=== PATIENT | male | born 1970 | race Caucasian/White ===

== ENCOUNTER 2018-10-22 23:49 | Observation (INO) | payer SELFPAY ==
[2018-10-23 00:10] LABS: Arterial Blood Carboxyhemoglob 1.1 % (0-1.5); Blood Gas Oxyhemoglobin 95.7 % (94-97); Blood O2 Saturation 97.9 % (92-98.5)
[2018-10-23 00:20] LABS: Protime INR 1.05
[2018-10-23 00:22] LABS: Absolute Lymphocytes (CBC) 3.5 K/uL (0.7-4.9); Absolute Monocytes 0.7 K/uL (0.1-1.3); Absolute Neutrophil 12.6 K/uL (1.8-8.0); Basophils % 0.6 % (0-1.3); Eosinophils % 5.1 % (0-4.4); Hematocrit 45.6 % (39.6-49.0); Lymphocytes % 19.4 % (15.3-44.8); Monocytes % 4.2 % (3.3-12.3); RBC Red Blood Cell Count 4.91 M/uL (4.33-5.43)
[2018-10-23 00:37] LABS: ALT/SGPT 31 U/L (12-78); AST/SGOT 22 U/L (15-37); Albumin 4.5 g/dL (3.4-5.0); Alkaline Phosphatase 88 U/L (45-117); BUN Blood Urea Nitrogen 8 mg/dL (7-18); Bicarbonate 32 mmol/L (21-32); Bilirubin Direct 0.2 mg/dL (0-0.2); Bilirubin Total 0.9 mg/dL (0.2-1.0); Glucose Level 137 mg/dL (74-106); Magnesium 2.2 mg/dL (1.8-2.4); NT PRO-BNP 8 pg/mL (<125); Potassium 3.9 mmol/L (3.5-5.1); Protein, Total 8.2 g/dL (6.4-8.2); Sodium Level 141 mmol/L (136-145); Troponin (Emerg Dept Use Only) < 0.02 ng/mL (0.0-0.045)
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
[2018-10-23] MEDS ORDERED: OSELTAMIVIR 75 MG CAP ONE (01:06)
[2018-10-23] MEDS ORDERED: ONDANSETRON 4 MG/2 ML VIAL IV PRN (01:58)
[2018-10-23] MEDS ORDERED: MORPHINE 2 MG/ML SYR IV PRN (01:58)
[2018-10-23] MEDS ORDERED: GUAIFENESIN/CODEINE 5ML UCUP PO PRN (01:58)
[2018-10-23] MEDS ORDERED: ACETAMINOPHEN 500 MG TAB PO PRN (01:58)
[2018-10-23] MEDS ORDERED: ALBUTEROL 2.5 MG/3 ML NEB SOL ONE (03:01)
[2018-10-23] MEDS: NA CHLORIDE 0.9% 1,000 ML IV SCH ×2 (03:47→15:20)
[2018-10-23 04:25] VITALS: BMI 24.2
[2018-10-23 04:45] LABS: Urine Appearance CLEAR; Urine Bilirubin NEGATIVE (NEG); Urine Blood NEGATIVE (NEG); Urine Color YELLOW; Urine Glucose TRACE (NEG); Urine Protein NEGATIVE (NEG)
[2018-10-23 04:46] LABS: Urine Microscopic Reflex NO UMIC
[2018-10-23] MEDS ORDERED: METHYLPREDNISOLONE 125 MG INJ IV SCH (06:00)
--- NOTE | 2018-10-23 06:59 | EKG ---
Test Date: 2018-10-22 Test Time: 23:58:14 Die Fitter: NELY MEASUREMENT RESULTS: Intervals: Rate: 118 OH: 134 QRSD: 84 QT: 324 QTc: 454 Ollie: P: 70 OH: 134 QRS: 61 T: 46 INTERPRETIVE STATEMENTS: Sinus tachycardia Junctional ST depression, probably normal Borderline ECG No previous ECG available for comparison Electronically Signed On 10-23-18 06:50:52 FORENSIC ACCOUNTANT by Ben Medina
[2018-10-23] MEDS ORDERED: MORPHINE 4 MG/ML SYR IV PRN (07:11)
[2018-10-23] MEDS: IPRATROPIUM BROM 0.5MG/2.5ML NEB PRN ×2 (08:36→15:26)
[2018-10-23] MEDS: ALBUTEROL 2.5 MG/3 ML NEB SOL NEB PRN ×2 (08:36→15:26)
--- NOTE | 2018-10-23 08:44 | P.HP ---
Certification for Inpatient Patient admitted to: Observation With expected LOS: <2 Midnights Patient will require the following post-hospital care: None Practitioner: I am a practitioner with admitting privileges, knowledge of patient current condition, hospital course, and medical plan of care. Services: Services provided to patient in accordance with Admission requirements found in Title 42 Section 412.3 of the Code of Federal Regulations Patient History Date of Service: 10/23/18 Reason for admission: influenza pneumonia History of Present Illness: Patient is a 48-year-old gentleman who is been having difficulty breathing for the last week. Patient's symptoms continued to worsen. Patient's respiratory status continued to worsen. Patient came into the hospital for further evaluation. Patient stated he was having pain whenever he was breathing. He can't get a deep breath in because he has pain on inspiration. He will be admitted to the hospital for further workup. Allergies No Known Allergies Allergy (Unverified 10/23/18 01:58) Home Medications: NK [No Home Meds] 10/23/18 - Past Medical/Surgical History Has patient received pneumonia vaccine in the past: No Diabetic: No Past Medical History: Patient denies medical history -: right hip surg - Family History Sister Medical History: Lung disease Notes: Asthma - Social History Smoking Status: Never smoker Alcohol use: Yes CD- Drugs: No Caffeine use: Yes Place of Residence: Home Review of Systems 10-point ROS is otherwise unremarkable Physical Examination - Vital Signs Temperature: 97.9 F Blood Pressure: 140/95 Pulse: 115 Respirations: 16 Pulse Ox (%): 100 - Physical Exam General: Alert, In no apparent distress, Oriented x3 HEENT: Atraumatic, PERRLA, Mucous membr. moist/pink, EOMI, Sclerae nonicteric Neck: Supple, 2+ carotid pulse no bruit, No LAD, Without JVD or thyroid abnormality Respiratory: Diminished, Expiratory wheezes Cardiovascular: Regular rate/rhythm, Normal S1 S2, No murmurs Gastrointestinal: Normal bowel sounds, Soft and benign, Non-distended, No tenderness Musculoskeletal: No clubbing, No swelling, No tenderness Integumentary: No rashes Neurological: Normal gait, Normal speech, Normal strength at 5/5 x4 extr, Normal tone, Sensation intact, Cranial nerves 3-12 intact, Normal affect Lymphatics: No axilla or inguinal lymphadenopathy - Studies Laboratory Data (last 24 hrs) 10/23/18 00:00: PT 12.4, INR 1.05 10/23/18 00:00: WBC 17.8 H, Hgb 15.7, Hct 45.6, Plt Count 377 10/23/18 00:00: Sodium 141, Potassium 3.9, BUN 8, Creatinine 1.09, Glucose 137 H , Magnesium 2.2, Total Bilirubin 0.9, AST 22, ALT 31, Alkaline Phosphatase 88 Microbiology Data (last 24 hrs): 10/23/18 00:10 Nasopharnyx Influenza Type A Antigen Screen - Final 10/23/18 00:10 Nasopharnyx Influenza Type B Antigen Screen - Final Assessment & Plan - Problems (Diagnosis) (1) Influenza, pneumonia Current Visit: Yes Status: Acute (2) Reactive airway disease Current Visit: Yes Status: Acute - Plan -nebs, steroids, and antivirals -O2 per protocol. -peak flow measurements -repeat chest x-ray -pulmonary consultation if symptoms worsen Discharge Plan: Home Plan to discharge in: 48 Hours - Advance Directives Does patient have a Living Will: No Does patient have a Durable POA for Healthcare: No - Code Status/Comfort Care Code Status Assessed: Yes Code Status: Full Code Critical Care: No Time Spent Managing PTS Care (In Minutes): 45
[2018-10-23 08:47] LABS: Absolute Lymphocytes (CBC) 0.7 K/uL (0.7-4.9); Absolute Monocytes 0.1 K/uL (0.1-1.3); Absolute Neutrophil 11.7 K/uL (1.8-8.0); Basophils % 0.5 % (0-1.3); Eosinophils % 0.3 % (0-4.4); Hematocrit 44.7 % (39.6-49.0); Lymphocytes % 5.6 % (15.3-44.8); MPV 8.4 fL (7.6-11.3); Monocytes % 0.4 % (3.3-12.3)
--- NOTE | 2018-10-23 08:51 | RAD REPORT ---
EXAM DESCRIPTION: RAD - Chest Single View - 10/23/2018 12:17 am CLINICAL HISTORY: SOB Chest pain. COMPARISON: Thorax W/ Con dated 10/23/2018 FINDINGS: Portable technique limits examination quality. The lungs are grossly clear. The heart is normal in size. No displaced fractures. IMPRESSION: No acute intrathoracic process suspected.
--- NOTE | 2018-10-23 08:58 | RAD REPORT ---
EXAM DESCRIPTION: CT - Thorax W/ Con CLINICAL HISTORY: Chest pain pneumonia; rubs COMPARISON: No comparisons FINDINGS: The lungs are clear. No pleural thickening or pleural effusion. No pneumothorax. No axillary, mediastinal or hilar adenopathy. No concerning bony finding. No gross upper abdominal finding. All CT scans are performed using dose optimization technique as appropriate and may include automated exposure control or mA/KV adjustment according to patient size. IMPRESSION: Negative study.
[2018-10-23] MEDS ORDERED: OSELTAMIVIR 75 MG CAP PO SCH (09:00)
[2018-10-23] MEDS ORDERED: CEFTRIAXONE/SWI 1gm 1 GM/10 ML SYR IV SCH (09:00)
[2018-10-23] MEDS ORDERED: CEFTRIAXONE 1 GM/NS 50 ML 1 GM/50 ML BAG IV SCH (09:00)
[2018-10-23 09:02] LABS: Albumin 4.2 g/dL (3.4-5.0); Potassium 4.1 mmol/L (3.5-5.1); Protein, Total 7.9 g/dL (6.4-8.2)
[2018-10-23 09:19] LABS: Blood Morphology Comment NOT SEEN (NOT SEEN); Platelet Estimate ADEQ; Urine White Blood Cell Casts OK
[2018-10-23 09:26] VITALS: O2SAT 95
[2018-10-23 15:04] VITALS: BP 135/79; TEMP 98.6
== END 2018-10-23 17:30 | disposition home or self-care (01) ==
LOC: ER 23:49 → ERHOLD 10-23 01:59 → 2ND 10-23 02:44
PROVIDERS: ADMIT Hospitalist; ATTEND Hospitalist
DX: J11.00 Influenza due to unidentified influenza virus with unspecified type of pneumonia (principal); J45.909 Unspecified asthma, uncomplicated
CPT/HCPCS: 36415; 71045; 71260; 80048; 80053; 80076; 81003; 82805; 83735; 83880; 84484; 85025; 85610; 87040; 87804; 93005; 94660; 99285; G0378; J0696; J2930; J7030; Q9967

== ENCOUNTER 2018-11-18 19:37 | Emergency (ER) | payer SELFPAY ==
[2018-11-18] MEDS ORDERED: LEVALBUTEROL 1.25 MG/3 ML NEB ONE (20:22)
[2018-11-18] MEDS ORDERED: predniSONE 20 MG TAB ONE (20:22)
[2018-11-18] MEDS ORDERED: IPRATROPIUM BROM 0.5MG/2.5ML ONE (20:22)
--- NOTE | 2018-11-18 20:44 | RAD REPORT ---
EXAM DESCRIPTION: RAD - Chest Pa And Lat (2 Views) - 11/18/2018 8:24 pm CLINICAL HISTORY: Shortness of breath COMPARISON: September 2018 TECHNIQUE: PA and lateral views of the chest were obtained. FINDINGS: The lungs are clear of focal finding. Interstitial markings are prominent but not clearly different. Heart size is normal and central vasculature is within normal limits. No pleural effusi on or pneumothorax seen. No acute bony finding noted. No aortic abnormality. IMPRESSION: No acute cardiopulmonary process. No significant change from comparison.
[2018-11-18] MEDS ORDERED: DIAZEPAM 10 MG/2 ML INJ SYRINGE ONE (21:36)
[2018-11-18] MEDS ORDERED: EPINEPHRINE INH 0.5 ML VIAL IH ONE (21:36)
--- NOTE | 2018-11-18 22:47 | ER ---
Nurse's Notes [facility] Name: Oni Barroso Age: 48 yrs Sex: Male : 1970 Arrival Date: 11/18/2018 Time: 19:40 Bed 2 Private MD: Diagnosis: Asthma Presentation: 11/18 19:41 Presenting complaint: EMS states: Shortness of breath for about one day. Had these same ed1 symptoms about a month ago. Transition of care: patient was not received from another setting of care. Onset of symptoms was November 17, 2018. Risk Assessment: Do you want to hurt yourself or someone else? Patient reports no desire to harm self or others. Initial Sepsis Screen: Does the patient meet any 2 criteria? No. Patient's initial sepsis screen is negative. Does the patient have a suspected source of infection? No. Patient's initial sepsis screen is negative. Care prior to arrival: Medication(s) given: Atrovent Neb x 1, Soul-medrol 125mg IV IV initiated. 20 GA, in the left antecubital area, Med neb given. Oxygen administered. via nasal cannula. 19:41 Method Of Arrival: EMS: [facility] ed1 19:41 Acuity: LASHAUN 3 ed1 Triage Assessment: 19:45 General: Appears in no apparent distress. Behavior is calm, cooperative. Pain: Denies ed1 pain. EENT: No signs and/or symptoms were reported regarding the EENT system. Neuro: Level of Consciousness is awake, alert, obeys commands, Oriented to person, place, time, situation. Cardiovascular: Denies chest pain, Heart tones S1 S2 present Rhythm is sinus tachycardia. Respiratory: Reports shortness of breath at rest since yesterday Airway is patent Respiratory effort is even, unlabored, Respiratory pattern is regular, symmetrical, Breath sounds with wheezes bilaterally. Onset: The symptoms/episode began/occurred yesterday, the patient has moderate shortness of breath. GI: Abdomen is non-distended, Bowel sounds present X 4 quads. Patient currently denies diarrhea, nausea, vomiting. : No signs and/or symptoms were reported regarding the genitourinary system. Derm: Skin is intact, is healthy with good turgor, Skin is dry, Skin is normal, Skin temperature is warm. Musculoskeletal: Circulation, motion, and sensation intact. Range of motion: intact in all extremities. Historical: - Allergies: 19:45 No Known Allergies; ed1 - Home Meds: 19:45 Albuterol Inhl [Active]; ed1 - PMHx: 19:45 None; ed1 - PSHx: 19:45 right leg fracture repair; ed1 - Immunization history:: Adult Immunizations up to date, Flu vaccine is not up to date. - Social history:: Smoking status: Patient/guardian denies using tobacco, Patient/guardian denies using alcohol, street drugs, The patient lives with family. - Ebola Screening: : Patient negative for fever greater than or equal to 101.5 degrees Fahrenheit, and additional compatible Ebola Virus Disease symptoms Patient denies exposure to infectious person Patient denies travel to an Ebola-affected area in the 21 days before illness onset No symptoms or risks identified at this time. - Family history:: not pertinent. Screenin:49 Abuse screen: Denies threats or abuse. Denies injuries from another. Nutritional ed1 screening: No deficits noted. Tuberculosis screening: No symptoms or risk factors identified. Fall Risk No fall in past 12 months (0 pts). No secondary diagnosis (0 pts). IV access (20 points). Ambulatory Aid- None/Bed Rest/Nurse Assist (0 pts). Gait- Normal/Bed Rest/Wheelchair (0 pts) Mental Status- Oriented to own ability (0 pts). Total Brar Fall Scale indicates No Risk (0-24 pts). Assessment: 19:49 Reassessment: See triage assessment. Cardiovascular: Denies chest pain, Heart tones S1 ed1 S2 present Rhythm is sinus tachycardia. 21:04 Reassessment: Patient appears in no apparent distress at this time. Patient and/or ed1 family updated on plan of care and expected duration. Pain level reassessed. Patient is alert, oriented x 3, equal unlabored respirations, skin warm/dry/pink. Patient denies pain at this time. Respiratory: Airway is patent Respiratory effort is even, unlabored, Respiratory pattern is regular, symmetrical, Breath sounds with wheezes bilaterally. the patient has moderate shortness of breath. 22:33 Reassessment: Patient appears in no apparent distress at this time. Patient and/or ed1 family updated on plan of care and expected duration. Pain level reassessed. Patient is alert, oriented x 3, equal unlabored respirations, skin warm/dry/pink. Patient denies pain at this time. Patient states feeling better. Patient states symptoms have improved. 23:00 Reassessment: Patient appears in no apparent distress at this time. Patient and/or ed1 family updated on plan of care and expected duration. Pain level reassessed. Patient is alert, oriented x 3, equal unlabored respirations, skin warm/dry/pink. Patient denies pain at this time. Patient states feeling better. Patient states symptoms have improved. Vital Signs: 19:45 BP 173 / 106; Pulse 118; Resp 20; Temp 98.4; Pulse Ox 98% on R/A; Pain 0/10; ed1 19:55 BP 145 / 92; Pulse 122; Resp 12; Pulse Ox 98% on R/A; lp1 21:04 BP 128 / 93; Pulse 120; Resp 21; Pulse Ox 100% on R/A; Pain 0/10; ed1 22:33 BP 122 / 74; Pulse 126; Resp 22; Pulse Ox 93% on R/A; Pain 0/10; ed1 ED Course: 19:40 Patient arrived in ED. ed1 19:43 Triage completed. ed1 19:45 Jennifer Ramirez, RN is Primary Nurse. ed1 19:45 Arm band placed on. ed1 19:49 Awaiting ED provider evaluation. ed1 19:49 Patient has correct armband on for positive identification. Placed in gown. Bed in low ed1 position. Call light in reach. Side rails up X2. tractor operator helper on. Pulse ox on. NIBP on. 19:49 Maintain EMS IV. Dressing intact. Good blood return noted. Site clean \T\ dry. Gauge \T\ ed 1 site: 20g left a/c. 19:59 Livan Lund MD is Attending Physician. ma2 20:22 Chest Pa And Lat (2 Views) XRAY In Process Unspecified. EDMS 23:00 No provider procedures requiring assistance completed. IV discontinued, intact, ed1 bleeding controlled, No redness/swelling at site. Pressure dressing applied. Administered Medications: 20:15 CANCELLED (Other Intervention Used): Albuterol 2.5 mg Inhalation every 20 minutes x3 ed1 20:16 Drug: AtroVENT Aerosol 0.5 mg Route: Inhalation; ed1 20:16 Drug: predniSONE 60 mg Route: PO; ed1 21:05 Follow up: Response: No adverse reaction ed1 20:16 Drug: Xopenex (3) 1.25 mg Route: Inhalation; ed1 20:36 Drug: AtroVENT Aerosol 0.5 mg Route: Inhalation; ed1 20:56 Drug: AtroVENT Aerosol 0.5 mg Route: Inhalation; ed1 21:34 Drug: Racemic EPINPHrine 0.5 ml Route: Inhalation; ed1 21:35 Drug: Valium 5 mg Route: IVP; Site: left antecubital; ed1 22:34 Drug: Valium 5 mg Route: IVP; Site: left antecubital; ed1 22:59 Follow up: Response: No adverse reaction ed1 22:59 Drug: AZITHromycin 500 mg Route: PO; ed1 22:59 Follow up: Response: Medication administered at discharge. ed1 Outcome: 22:45 Discharge ordered by . [email or web address] 23:00 Discharged to home ambulatory, with friend. ed1 23:00 Condition: good 23:00 Discharge instructions given to patient, Instructed on discharge instructions, follow up and referral plans. medication usage, Demonstrated understanding of instructions, follow-up care, medications, Prescriptions given X 3. 23:01 Patient left the ED. ed1 Signatures: Dispatcher [employer] EDMS Jennifer Ramirez RN RN ed1 Shereen Reynoso RN RN lp1 Livan Lund MD MD ma2 Corrections: (The following items were deleted from the chart) 21:31 21:30 Valium 5 mg IVP in left antecubital ed1 ed1 22:10 21:35 Valium 5 mg IVP in left antecubital ed1 ed1
--- NOTE | 2018-11-18 22:47 | EDPHYS ---
Physician Documentation [facility] Name: Oni Barroso Age: 48 yrs Sex: Male : 1970 Arrival Date: 11/18/2018 Time: 19:40 Bed 2 Private MD: ED Physician Livan Lund HPI: 11/18 20:06 This 48 yrs old Male presents to ER via EMS with complaints of Shortness Of ma2 Breath. 20:06 The patient has shortness of breath at rest. Onset: The symptoms/episode began/occurred ma2 gradually, 1 week(s) ago. Duration: The symptoms are continuous. Associated signs and symptoms: Pertinent positives: non-productive cough, Pertinent negatives: chest pain, diaphoresis, fever, loss of consciousness, nausea. Severity of symptoms: At their worst the symptoms were mild in the emergency department the symptoms are unchanged. The patient has experienced similar episodes in the past. Historical: - Allergies: 19:45 No Known Allergies; ed1 - Home Meds: 19:45 Albuterol Inhl [Active]; ed1 - PMHx: 19:45 None; ed1 - PSHx: 19:45 right leg fracture repair; ed1 - Immunization history:: Adult Immunizations up to date, Flu vaccine is not up to date. - Social history:: Smoking status: Patient/guardian denies using tobacco, Patient/guardian denies using alcohol, street drugs, The patient lives with family. - Ebola Screening: : Patient negative for fever greater than or equal to 101.5 degrees Fahrenheit, and additional compatible Ebola Virus Disease symptoms Patient denies exposure to infectious person Patient denies travel to an Ebola-affected area in the 21 days before illness onset No symptoms or risks identified at this time. - Family history:: not pertinent. ROS: 20:06 Constitutional: Negative for fever, chills, and weight loss. ma2 20:06 Respiratory: Positive for shortness of breath, Negative for hemoptysis, pleurisy, sputum production, acute changes. 20:06 All other systems are negative. Exam: 20:06 Constitutional: This is a well developed, well nourished patient who is awake, alert, ma2 and in no acute distress. ENT: Nares patent. No nasal discharge, no septal abnormalities noted. Tympanic membranes are normal and external auditory canals are clear. Oropharynx with no redness, swelling, or masses, exudates, or evidence of obstruction, uvula midline. Mucous membranes moist. Chest/axilla: Normal chest wall appearance and motion. Nontender with no deformity. No lesions are appreciated. Cardiovascular: Regular rate and rhythm with a normal S1 and S2. No gallops, murmurs, or rubs. Normal PMI, no JVD. No pulse deficits. Abdomen/GI: Soft, non-tender, with normal bowel sounds. No distension or tympany. No guarding or rebound. No evidence of tenderness throughout. MS/ Extremity: Pulses equal, no cyanosis. Neurovascular intact. Full, normal range of motion. Neuro: Awake and alert, GCS 15, oriented to person, place, time, and situation. Cranial nerves II-XII grossly intact. Motor strength 5/5 in all extremities. Sensory grossly intact. Cerebellar exam normal. Normal gait. 20:06 Respiratory: moderate respiratory distress is noted, Respirations: no acute changes, asymmetrical chest movement, Breath sounds: wheezing: Respiratory rate: 20 Vital Signs: 19:45 BP 173 / 106; Pulse 118; Resp 20; Temp 98.4; Pulse Ox 98% on R/A; Pain 0/10; ed1 19:55 BP 145 / 92; Pulse 122; Resp 12; Pulse Ox 98% on R/A; lp1 21:04 BP 128 / 93; Pulse 120; Resp 21; Pulse Ox 100% on R/A; Pain 0/10; ed1 22:33 BP 122 / 74; Pulse 126; Resp 22; Pulse Ox 93% on R/A; Pain 0/10; ed1 MDM: 19:59 Patient medically screened. ma2 20:06 Differential diagnosis: Anxiety Reaction asthma, pneumonia, reactive airway disease. ma2 Antibiotic administration: Not indicated. Data reviewed: vital signs, nurses notes, lab test result(s), radiologic studies. Counseling: I had a detailed discussion with the patient and/or guardian regarding: the historical points, exam findings, and any diagnostic results supporting the discharge/admit diagnosis, the presence of at least one elevated blood pressure reading (>120/80) during this emergency department visit. 22:45 Response to treatment: the patient's symptoms have markedly improved after treatment. ny2 11/18 19:55 Order name: Chest Pa And Lat (2 Views) XRAY; Complete Time: 21:13 lp1 11/18 19:55 Order name: EKG; Complete Time: 19:55 lp1 11/18 19:55 Order name: EKG - Nurse/Tech; Complete Time: 19:55 lp1 Administered Medications: 20:15 CANCELLED (Other Intervention Used): Albuterol 2.5 mg Inhalation every 20 minutes x3 ed1 20:16 Drug: AtroVENT Aerosol 0.5 mg Route: Inhalation; ed1 20:16 Drug: predniSONE 60 mg Route: PO; ed1 21:05 Follow up: Response: No adverse reaction ed1 20:16 Drug: Xopenex (3) 1.25 mg Route: Inhalation; ed1 20:36 Drug: AtroVENT Aerosol 0.5 mg Route: Inhalation; ed1 20:56 Drug: AtroVENT Aerosol 0.5 mg Route: Inhalation; ed1 21:34 Drug: Racemic EPINPHrine 0.5 ml Route: Inhalation; ed1 21:35 Drug: Valium 5 mg Route: IVP; Site: left antecubital; ed1 22:34 Drug: Valium 5 mg Route: IVP; Site: left antecubital; ed1 22:59 Follow up: Response: No adverse reaction ed1 22:59 Drug: AZITHromycin 500 mg Route: PO; ed1 22:59 Follow up: Response: Medication administered at discharge. ed1 Disposition: 11/18/18 22:45 Discharged to Home. Impression: Asthma. - Condition is Stable. - Discharge Instructions: Asthma, Acute Bronchospasm. - Prescriptions for Medrol (Melvin) 4 mg Oral Tablets, Dose Pack - take 1 tablet by ORAL route as directed - follow package instructions; 1 packet. Flovent HFA 44 mcg/actuation Inhalation Aerosol - inhale 2 puff by INHALATION route every 12 hours; 1 Inhaler. Albuterol Sulfate 90 mcg/actuation - inhale 1-2 puff by INHALATION route every 4-6 hours; 1 Inhaler. - Medication Reconciliation Form, Thank You Letter, Antibiotic Education, Prescription Opioid Use form. - Follow up: Private Physician; When: Tomorrow; Reason: Continuance of care. Signatures: Dispatcher [employer] EDJennifer Dupree RN RN ed1 Shereen Reynoso RN RN lp1 Livan Lund MD MD ma2 Corrections: (The following items were deleted from the chart) 20:15 20:06 Albuterol 2.5 mg Inhalation every 20 minutes x3 ordered. ma2 ed1 23:01 22:45 11/18/2018 22:45 Discharged to Home. Impression: Asthma. Condition is Stable. ed1 Discharge Instructions: Asthma, Acute Bronchospasm. Prescriptions for Medrol (Melvin) 4 mg Oral Tablets, Dose Pack - take 1 tablet by ORAL route as directed - follow package instructions; 1 packet, Flovent HFA 44 mcg/actuation Inhalation Aerosol - inhale 2 puff by INHALATION route every 12 hours; 1 Inhaler, Albuterol Sulfate 90 mcg/actuation - inhale 1-2 puff by INHALATION route every 4-6 hours; 1 Inhaler. and Forms are Medication Reconciliation Form, Thank You Letter, Antibiotic Education, Prescription Opioid Use. Follow up: Private Physician; When: Tomorrow; Reason: Continuance of care. ma2
[2018-11-18] MEDS ORDERED: AZITHROMYCIN 250 MG TAB ONE (23:02)
[2018-11-18 23:09] VITALS: TEMP 98.4
[2018-11-18 23:21] VITALS: BP 122/74; O2SAT 93
--- NOTE | 2018-11-19 06:56 | EKG ---
Test Date: 2018-11-18 Test Time: 19:47:29 Jewelry Setter: GOKUL MEASUREMENT RESULTS: Intervals: Rate: 117 IN: 116 QRSD: 78 QT: 306 QTc: 426 Lavinia: P: 6 IN: 116 QRS: 79 T: 58 INTERPRETIVE STATEMENTS: Sinus tachycardia Otherwise normal ECG Compared to ECG 10/22/2018 23:58:14 ST (T wave) deviation no longer present Electronically Signed On 11-19-18 06:54:44 IRON MINER BLASTING by Ben Medina
== END 2018-11-18 23:01 | disposition home or self-care (01) ==
LOC: ER 19:37
DX: J45.909 Unspecified asthma, uncomplicated (principal)
CPT/HCPCS: 71046; 93005; 99285; J3360; J7512

== ENCOUNTER 2018-12-03 20:29 | Inpatient (IN) | payer SELFPAY ==
[2018-12-03] MEDS ORDERED: IPRATROPIUM BROM 0.5MG/2.5ML ONE ×2 (20:53→22:26)
[2018-12-03] MEDS ORDERED: ALBUTEROL 2.5 MG/3 ML NEB SOL ONE ×2 (20:53→22:25)
--- NOTE | 2018-12-03 20:54 | RAD REPORT ---
EXAM DESCRIPTION: RAD - Chest Single View - 12/03/2018 8:49 pm CLINICAL HISTORY: COPD Chest pain. COMPARISON: Chest Pa And Lat (2 Views) dated 11/18/2018; Chest Single View dated 10/23/2018 FINDINGS: Portable technique limits examination quality. The lungs are mildly emphysematous but grossly clear. The heart is normal in size. No displaced fract ures. IMPRESSION: Mild COPD.
[2018-12-03 21:13] LABS: Absolute Lymphocytes (CBC) 2.3 K/uL (0.7-4.9); Absolute Monocytes 0.8 K/uL (0.1-1.3); Absolute Neutrophil 17.9 K/uL (1.8-8.0); Basophils % 0.5 % (0-1.3); Eosinophils % 3.2 % (0-4.4); Hematocrit 42.9 % (39.6-49.0); Lymphocytes % 10.6 % (15.3-44.8); MPV 8.7 fL (7.6-11.3); Monocytes % 3.7 % (3.3-12.3); RBC Red Blood Cell Count 4.56 M/uL (4.33-5.43)
[2018-12-03 21:22] LABS: BUN Blood Urea Nitrogen 11 mg/dL (7-18); Bicarbonate 28 mmol/L (21-32); Glucose Level 115 mg/dL (74-106); NT PRO-BNP 37 pg/mL (<125); Potassium 3.4 mmol/L (3.5-5.1); Sodium Level 142 mmol/L (136-145); Troponin (Emerg Dept Use Only) < 0.02 ng/mL (0.0-0.045)
[2018-12-03 22:35] LABS: Blood Morphology Comment NOT SEEN (NOT SEEN); Platelet Estimate ADEQ
--- NOTE | 2018-12-03 23:45 | ER ---
Nurse's Notes [facility] Name: Oni Barroso Age: 48 yrs Sex: Male : 1970 Arrival Date: 12/03/2018 Time: 20:38 Bed 4 Private MD: Diagnosis: Chronic obstructive pulmonary disease with (acute) exacerbation;Acute respiratory failure with hypoxia Presentation: 12/03 20:45 Presenting complaint: EMS states: they were toned out for report of pt having bb difficulty breathing worsening over the last two hours pt has hx of asthma. Transition of care: patient was not received from another setting of care. Onset of symptoms was December 03, 2018. Risk Assessment: Do you want to hurt yourself or someone else? Patient reports no desire to harm self or others. Initial Sepsis Screen: Does the patient meet any 2 criteria? No. Patient's initial sepsis screen is negative. Does the patient have a suspected source of infection? No. Patient's initial sepsis screen is negative. Care prior to arrival: pt on Cpap Medication(s) given: Albuterol Neb x 1, Atrovent Neb x 1, Normal saline infusion, solu-medrol 125 mg IV initiated. 18 GA, in the right antecubital area. 20:45 Method Of Arrival: Ambulatory bb 20:45 Acuity: LASHAUN 2 bb Historical: - Allergies: 20:50 No Known Allergies; bb - Home Meds: 20:50 Albuterol Inhl [Active]; bb - PMHx: 20:50 Asthma; bb - PSHx: 20:50 right leg fracture repair; bb - Immunization history:: Adult Immunizations up to date, Flu vaccine is not up to date. - Social history:: Smoking status: Patient/guardian denies using tobacco, Patient uses alcohol, occasionally. Patient/guardian denies using street drugs. - Ebola Screening: : No symptoms or risks identified at this time. Screenin:00 Abuse screen: Denies threats or abuse. Denies injuries from another. Nutritional rr5 screening: No deficits noted. Tuberculosis screening: No symptoms or risk factors identified. Fall Risk IV access (20 points). Total Brar Fall Scale indicates No Risk (0-24 pts). Assessment: 20:50 General: Appears in no apparent distress. comfortable, Behavior is calm, cooperative, rr5 appropriate for age. Pain: Complains of pain in chest Pain does not radiate. Pain currently is 5 out of 10 on a pain scale. Quality of pain is described as aching, Pain began gradually, Is intermittent. Neuro: Level of Consciousness is awake, alert, obeys commands, Oriented to person, place, time, situation, Appropriate for age. Cardiovascular: Reports chest pain, Capillary refill < 3 seconds Patient's skin is warm and dry. Rhythm is sinus tachycardia. Respiratory: Reports shortness of breath asthma attack Airway is patent Respiratory effort is even, Respiratory pattern is regular, tachypnea. GI: No signs and/or symptoms were reported involving the gastrointestinal system. : No signs and/or symptoms were reported regarding the genitourinary system. EENT: No signs and/or symptoms were reported regarding the EENT system. Derm: Skin is intact, Skin temperature is warm. Musculoskeletal: Capillary refill < 3 seconds, Range of motion: intact in all extremities. 21:15 Reassessment: Patient appears in no apparent distress at this time. Patient is alert, rr5 oriented x 3, equal unlabored respirations, skin warm/dry/pink. Patient states feeling better. Patient states symptoms have improved. 22:00 Reassessment: Patient appears in no apparent distress at this time. Patient is alert, rr5 oriented x 3, equal unlabored respirations, skin warm/dry/pink. no complaints made. continue on BIPAP Patient states feeling better. Patient states symptoms have improved. 23:00 Reassessment: Patient appears in no apparent distress at this time. came back from CT rr5 scan hooked back to BIPAP. 12/04 00:36 Reassessment: Patient appears in no apparent distress at this time. Patient and/or jd3 family updated on plan of care and expected duration. Pain level reassessed. Patient is alert, oriented x 3, equal unlabored respirations, skin warm/dry/pink. awaiting room assignment for admission. 01:57 Reassessment: Patient appears in no apparent distress at this time. Patient and/or jd3 family updated on plan of care and expected duration. Pain level reassessed. Patient is alert, oriented x 3, equal unlabored respirations, skin warm/dry/pink. Vital Signs: 12/03 20:50 BP 122 / 94; Pulse 112; Resp 32 S; Temp 97.6(A); Pulse Ox 100% on R/A; Weight 77.11 kg bb (R); Height 5 ft. 10 in. (177.80 cm) (R); Pain 5/10; 21:30 BP 105 / 76; Pulse 106; Resp 30; Pulse Ox 99% on BiPAP; rr5 22:30 BP 110 / 68; Pulse 105; Resp 25; Pulse Ox 100% on BiPAP; rr5 23:11 BP 125 / 92; Pulse 102; Resp 28; Pulse Ox 99% on BiPAP; rr5 12/04 00:36 BP 132 / 82; Pulse 105; Resp 20 S; Pulse Ox 100% on R/A; jd3 01:55 BP 132 / 82; Pulse 115; Resp 22; Pulse Ox 100% ; jd3 12/03 20:50 Body Mass Index 24.39 (77.11 kg, 177.80 cm) bb ED Course: 12/03 20:38 Patient arrived in ED. ds1 20:38 Elpidio Guzman MD is Attending Physician. gs 20:49 Triage completed. bb 20:50 XRAY Chest (1 view) In Process Unspecified. EDMS 20:50 Arm band placed on Patient placed in an exam room, on a stretcher, on campus monitor, bb on pulse oximetry, on Bipap. 20:50 Patient has correct armband on for positive identification. Placed in gown. Bed in low rr5 position. Call light in reach. Side rails up X2. radiation monitor on. Pulse ox on. NIBP on. 20:50 Maintain EMS IV. Dressing intact. IV is patent, is intact, with fluids infusing freely, rr5 with good blood return. 21:03 Gaurav Ruiz RN is Primary Nurse. rr5 22:[address] via stretcher. vm2 23:14 CT Chest Wo Con In Process Unspecified. EDMS 23:44 Livan Nicolas MD is Hospitalizing Provider. gs 12/04 02:02 No provider procedures requiring assistance completed. Patient admitted, IV remains in jd3 place. Administered Medications: 12/03 20:45 Drug: Albuterol 2.5 mg Route: Inhalation; rr5 20:45 Drug: AtroVENT Aerosol 0.5 mg Route: Inhalation; rr5 22:20 Drug: Albuterol 2.5 mg Route: Inhalation; rr5 22:20 Drug: AtroVENT Aerosol 0.5 mg Route: Inhalation; rr5 Outcome: 23:44 Decision to Hospitalize by Provider. 12/04 02:02 Admitted to Med/surg accompanied by tech, via stretcher, room 231, with oxygen, with jd3 chart, Report called to Rosalba FERNANDEZ Condition: stable Instructed on the need for admit, Demonstrated understanding of instructions. 02:25 Patient left the ED. jd3 Signatures: Dispatcher [employer] EDNE Amira Vallejo ds1 Maricel Reece RN RN Omayra Ayala 2 Elpidio Guzman MD MD gs Davies, Jonathon, RN RN jd3 Gaurav Ruiz RN RN rr5
--- NOTE | 2018-12-03 23:45 | EDPHYS ---
Physician Documentation [facility] Unit Name: Oni Barroso Age: 48 yrs Sex: Male : 1970 Arrival Date: 12/03/2018 Time: 20:38 Bed 4 Private MD: ED Physician Elpidio Guzman HPI: 12/03 23:30 This 48 yrs old Male presents to ER via Ambulatory with complaints of gs Breathing Difficulty. 23:30 Onset: The symptoms/episode began/occurred today, at 14:00. Duration: The symptoms are gs continuous. The patient's shortness of breath is aggravated by coughing, eating, exertion. Associated signs and symptoms: Pertinent positives: chest pain, non-productive cough, Pertinent negatives: fever. Severity of symptoms: At their worst the symptoms were severe in the emergency department the symptoms are unchanged. The patient has experienced similar episodes in the past, a few times. Historical: - Allergies: 20:50 No Known Allergies; bb - Home Meds: 20:50 Albuterol Inhl [Active]; bb - PMHx: 20:50 Asthma; bb - PSHx: 20:50 right leg fracture repair; bb - Immunization history:: Adult Immunizations up to date, Flu vaccine is not up to date. - Social history:: Smoking status: Patient/guardian denies using tobacco, Patient uses alcohol, occasionally. Patient/guardian denies using street drugs. - Ebola Screening: : No symptoms or risks identified at this time. ROS: 23:30 All other systems are negative. gs Exam: 23:30 Head/Face: Normocephalic, atraumatic. Eyes: Pupils equal round and reactive to light, gs extra-ocular motions intact. Lids and lashes normal. Conjunctiva and sclera are non-icteric and not injected. Cornea within normal limits. Periorbital areas with no swelling, redness, or edema. ENT: Nares patent. No nasal discharge, no septal abnormalities noted. Tympanic membranes are normal and external auditory canals are clear. Oropharynx with no redness, swelling, or masses, exudates, or evidence of obstruction, uvula midline. Mucous membranes moist. Neck: Trachea midline, no thyromegaly or masses palpated, and no cervical lymphadenopathy. Supple, full range of motion without nuchal rigidity, or vertebral point tenderness. No Meningismus. Chest/axilla: Normal chest wall appearance and motion. Nontender with no deformity. No lesions are appreciated. 23:30 Abdomen/GI: Soft, non-tender, with normal bowel sounds. No distension or tympany. No guarding or rebound. No evidence of tenderness throughout. Back: No spinal tenderness. No costovertebral tenderness. Full range of motion. Skin: Warm, dry with normal turgor. Normal color with no rashes, no lesions, and no evidence of cellulitis. MS/ Extremity: Pulses equal, no cyanosis. Neurovascular intact. Full, normal range of motion. Neuro: Awake and alert, GCS 15, oriented to person, place, time, and situation. Cranial nerves II-XII grossly intact. Motor strength 5/5 in all extremities. Sensory grossly intact. Cerebellar exam normal. Normal gait. 23:30 Constitutional: The patient appears alert, awake. 23:30 Constitutional: The patient appears in obvious distress, severely distressed. 23:30 Cardiovascular: Rate: tachycardic, Rhythm: regular, Pulses: no pulse deficits are appreciated, Heart sounds: normal. 23:30 ECG was reviewed by the Attending Physician. 23:30 Respiratory: severe repiratory distress is noted, Respirations: tachypnea, that is moderate, Breath sounds: decreased breath sounds, that are moderate, are scattered. Vital Signs: 20:50 BP 122 / 94; Pulse 112; Resp 32 S; Temp 97.6(A); Pulse Ox 100% on R/A; Weight 77.11 kg bb (R); Height 5 ft. 10 in. (177.80 cm) (R); Pain 5/10; 21:30 BP 105 / 76; Pulse 106; Resp 30; Pulse Ox 99% on BiPAP; rr5 22:30 BP 110 / 68; Pulse 105; Resp 25; Pulse Ox 100% on BiPAP; rr5 23:11 BP 125 / 92; Pulse 102; Resp 28; Pulse Ox 99% on BiPAP; rr5 12/04 00:36 BP 132 / 82; Pulse 105; Resp 20 S; Pulse Ox 100% on R/A; jd3 01:55 BP 132 / 82; Pulse 115; Resp 22; Pulse Ox 100% ; jd3 12/03 20:50 Body Mass Index 24.39 (77.11 kg, 177.80 cm) MDM: 12/03 20:38 Patient medically screened. 23:30 Differential diagnosis: Bronchitis CHF exacerbation, Chronic Obstructive Pulmonary gs Disease Myocardial Infarction pneumonia. Data reviewed: vital signs, nurses notes, lab test result(s), EKG, radiologic studies. 12/03 20:39 Order name: Basic Metabolic Panel; Complete Time: 22:01 12/03 20:39 Order name: CBC with Diff; Complete Time: 23:27 12/03 20:39 Order name: NT PRO-BNP; Complete Time: 22:01 12/03 20:39 Order name: Troponin (emerg Dept Use Only); Complete Time: 22:01 12/03 21:25 Order name: Manual Differential; Complete Time: 23:27 [facility] 12/04 00:36 Order name: CBC with Automated Diff [facility] 12/03 20:39 Order name: XRAY Chest (1 view); Complete Time: 20:58 12/03 22:02 Order name: CT Chest Wo Con 12/04 00:36 Order name: CBC with Automated Diff [facility] 12/04 00:36 Order name: Comprehensive Metabolic Panel [facility] 12/04 00:36 Order name: Comprehensive Metabolic Panel [facility] 12/04 00:37 Order name: ABG Arterial Blood Gas [facility] 12/03 20:39 Order name: EKG; Complete Time: 20:39 12/03 20:39 Order name: Cardiac monitoring; Complete Time: 20:57 12/03 20:39 Order name: EKG - Nurse/Tech; Complete Time: 20:57 12/03 20:39 Order name: IV Saline Lock; Complete Time: 20:57 12/03 20:39 Order name: Labs collected and sent; Complete Time: 20:57 12/03 20:39 Order name: O2 Per Protocol; Complete Time: 21:04 12/03 20:39 Order name: O2 Sat Monitoring; Complete Time: 21:04 12/04 00:35 Order name: CONS Pharmacy Consult [facility] 12/04 00:35 Order name: NPO [facility] 12/04 00:37 Order name: Regular EDMS EC:30 Rate is 102 beats/min. Rhythm is regular. FL interval is normal. QRS interval is gs normal. QT interval is normal. T waves are Normal. No ST changes noted. Clinical impression: Abnormal EKG without significant change. Interpreted by me. Administered Medications: 20:45 Drug: Albuterol 2.5 mg Route: Inhalation; rr5 20:45 Drug: AtroVENT Aerosol 0.5 mg Route: Inhalation; rr5 22:20 Drug: Albuterol 2.5 mg Route: Inhalation; rr5 22:20 Drug: AtroVENT Aerosol 0.5 mg Route: Inhalation; rr5 Disposition: 23:30 Critical Care:. Disposition: 12/03/18 23:44 Hospitalization ordered by Livan Nicolas for Inpatient Admission. Preliminary diagnosis are Chronic obstructive pulmonary disease with (acute) exacerbation, Acute respiratory failure with hypoxia. - Bed requested for Telemetry/MedSurg (Inpatient). - Status is Inpatient Admission. jd3 - Condition is Stable. - Problem is new. - Symptoms have improved. UTI on Admission? No Critical care time excluding procedures: 23:30 Critical care time: Bedside Care: 10 minutes, Consultation: 10 minutes, Family gs Intervention: 10 minutes. Total time: 30 minutes Signatures: Dispatcher [employer] EDPamela Agustin RN RN kl Ballard, Brenda, RN RN bb Starr, Gregory, MD MD gs Davies, Jonathon, RN RN jGaurav Medellin RN RN rr5 Corrections: (The following items were deleted from the chart) 12/04 01:22 12/03 23:44 Hospitalization Ordered by Livan Nicolas MD for Inpatient Admission. kl Preliminary diagnosis is Chronic obstructive pulmonary disease with (acute) exacerbation; Acute respiratory failure with hypoxia. Bed requested for Telemetry/MedSurg (Inpatient). Status is Inpatient Admission. Condition is Stable. Problem is new. Symptoms have improved. UTI on Admission? No. gs 12/04 02:25 01:22 12/03/2018 23:44 Hospitalization Ordered by Livan Nicolas MD for Inpatient jd3 Admission. Preliminary diagnosis is Chronic obstructive pulmonary disease with (acute) exacerbation; Acute respiratory failure with hypoxia. Bed requested for Telemetry/MedSurg (Inpatient). Status is Inpatient Admission. Condition is Stable. Problem is new. Symptoms have improved. UTI on Admission? No. kl
[2018-12-04] MEDS ORDERED: ONDANSETRON 4 MG/2 ML VIAL IV PRN (00:31)
[2018-12-04] MEDS ORDERED: MORPHINE 2 MG/ML SYR IV PRN (00:31)
[2018-12-04] MEDS ORDERED: Levofloxacin500mg IV 500 MG/100 ML BAG IV SCH (01:00)
[2018-12-04] MEDS ORDERED: NA CHLORIDE 0.9% 1,000 ML IV SCH (01:00)
[2018-12-04] MEDS: IPRATROPIUM BROM 0.5MG/2.5ML NEB SCH ×4 (02:00→20:00)
[2018-12-04] MEDS: ALBUTEROL 2.5 MG/3 ML NEB SOL NEB SCH ×2 (02:00→08:00)
[2018-12-04 03:25] VITALS: BMI 23.8
[2018-12-04] MEDS ORDERED: BUDESONIDE 0.5 MG/2 ML NEB NEB SCH (05:00)
[2018-12-04] MEDS ORDERED: METHYLPREDNISOLONE 40 MG INJ IV SCH (06:00)
[2018-12-04 06:11] LABS: Arterial Blood Carboxyhemoglob 0.9 % (0-1.5); Blood Gas Oxyhemoglobin 93.7 % (94-97); Blood O2 Saturation 95.4 % (92-98.5)
--- NOTE | 2018-12-04 07:18 | P.HP ---
Certification for Inpatient Patient admitted to: Inpatient With expected LOS: >2 Midnights Patient will require the following post-hospital care: None Practitioner: I am a practitioner with admitting privileges, knowledge of patient current condition, hospital course, and medical plan of care. Services: Services provided to patient in accordance with Admission requirements found in Title 42 Section 412.3 of the Code of Federal Regulations Patient History Date of Service: 12/04/18 Reason for admission: Shortness of breath History of Present Illness: Patient is a 48-year-old gentleman who came into the hospital with difficulty breathing. He said he has been having difficulty with his breathing for the last 2.5 years. He had moved in to a new apartment complex-[facility]-about 3 years ago. Since that time he says his respiratory status has gotten worse. He uses albuterol inhalers that he gets from is friends. He states the apartment has had mold in numerous other complexes. He stated that they did find mold in his closet. He has also used a nebulizer that he received from 1 of his friends children. He is not really sure what caused his difficulty with his breathing. He never really smoked although he has lived around people who smoke. He denies any cardiac issues. He walks his significant other to work every evening which is about a mile and a half away. He has to stop at her work can't catch his breath. He has gone on through 12 inhalers over the last 6 months. Once again these were obtained from friends as he has never gone to see a physician regarding his breathing. He denies any history of liver problems. His chest x-ray does indicate emphysematous changes. This could be a COPD exacerbation. Will also check alpha 1 antitrypsin levels. Allergies No Known Allergies Allergy (Verified 12/04/18 03:04) Home Medications: Albuterol Inhaler [Ventolin Inhaler*] 2 puff IH Q6H PRN #1 hfa.aer.ad 10/23/18 - Past Medical/Surgical History Has patient received pneumonia vaccine in the past: No Diabetic: No -: Denies any pulmonary issues -: right hip surgery - Family History Sister Medical History: Lung disease Notes: Asthma - Social History Smoking Status: Never smoker Alcohol use: No CD- Drugs: No Caffeine use: Yes Place of Residence: Home Review of Systems 10-point ROS is otherwise unremarkable Physical Examination - Vital Signs Temperature: 97.6 F Blood Pressure: 132/82 Pulse: 115 Respirations: 22 Pulse Ox (%): 96 - Physical Exam General: Alert, In no apparent distress, Oriented x3 HEENT: Atraumatic, PERRLA, Mucous membr. moist/pink, EOMI, Sclerae nonicteric Neck: Supple, 2+ carotid pulse no bruit, No LAD, Without JVD or thyroid abnormality Respiratory: Diminished, Expiratory wheezes Cardiovascular: Regular rate/rhythm, Normal S1 S2, No murmurs Gastrointestinal: Normal bowel sounds, Soft and benign, Non-distended, No tenderness Musculoskeletal: No clubbing, No swelling, No tenderness Integumentary: No rashes Neurological: Normal gait, Normal speech, Normal strength at 5/5 x4 extr, Normal tone, Sensation intact, Cranial nerves 3-12 intact, Normal affect Lymphatics: No axilla or inguinal lymphadenopathy - Studies Laboratory Data (last 24 hrs) 12/03/18 20:35: WBC 21.8 H*, Hgb 14.7, Hct 42.9, Plt Count 397 12/03/18 20:35: Sodium 142, Potassium 3.4 L, BUN 11, Creatinine 1.02, Glucose 115 H Assessment & Plan - Problems (Diagnosis) (1) Dyspnea Current Visit: Yes Status: Acute (2) Acute exacerbation of emphysema Current Visit: Yes Status: Acute - Plan Plan: 1. Continue with albuterol and Atrovent nebs 2. Continue with IV steroids 3. Outpatient pulmonary function testing 4. Pulmonary consultation 5. Room air O2 sats in a.m.; wean off of BiPAP today 6. Repeat chest x-ray in the morning 7. Peak flows as needed 8. GI and DVT prophylaxis Discharge Plan: Home Plan to discharge in: Greater than 2 days - Advance Directives Does patient have a Living Will: No Does patient have a Durable POA for Healthcare: No - Code Status/Comfort Care Code Status Assessed: Yes Code Status: Full Code Critical Care: No Time Spent Managing PTS Care (In Minutes): 50
[2018-12-04] MEDS ORDERED: BUPIVACAINE 0.5% PF 10 ML VIAL ONE (07:35)
[2018-12-04] MEDS ORDERED: BUDESONIDE 0.5 MG/2 ML NEB NEB ONE (08:45)
--- NOTE | 2018-12-04 08:46 | P.CNS ---
Date of Consult: 12/04/18 Chief Complaint: Shortness of breath History of Present Illness: patient is 48 years of age admitted to the hospital complaining of worsening dyspnea over the past 4-5 days. He was admitted to the hospital about 6 weeks ago for shortness of breath and was discharged on a tapering dose of 1st steroids and albuterol patient did improve. He has been having proctocolectomy dyspnea for the past 2 years there has been a lot of black mold discovered in his house and a recently in his bathroom. Patient does not smoke no medical history he does not take any medication at home patient does have some albuterol inhaler and a nebulizer that he used with no relief this time steroids seemed to help denies any fever cough sputum Allergies No Known Allergies Allergy (Verified 12/04/18 03:04) Home Medications: Albuterol Inhaler [Ventolin Inhaler*] 2 puff IH Q6H PRN #1 hfa.aer.ad 10/23/18 - Past Medical/Surgical History Diabetic: No -: Denies any pulmonary issues -: right hip surgery - Family History Sister Medical History: Lung disease Notes: Asthma - Social History Alcohol use: No CD- Drugs: No Caffeine use: Yes Place of Residence: Home Review of Systems 10-point ROS is otherwise unremarkable Physical Examination Temp Pulse Resp BP Pulse Ox 97.6 F 115 H 22 H 132/82 96 12/04/18 07:19 12/04/18 07:19 12/04/18 07:19 12/04/18 07:19 12/04/18 07:19 General: Alert, In no apparent distress, Oriented x3 HEENT: Atraumatic Neck: Supple Respiratory: Expiratory wheezes Cardiovascular: No edema, Normal S1 S2 Gastrointestinal: Normal bowel sounds, Soft and benign Laboratory Data (last 24 hrs) 12/03/18 20:35: WBC 21.8 H*, Hgb 14.7, Hct 42.9, Plt Count 397 12/03/18 20:35: Sodium 142, Potassium 3.4 L, BUN 11, Creatinine 1.02, Glucose 115 H - Problems (1) Reactive airway disease Onset Date: 10/24/18 Current Visit: No Status: Acute
[2018-12-04] MEDS: ALBUTEROL 2.5 MG/3 ML NEB SOL NEB PRN ×2 (08:51→13:32)
[2018-12-04] MEDS: DULERA 200/5 (MOMETASONE/FORMOTEROL) INHALER IH SCH ×2 (09:40→20:28)
[2018-12-04] MEDS: predniSONE 20 MG TAB PO SCH ×2 (09:41→20:28)
[2018-12-04] MEDS: AZITHROMYCIN 250 MG TAB PO SCH (09:41)
[2018-12-04] MEDS ORDERED: INFLUENZA VACCINE (for 3y+) 0.5 ML DOSE IMVAC ONE (10:00)
[2018-12-04 11:19] LABS: Absolute Lymphocytes (CBC) 0.8 K/uL (0.7-4.9); Absolute Monocytes 0.3 K/uL (0.1-1.3); Absolute Neutrophil 19.4 K/uL (1.8-8.0); Basophils % 0.1 % (0-1.3); Lymphocytes % 3.9 % (15.3-44.8); MPV 8.2 fL (7.6-11.3); Monocytes % 1.4 % (3.3-12.3); RBC Red Blood Cell Count 4.54 M/uL (4.33-5.43)
[2018-12-04 11:31] LABS: Bilirubin Total 1.5 mg/dL (0.2-1.0); Magnesium 2.1 mg/dL (1.8-2.4); Phosphorus 2.3 mg/dL (2.5-4.9); Protein, Total 7.5 g/dL (6.4-8.2)
--- NOTE | 2018-12-04 12:02 | RAD REPORT ---
EXAM DESCRIPTION: CT Chest Without Intravenous Contrast CLINICAL HISTORY: The patient is 48 years old and is Male; difficulty breathing TECHNIQUE: Axial computed tomography images of the chest without intravenous contrast. Sagittal an d coronal reformatted images were created and reviewed. This CT exam was performed using one or mor e of the following dose reduction techniques: automated exposure control, adjustment of the mA and/ or kV according to patient size, and/or use of iterative reconstruction technique. COMPARISON: No relevant prior studies available. FINDINGS: Lungs: A few calcified granuloma within the lung bases are present. The lungs are clear. There is no consolidation or mass. Pleural space: Unremarkable. No pneumothorax. No significant effusion. Heart: No cardiomegaly. No pericardial effusion. Bones/joints: No acute fracture. Soft tissues: The soft tissues are normal. Vasculature: Unremarkable. No thoracic aortic aneurysm. Lymph nodes: Unremarkable. No enlarged lymph nodes. IMPRESSION: Unremarkable noncontrasted CT of the chest. Electronically signed by: Lory Dunne MD 12/03/2018 11:19 PM CDT Due to temporary technical issues with the PACS/Fluency reporting system, reports are being signed by the in house radiologist as a courtesy to ensure prompt reporting. The interpreting radiologist is f ully responsible for the content of the report.
[2018-12-04] MEDS: ACETAMINOPHEN 500 MG TAB PO PRN ×2 (12:08→17:10)
[2018-12-04] MEDS ORDERED: ENOXAPARIN 30 MG/0.3 ML SQ SCH (17:00)
[2018-12-05] MEDS: IPRATROPIUM BROM 0.5MG/2.5ML NEB SCH ×3 (02:00→14:37)
[2018-12-05 06:02] LABS: Absolute Lymphocytes (CBC) 1.2 K/uL (0.7-4.9); Absolute Monocytes 1.4 K/uL (0.1-1.3); Absolute Neutrophil 23.7 K/uL (1.8-8.0); Basophils % 0.2 % (0-1.3); Hematocrit 40.8 % (39.6-49.0); Lymphocytes % 4.5 % (15.3-44.8); MPV 8.8 fL (7.6-11.3); Monocytes % 5.3 % (3.3-12.3); RBC Red Blood Cell Count 4.38 M/uL (4.33-5.43)
[2018-12-05 06:35] LABS: Albumin 3.7 g/dL (3.4-5.0); Bilirubin Total 1.2 mg/dL (0.2-1.0); Potassium 4.1 mmol/L (3.5-5.1); Protein, Total 7.2 g/dL (6.4-8.2)
[2018-12-05 07:54] LABS: Platelet Estimate INCR
[2018-12-05 07:55] LABS: Blood Morphology Comment NOT SEEN (NOT SEEN)
[2018-12-05] MEDS: AZITHROMYCIN 250 MG TAB PO SCH (08:55)
[2018-12-05] MEDS: predniSONE 20 MG TAB PO SCH (08:55)
[2018-12-05] MEDS: DULERA 200/5 (MOMETASONE/FORMOTEROL) INHALER IH SCH (08:55)
--- NOTE | 2018-12-05 10:29 | EKG ---
Test Date: 2018-12-03 Test Time: 20:53:10 [employer] Specialist: RR MEASUREMENT RESULTS: Intervals: Rate: 102 ID: 100 QRSD: 84 QT: 322 QTc: 419 [place]: P: -4 ID: 100 QRS: 75 T: 54 INTERPRETIVE STATEMENTS: Sinus tachycardia with short ID Otherwise normal ECG Compared to ECG 11/18/2018 19:47:29 Short ID interval now present Electronically Signed On 12-04-18 08:09:05 CDT by Andrea Bell
[2018-12-05 14:51] VITALS: O2SAT 98
[2018-12-05 16:02] VITALS: BP 125/69; TEMP 98
--- NOTE | 2018-12-05 16:08 | P.DS ---
Admission Date: 12/04/18 Discharge Date: 12/05/18 Disposition: ROUTINE DISCHARGE Discharge Condition: GOOD Reason for Admission: Shortness of breath Consultations: Pulmonology Procedures: Non - Problems (1) Acute asthma exacerbation Status: Acute Qualifiers: Asthma severity: moderate Asthma persistence: persistent Qualified Code(s ): J45.41 - Moderate persistent asthma with (acute) exacerbation (2) Exposed to tobacco smoke by family members smoking indoors Status: Acute Brief History of Present Illness: Patient is a 48-year-old gentleman who came into the hospital with difficulty breathing. He said he has been having difficulty with his breathing for the last 2.5 years. He had moved in to a new apartment complex-[facility]-about 3 years ago. Since that time he says his respiratory status has gotten worse. He uses albuterol inhalers that he gets from is friends. He states the apartment has had mold in numerous other complexes. He stated that they did find mold in his closet. He has also used a nebulizer that he received from 1 of his friends children. He is not really sure what caused his difficulty with his breathing. He never really smoked although he has lived around people who smoke. He denies any cardiac issues. He walks his significant other to work every evening which is about a mile and a half away. He has to stop at her work can't catch his breath. He has gone on through 12 inhalers over the last 6 months. Once again these were obtained from friends as he has never gone to see a physician regarding his breathing. He denies any history of liver problems. His chest x-ray does indicate emphysematous changes. This could be a COPD exacerbation. Will also check alpha 1 antitrypsin levels. Hospital Course: Overall during the hospital stay patient remained stable Patient was initially admitted to the hospital for dyspnea was a half acute asthma exacerbation. Patient does have an diagnosed asthma which she has never been treated for before. Patient recently had mold exposure in the house which might have exacerbated his asthma. X-ray was concerning for developing pneumonia Patient was started on duonebs, steroids, antibiotics here in the hospital. Patient had marked improvement in his symptoms and thus was discharged home under stable condition. Pulmonology was consulted who recommended the patient be discharged home on maintenance inhaler along with antibiotics along with steroids. Patient was given prescription for all the inhalers and nebulizers along with antibiotics and was discharged home under stable condition. Vital Signs/Physical Exam: Temp Pulse Resp BP Pulse Ox 98 F 104 H 20 125/69 98 12/05/18 12:00 12/05/18 12:00 12/05/18 12:00 12/05/18 12:00 12/05/18 12:00 General: Alert, In no apparent distress HEENT: Atraumatic, PERRLA, EOMI Neck: Supple, JVD not distended Respiratory: Clear to auscultation bilaterally, Normal air movement Cardiovascular: Regular rate/rhythm, Normal S1 S2 Gastrointestinal: Normal bowel sounds, No tenderness Musculoskeletal: No tenderness Integumentary: No rashes Neurological: Normal speech, Normal tone, Normal affect Lymphatics: No axilla or inguinal lymphadenopathy Laboratory Data at Discharge: WBC 26.3 K/uL (4.3-10.9) H* D 12/05/18 05:24 Hgb 14.4 g/dL (13.6-17.9) 12/05/18 05:24 Hct 40.8 % (39.6-49.0) 12/05/18 05:24 Plt Count 402 K/uL (152-406) 12/05/18 05:24 Sodium 138 mmol/L (136-145) 12/05/18 05:24 Potassium 4.1 mmol/L (3.5-5.1) 12/05/18 05:24 BUN 17 mg/dL (7-18) 12/05/18 05:24 Creatinine 0.90 mg/dL (0.55-1.3) 12/05/18 05:24 Glucose 146 mg/dL (74-106) H 12/05/18 05:24 Phosphorus 2.3 mg/dL (2.5-4.9) L 12/04/18 11:04 Magnesium 2.1 mg/dL (1.8-2.4) 12/04/18 11:04 Total Bilirubin 1.2 mg/dL (0.2-1.0) H 12/05/18 05:24 AST 15 U/L (15-37) 12/05/18 05:24 ALT 24 U/L (12-78) 12/05/18 05:24 Alkaline Phosphatase 64 U/L (45-117) 12/05/18 05:24 Home Medications: Albuterol Inhaler [Ventolin Inhaler*] 2 puff IH Q6H PRN #1 hfa.aer.ad 10/23/18 Albuterol Neb [Proventil 0.083% Neb Soln] 2.5 mg IH TIDP PRN #1 amp 12/05/18 Azithromycin [Zithromax] 500 mg PO DAILY #7 tablet 12/05/18 Mometasone/Formoterol [Dulera 200 Mcg/5 Mcg Inhaler] 2 puff IH BID #1 inhaler Prednisone [Sterapred Ds] 10 mg PO BID #30 tab.ds.pk 12/05/18 New Medications: Albuterol Neb [Proventil 0.083% Neb Soln] 2.5 mg IH TIDP PRN #1 amp PRN Reason: Shortness Of Breath Azithromycin [Zithromax] 500 mg PO DAILY #7 tablet Mometasone/Formoterol [Dulera 200 Mcg/5 Mcg Inhaler] 2 puff IH BID #1 inhaler Prednisone [Sterapred Ds] 10 mg PO BID #30 tab.ds.pk Patient Discharge Instructions: Please f.u with PCP and Dr. Monaco in 1 to 2 days post discharge. New medication Diet: Regular Activity: Ad cassie Followup: Jhon Jennings MD [ACTIVE - CAN ADMIT] - 1 Week
== END 2018-12-05 15:04 | disposition home or self-care (01) | DRG 203 ==
LOC: ER 20:29 → ERHOLD 12-04 00:50 → 2ND 12-04 02:09
PROVIDERS: ADMIT Hospitalist; ATTEND Family Medicine
DX: J45.41 Moderate persistent asthma with (acute) exacerbation (principal); Z77.22 Contact with and (suspected) exposure to environmental tobacco smoke (acute) (chronic); Z77.120 Contact with and (suspected) exposure to mold (toxic)
CPT/HCPCS: 36415; 71045; 71250; 80048; 80053; 82103; 82805; 83735; 83880; 84100; 84484; 85025; 93005; 94660; 94760; 99285; J1650; J2920; J7030; J7512; J7606

== ENCOUNTER 2019-08-06 21:43 | Emergency (ER) | payer SELFPAY ==
[2019-08-06] MEDS ORDERED: Levofloxacin500mg IV 500 MG/100 ML BAG IV ONE (22:20)
[2019-08-06] MEDS ORDERED: dexAMETHasone 10 MG/ML VIAL ONE (22:20)
[2019-08-06] MEDS ORDERED: IPRATROPIUM BROM 0.5MG/2.5ML ONE (22:20)
[2019-08-06] MEDS ORDERED: LEVALBUTEROL 1.25 MG/3 ML NEB ONE (22:20)
[2019-08-06 22:29] LABS: Basophils % 0.9 % (0-1.3); Hematocrit 42.8 % (39.6-49.0); Lymphocytes % 20.5 % (15.3-44.8); MPV 9.5 fL (7.6-11.3); RBC Red Blood Cell Count 4.58 M/uL (4.33-5.43)
[2019-08-06 22:30] LABS: Protime INR 1.11
[2019-08-06 22:51] LABS: ALT/SGPT 26 U/L (12-78); AST/SGOT 15 U/L (15-37); Albumin 4.4 g/dL (3.4-5.0); Alkaline Phosphatase 73 U/L (45-117); BUN Blood Urea Nitrogen 11 mg/dL (7-18); Bicarbonate 24 mmol/L (21-32); Bilirubin Direct 0.1 mg/dL (0-0.2); Bilirubin Total 0.6 mg/dL (0.2-1.0); Glucose Level 132 mg/dL (74-106); Magnesium 2.1 mg/dL (1.8-2.4); Potassium 3.5 mmol/L (3.5-5.1); Protein, Total 7.7 g/dL (6.4-8.2); Sodium Level 138 mmol/L (136-145); Troponin (Emerg Dept Use Only) < 0.02 ng/mL (0.0-0.045)
[2019-08-06 22:57] LABS: NT PRO-BNP < 5 pg/mL (<125)
[2019-08-06] MEDS ORDERED: predniSONE 20 MG TAB ONE (23:23)
--- NOTE | 2019-08-06 23:24 | ER ---
Nurse's Notes [facility] Name: Oni Barroso Age: 49 yrs Sex: Male : 1970 Arrival Date: 08/06/2019 Time: 21:47 Bed 25 Private MD: Diagnosis: Dyspnea;Asthma;Chronic obstructive pulmonary disease, unspecified Presentation: 08/06 21:40 Presenting complaint: Patient states: that at 1930 he started having shortness of fc breath, wheezing and nonproductive cough. Pt is out of inhaler. Transition of care: patient was not received from another setting of care. Onset of symptoms was August 06, 2019 at 19:30. Risk Assessment: Do you want to hurt yourself or someone else? Patient reports no desire to harm self or others. Initial Sepsis Screen: Does the patient meet any 2 criteria? RR > 20 per min. HR > 90 bpm. Yes Does the patient have a suspected source of infection? No. Patient's initial sepsis screen is negative. Care prior to arrival: Medication(s) given: Albuterol Neb x 3, Atrovent Neb x 1, SoluMedrol 125 mg ivp IV initiated. 20 GA, in the left antecubital area. 21:40 Method Of Arrival: EMS: [facility] 21:40 Acuity: LASHAUN 3 Triage Assessment: 22:05 Respiratory: Onset: The symptoms/episode began/occurred suddenly, the patient has mild wh shortness of breath. Historical: - Allergies: 21:56 No Known Allergies; fc - Home Meds: 21:56 albuterol sulfate 1.25 mg/3 mL inhalation nebu 3 mL as needed [Active]; albuterol fc sulfate 90 mcg/actuation Inhl HFAA 1 puff every 4-6 hours [Active]; - PMHx: 21:56 Asthma; COPD; fc - PSHx: 21:56 right leg fracture repair; fc - Immunization history:: Last tetanus immunization: up to date Flu vaccine is not up to date. - Social history:: Smoking status: Patient/guardian denies using tobacco, Patient uses alcohol, but reports only rare drinking. Patient/guardian denies using street drugs. - Ebola Screening: : Patient negative for fever greater than or equal to 101.5 degrees Fahrenheit, and additional compatible Ebola Virus Disease symptoms Patient denies exposure to infectious person Patient denies travel to an Ebola-affected area in the 21 days before illness onset. - Family history:: not pertinent. Screenin:40 Abuse screen: Denies threats or abuse. Nutritional screening: No deficits noted. fc Tuberculosis screening: No symptoms or risk factors identified. Fall Risk None identified. Assessment: 22:05 General: Appears distressed, uncomfortable, Behavior is cooperative, appropriate for age, anxious. Pain: Denies pain. Neuro: Level of Consciousness is awake, alert, obeys commands, Oriented to person, place, time, situation, Appropriate for age. Cardiovascular: Heart tones S1 S2 Rhythm is sinus tachycardia. Respiratory: Reports shortness of breath at rest Airway is patent Respiratory effort is even, unlabored, Respiratory pattern is regular, symmetrical, Breath sounds with wheezes. GI: Abdomen is flat, non-distended. : No signs and/or symptoms were reported regarding the genitourinary system. EENT: No signs and/or symptoms were reported regarding the EENT system. Derm: Skin is intact, is healthy with good turgor, Skin is pink, warm \T\ dry. normal. Musculoskeletal: Circulation, motion, and sensation intact. 23:04 Reassessment: Patient appears in no apparent distress at this time. No changes from previously documented assessment. Patient and/or family updated on plan of care and expected duration. Pain level reassessed. Patient is alert, oriented x 3, equal unlabored respirations, skin warm/dry/pink. 08/07 00:06 Reassessment: Patient appears in no apparent distress at this time. No changes from previously documented assessment. Patient and/or family updated on plan of care and expected duration. Pain level reassessed. Patient is alert, oriented x 3, equal unlabored respirations, skin warm/dry/pink. Patient denies pain at this time. Patient states feeling better. Patient states symptoms have improved. Vital Signs: 08/06 21:40 BP 171 / 111; Pulse 123; Resp 24; Temp 97.8(A); Pulse Ox 100% on Nebulizer Mask; Weight fc 79.38 kg (R); Height 5 ft. 10 in. (177.80 cm) (R); Pain 7/10; 23:00 BP 122 / 79; Pulse 104; Resp 18; Pulse Ox 100% on R/A; wh 08/07 00:12 BP 130 / 85; Pulse 104; Resp 18; Pulse Ox 100% on R/A; 08/06 21:40 Body Mass Index 25.11 (79.38 kg, 177.80 cm) ED Course: 08/06 21:40 Arm band placed on Patient placed in an exam room, on a stretcher. 21:40 Patient has correct armband on for positive identification. Bed in low position. Call fc light in reach. Pulse ox on. NIBP on. 21:40 No provider procedures requiring assistance completed. Maintain EMS IV. Dressing fc intact. Good blood return noted. Site clean \T\ dry. Gauge \T\ site: 20 gauge to left a/c. 21:47 Patient arrived in ED. 21:51 Kole Barger MD is Attending Physician. [facility] 21:51 Triage completed. 21:55 Selma Clay is Primary Nurse. 22:34 XRAY Chest (1 view) In Process Unspecified. EDMS 23:23 Jhon Jennings MD is Referral Physician. [facility] 08/07 00:11 IV discontinued, intact, bleeding controlled, No redness/swelling at site. Administered Medications: 08/06 22:25 Drug: Decadron - Dexamethasone 10 mg Route: IVP; Site: left antecubital; 23:32 Follow up: Response: No adverse reaction 22:30 Drug: levofloxacin 500 mg Volume: 100 ml; Route: IVPB; Infused Over: 60 mins; Site: left antecubital; 23:32 Follow up: Response: No adverse reaction; IV Status: Completed infusion 23:31 Drug: Xopenex 3.75 mg Route: Inhalation; 23:31 Drug: AtroVENT Aerosol 0.5 mg Route: Inhalation; 23:34 Follow up: Response: No adverse reaction; Wheezing diminished 23:35 Follow up: Response: No adverse reaction; Wheezing diminished 23:31 Not Given (Duplicate Order): Xopenex 2.5 mg Inhalation once 23:31 Drug: predniSONE 20 mg Route: PO; 23:34 Follow up: Response: No adverse reaction Outcome: 23:24 Discharge ordered by . [facility] 08/07 00:10 Discharged to home ambulatory, with family. Condition: stable Discharge instructions given to patient, family, Instructed on discharge instructions, follow up and referral plans. medication usage, POC Chronic Bronchitis, COPD and Asthma Demonstrated understanding of instructions, follow-up care, medications, POC Prescriptions given X 4. 00:12 Patient left the ED. Signatures: Dispatcher [employer] EDKole Mcintosh MD MD cha Chretien, Felicia RN RN Selma Schmitt Corrections: (The following items were deleted from the chart) 00:09 00:06 Reassessment: Patient appears in no apparent distress at this time. No changes wh from previously documented assessment. Patient and/or family updated on plan of care and expected duration. Pain level reassessed. Patient denies pain at this time. Patient states feeling better. Patient states symptoms have improved. 00:12 1113 23:00 BP 130 / 85; Pulse 104bpm; Resp 18bpm; Pulse Ox 100% RA; [facility]
--- NOTE | 2019-08-06 23:25 | EDPHYS ---
Physician Documentation [facility] Name: Oni Barroso Age: 49 yrs Sex: Male : 1970 Arrival Date: 08/06/2019 Time: 21:47 Bed 25 Private MD: ED Physician Kole Barger HPI: 08/06 23:19 This 49 yrs old Male presents to ER via EMS with complaints of Shortness Of radha Breath. 23:19 The patient has shortness of breath at rest. Onset: The symptoms/episode began/occurred radha 2 day(s) ago. Duration: The symptoms are continuous, and are steadily getting worse. The patient's shortness of breath is aggravated by nothing, is alleviated by nothing. Associated signs and symptoms: The patient has no apparent associated signs or symptoms. Severity of symptoms: At their worst the symptoms were moderate in the emergency department the symptoms have improved moderately. The patient has not experienced similar symptoms in the past. Historical: - Allergies: 21:56 No Known Allergies; fc - Home Meds: 21:56 albuterol sulfate 1.25 mg/3 mL inhalation nebu 3 mL as needed [Active]; albuterol fc sulfate 90 mcg/actuation Inhl HFAA 1 puff every 4-6 hours [Active]; - PMHx: 21:56 Asthma; COPD; fc - PSHx: 21:56 right leg fracture repair; fc - Immunization history:: Last tetanus immunization: up to date Flu vaccine is not up to date. - Social history:: Smoking status: Patient/guardian denies using tobacco, Patient uses alcohol, but reports only rare drinking. Patient/guardian denies using street drugs. - Ebola Screening: : Patient negative for fever greater than or equal to 101.5 degrees Fahrenheit, and additional compatible Ebola Virus Disease symptoms Patient denies exposure to infectious person Patient denies travel to an Ebola-affected area in the 21 days before illness onset. - Family history:: not pertinent. ROS: 23:19 Constitutional: Negative for fever, chills, and weight loss, Eyes: Negative for injury, radha pain, redness, and discharge, ENT: Negative for injury, pain, and discharge, Neck: Negative for injury, pain, and swelling, Cardiovascular: Negative for chest pain, palpitations, and edema, Abdomen/GI: Negative for abdominal pain, nausea, vomiting, diarrhea, and constipation, Back: Negative for injury and pain, : Negative for injury, bleeding, discharge, and swelling, MS/Extremity: Negative for injury and deformity, Skin: Negative for injury, rash, and discoloration, Neuro: Negative for headache, weakness, numbness, tingling, and seizure, Psych: Negative for depression, anxiety, suicide ideation, homicidal ideation, and hallucinations, Allergy/Immunology: Negative for hives, rash, and allergies, Endocrine: Negative for neck swelling, polydipsia, polyuria, polyphagia, and marked weight changes, Hematologic/Lymphatic: Negative for swollen nodes, abnormal bleeding, and unusual bruising. 23:19 Respiratory: Positive for cough, shortness of breath, wheezing, inspiratory, expiratory. Exam: 23:19 Constitutional: This is a well developed, well nourished patient who is awake, alert, radha and in no acute distress. Head/Face: Normocephalic, atraumatic. Eyes: Pupils equal round and reactive to light, extra-ocular motions intact. Lids and lashes normal. Conjunctiva and sclera are non-icteric and not injected. Cornea within normal limits. Periorbital areas with no swelling, redness, or edema. ENT: Nares patent. No nasal discharge, no septal abnormalities noted. Tympanic membranes are normal and external auditory canals are clear. Oropharynx with no redness, swelling, or masses, exudates, or evidence of obstruction, uvula midline. Mucous membranes moist. Neck: Trachea midline, no thyromegaly or masses palpated, and no cervical lymphadenopathy. Supple, full range of motion without nuchal rigidity, or vertebral point tenderness. No Meningismus. Chest/axilla: Normal chest wall appearance and motion. Nontender with no deformity. No lesions are appreciated. Cardiovascular: Regular rate and rhythm with a normal S1 and S2. No gallops, murmurs, or rubs. Normal PMI, no JVD. No pulse deficits. Abdomen/GI: Soft, non-tender, with normal bowel sounds. No distension or tympany. No guarding or rebound. No evidence of tenderness throughout. Back: No spinal tenderness. No costovertebral tenderness. Full range of motion. Male : Normal genitalia with no discharge or lesions. Skin: Warm, dry with normal turgor. Normal color with no rashes, no lesions, and no evidence of cellulitis. MS/ Extremity: Pulses equal, no cyanosis. Neurovascular intact. Full, normal range of motion. Neuro: Awake and alert, GCS 15, oriented to person, place, time, and situation. Cranial nerves II-XII grossly intact. Motor strength 5/5 in all extremities. Sensory grossly intact. Cerebellar exam normal. Normal gait. Psych: Awake, alert, with orientation to person, place and time. Behavior, mood, and affect are within normal limits. 23:19 Respiratory: mild respiratory distress is noted, Respirations: normal, Breath sounds: rhonchi, that are mild, are scattered, are heard in the left posterior upper lobe, right posterior upper lobe, left posterior lower lobe, right posterior middle lobe and right posterior lower lobe, Respiratory rate: 22 23:22 Musculoskeletal/extremity: DVT Exam: no pain, no swelling, no tenderness, negative radha Homans' sign noted on exam, no appreciated bluish discoloration, no erythema, no increased warmth. Vital Signs: 21:40 BP 171 / 111; Pulse 123; Resp 24; Temp 97.8(A); Pulse Ox 100% on Nebulizer Mask; Weight fc 79.38 kg (R); Height 5 ft. 10 in. (177.80 cm) (R); Pain 7/10; 23:00 BP 122 / 79; Pulse 104; Resp 18; Pulse Ox 100% on R/A; wh 08/07 00:12 BP 130 / 85; Pulse 104; Resp 18; Pulse Ox 100% on R/A; 08/06 21:40 Body Mass Index 25.11 (79.38 kg, 177.80 cm) MDM: 08/06 21:51 Patient medically screened. [facility] 23:22 Data reviewed: vital signs, nurses notes, lab test result(s), EKG, radiologic studies, [facility] plain films. 08/06 21:53 Order name: Basic Metabolic Panel; Complete Time: 23:18 [facility] 08/06 21:53 Order name: CBC with Diff; Complete Time: 23:18 [facility] 08/06 21:53 Order name: LFT's; Complete Time: 23:18 [facility] 08/06 21:53 Order name: Magnesium; Complete Time: 23:18 [facility] 08/06 21:53 Order name: NT PRO-BNP; Complete Time: 23:18 [facility] 08/06 21:53 Order name: PT-INR; Complete Time: 23:18 [facility] 08/06 21:53 Order name: Troponin (emerg Dept Use Only); Complete Time: 23:18 [facility] 08/06 21:53 Order name: XRAY Chest (1 view) [facility] 08/06 21:53 Order name: Influenza Screen (a \T\ B); Complete Time: 23:18 [facility] 08/06 21:53 Order name: EKG; Complete Time: 21:54 [facility] 08/06 21:53 Order name: Cardiac monitoring; Complete Time: 22:15 [facility] 08/06 21:53 Order name: EKG - Nurse/Tech; Complete Time: 22:15 [facility] 08/06 21:53 Order name: IV Saline Lock; Complete Time: 22:15 [facility] 08/06 21:53 Order name: Labs collected and sent; Complete Time: 22:15 [facility] 08/06 21:53 Order name: O2 Per Protocol; Complete Time: 22:15 [facility] 08/06 21:53 Order name: O2 Sat Monitoring; Complete Time: 22:15 [facility] Administered Medications: 22:25 Drug: Decadron - Dexamethasone 10 mg Route: IVP; Site: left antecubital; 23:32 Follow up: Response: No adverse reaction 22:30 Drug: levofloxacin 500 mg Volume: 100 ml; Route: IVPB; Infused Over: 60 mins; Site: left antecubital; 23:32 Follow up: Response: No adverse reaction; IV Status: Completed infusion 23:31 Drug: Xopenex 3.75 mg Route: Inhalation; 23:31 Drug: AtroVENT Aerosol 0.5 mg Route: Inhalation; 23:34 Follow up: Response: No adverse reaction; Wheezing diminished wh 23:35 Follow up: Response: No adverse reaction; Wheezing diminished wh 23:31 Not Given (Duplicate Order): Xopenex 2.5 mg Inhalation once wh 23:31 Drug: predniSONE 20 mg Route: PO; 23:34 Follow up: Response: No adverse reaction Disposition: 08/06/19 23:24 Discharged to Home. Impression: Dyspnea, Asthma, Chronic obstructive pulmonary disease, unspecified. - Condition is Stable. - Discharge Instructions: Asthma, Adult, Chronic Bronchitis, How to Use an Inhaler, Chronic Obstructive Pulmonary Disease Exacerbation, Asthma, Adult, [id number], Cough, Adult, [id number]. - Prescriptions for Amoxicillin 500 mg Oral Capsule - take 1 capsule by ORAL route every 8 hours for 10 days; 30 tablet. Albuterol Sulfate 2.5 mg /3 mL (0.083 %) Inhalation Solution for Nebulization - inhale 1 unit by NEBULIZATION route every 8 hours As needed; 1 box. Prednisone 20 mg Oral Tablet - take 2 tablet by ORAL route once daily for 5 days; 10 tablet. Albuterol Sulfate 90 mcg/actuation - inhale 1-2 puff by INHALATION route every 4-6 hours; 1 Inhaler. - Medication Reconciliation Form, Thank You Letter, Antibiotic Education, Prescription Opioid Use form. - Follow up: Private Physician; When: 2 - 3 days; Reason: Recheck today's complaints, Continuance of care, Re-evaluation by your physician. Follow up: Jhon Jennings MD; When: 2 - 3 days; Reason: Recheck today's complaints, Continuance of care, Re-evaluation by your physician. - Problem is new. - Symptoms have improved. Signatures: Dispatcher [employer] EDKole Mcintosh MD MD cha Chretien, Felicia, RN RN Selma Clay Corrections: (The following items were deleted from the chart) 08/07 00:12 08/06 23:24 08/06/2019 23:24 Discharged to Home. Impression: Dyspnea; Asthma; Chronic wh obstructive pulmonary disease, unspecified. Condition is Stable. Forms are Medication Reconciliation Form, Thank You Letter, Antibiotic Education, Prescription Opioid Use. Follow up: Private Physician; When: 2 - 3 days; Reason: Recheck today's complaints, Continuance of care, Re-evaluation by your physician. Follow up: Jhon Jennings; When: 2 - 3 days; Reason: Recheck today's complaints, Continuance of care, Re-evaluation by your physician. Problem is new. Symptoms have improved. radha
--- NOTE | 2019-08-07 08:08 | RAD REPORT ---
EXAM DESCRIPTION: Neyda Single View08/06/2019 10:36 pm CLINICAL HISTORY: Cough COMPARISON: November 2018 FINDINGS: The lungs appear clear of acute infiltrate. The heart is normal size IMPRESSION: No acute abnormalities displayed
--- NOTE | 2019-08-07 08:17 | EKG ---
Test Date: 2019-08-06 Test Time: 22:03:59 [employer]'S Education Instructor: KAROL MEASUREMENT RESULTS: Intervals: Rate: 103 MD: 122 QRSD: 84 QT: 320 QTc: 419 [place]: P: 37 MD: 122 QRS: 75 T: 65 INTERPRETIVE STATEMENTS: Sinus tachycardia Otherwise normal ECG Compared to ECG 12/03/2018 20:53:10 Short MD interval no longer present Electronically Signed On 08-07-19 08:15:50 HEAD ORTHOPEDIC TEAM PHYSICIAN by Ben Medina
[2019-08-07 10:01] VITALS: O2SAT 100
[2019-08-07 10:03] VITALS: BP 130/85
== END 2019-08-07 00:12 | disposition home or self-care (01) ==
LOC: ER 21:43
DX: J44.1 Chronic obstructive pulmonary disease with (acute) exacerbation (principal); J45.909 Unspecified asthma, uncomplicated
CPT/HCPCS: 36415; 71045; 80048; 80076; 83735; 83880; 84484; 85025; 85610; 87804; 93005; 96365; 96375; 99285; J1100; J7512

== ENCOUNTER 2019-11-27 02:52 | Emergency (ER) | payer SELFPAY ==
[2019-11-27] MEDS ORDERED: LEVALBUTEROL 1.25 MG/3 ML NEB ONE (03:08)
[2019-11-27 03:19] LABS: Absolute Lymphocytes (CBC) 2.2 K/uL (0.7-4.9); Basophils % 0.4 % (0-1.3); Hematocrit 45.4 % (39.6-49.0); Lymphocytes % 10.6 % (15.3-44.8); MPV 9.2 fL (7.6-11.3); RBC Red Blood Cell Count 4.84 M/uL (4.33-5.43)
[2019-11-27 03:23] LABS: Protime INR 1.1
[2019-11-27 03:33] LABS: ALT/SGPT 24 U/L (12-78); AST/SGOT 14 U/L (15-37); Albumin 4.6 g/dL (3.4-5.0); Alkaline Phosphatase 78 U/L (45-117); BUN Blood Urea Nitrogen 13 mg/dL (7-18); Bicarbonate 23 mmol/L (21-32); Bilirubin Direct 0.3 mg/dL (0-0.2); Bilirubin Total 1.5 mg/dL (0.2-1.0); Creatine Phosphokinase 198 U/L (39-308); Glucose Level 155 mg/dL (74-106); Lipase 66 U/L (73-393); Magnesium 2.3 mg/dL (1.8-2.4); NT PRO-BNP 8 pg/mL (<125); Potassium 3.4 mmol/L (3.5-5.1); Protein, Total 8.3 g/dL (6.4-8.2); Sodium Level 139 mmol/L (136-145); Troponin (Emerg Dept Use Only) < 0.02 ng/mL (0.0-0.045)
[2019-11-27] MEDS ORDERED: ALBUTEROL 2.5 MG/3 ML NEB SOL ONE (03:51)
[2019-11-27] MEDS ORDERED: NA CHLORIDE 0.9% 1,000 ML ONE (03:51)
[2019-11-27] MEDS ORDERED: KETOROLAC 30 MG/ML INJ ONE (03:51)
[2019-11-27 04:41] LABS: Blood Morphology Comment NOT SEEN (NOT SEEN); Platelet Estimate ADEQ
--- NOTE | 2019-11-27 04:57 | EDPHYS ---
Physician Documentation [facility] Name: Oni Barroso Age: 49 yrs Sex: Male : 1970 Arrival Date: 11/27/2019 Time: 02:55 Bed 6 Private MD: ED Physician Dov Dominique HPI: 11/26 04:03 This 49 yrs old Male presents to ER via EMS with complaints of SOB. tw4 04:03 The patient has shortness of breath at rest. Onset: The symptoms/episode began/occurred tw4 3 hour(s) ago. Duration: The symptoms are continuous, and are unchanged since they started. The patient's shortness of breath has no apparent modifying factors. Associated signs and symptoms: The patient has no apparent associated signs or symptoms. Severity of symptoms: At their worst the symptoms were moderate in the emergency department the symptoms are unchanged. The patient has not experienced similar symptoms in the past. Historical: - Allergies: 03:07 No Known Allergies; rv - PMHx: 03:07 Asthma; COPD; rv - PSHx: 03:07 None; rv - Immunization history:: Adult Immunizations up to date. - Social history:: Smoking status: Patient denies any tobacco usage or history of. ROS: 04:03 Constitutional: Negative for fever, chills, and weight loss, Eyes: Negative for injury, tw4 pain, redness, and discharge, Cardiovascular: Negative for chest pain, palpitations, and edema, Abdomen/GI: Negative for abdominal pain, nausea, vomiting, diarrhea, and constipation, Back: Negative for injury and pain, MS/Extremity: Negative for injury and deformity, Skin: Negative for injury, rash, and discoloration. Exam: 04:03 Constitutional: This is a well developed, well nourished patient who is awake, alert, tw4 and in no acute distress. Head/Face: Normocephalic, atraumatic. Chest/axilla: Normal chest wall appearance and motion. Nontender with no deformity. No lesions are appreciated. Cardiovascular: Regular rate and rhythm with a normal S1 and S2. No gallops, murmurs, or rubs. Normal PMI, no JVD. No pulse deficits. Abdomen/GI: Soft, non-tender, with normal bowel sounds. No distension or tympany. No guarding or rebound. No evidence of tenderness throughout. Back: No spinal tenderness. No costovertebral tenderness. Full range of motion. MS/ Extremity: Pulses equal, no cyanosis. Neurovascular intact. Full, normal range of motion. Neuro: Awake and alert, GCS 15, oriented to person, place, time, and situation. Cranial nerves II-XII grossly intact. Motor strength 5/5 in all extremities. Sensory grossly intact. Cerebellar exam normal. Normal gait. 04:03 Respiratory: mild respiratory distress is noted, Respirations: tachypnea, Breath sounds: wheezing: inspiratory that is moderate, is mildly improved. Vital Signs: 03:08 BP 124 / 92; Pulse 130; Resp 21; Temp 98.5; Pulse Ox 99% on 2 lpm NC; Weight 79.38 kg; rv Height 5 ft. 10 in. (177.80 cm); 03:59 BP 108 / 86; Pulse 125; Resp 18; Pulse Ox 98% on Nebulizer Mask; rv 04:30 BP 147 / 75; Pulse 119; Resp 17; Temp 98; Pulse Ox 96% on R/A; rv 05:00 BP 128 / 83; Pulse 120; Resp 14; Pulse Ox 98% on R/A; rv 05:28 Pain 2/10; rv 03:08 Body Mass Index 25.11 (79.38 kg, 177.80 cm) rv MDM: 03:02 Patient medically screened. tw4 06:25 Differential diagnosis: asthma. Antibiotic administration: Not indicated. Data tw4 reviewed: vital signs, nurses notes. Data interpreted: Pulse oximetry: Interpretation: normal. Counseling: I had a detailed discussion with the patient and/or guardian regarding: the historical points, exam findings, and any diagnostic results supporting the discharge/admit diagnosis. Special discussion: I discussed with the patient/guardian in detail that at this point there is no indication for admission to the hospital. It is understood, however, that if the symptoms persist or worsen the patient needs to return immediately for re-evaluation. 11/26 03:01 Order name: Blood Culture Adult (2) tw4 11/26 03:01 Order name: BMP 4 11/26 03:01 Order name: CBC with Diff 11/26 03:01 Order name: Ckmb 4 11/26 03:01 Order name: CPK 11/26 03:01 Order name: Hepatic Function tw4 11/26 03:01 Order name: Lipase tw4 11/26 03:01 Order name: Magnesium tw4 11/26 03:01 Order name: NT PRO-BNP tw4 11/26 03:01 Order name: PT-INR tw4 11/26 03:01 Order name: Ptt, Activated tw4 11/26 03:01 Order name: Troponin (emerg Dept Use Only) tw4 11/26 03:02 Order name: Blood Culture EDMS 11/26 03:02 Order name: Basic Metabolic Panel; Complete Time: 03:45 EDMS 11/26 03:45 Interpretation: GFR 68; GLUC 155; K 3.4. tw4 11/26 03:01 Order name: XRAY CXR (1 view) tw4 11/26 03:01 Order name: EKG; Complete Time: 03:03 4 11/26 03:01 Order name: Cardiac monitoring; Complete Time: 03:03 4 11/26 03:01 Order name: EKG - Nurse/Tech; Complete Time: 03:03 4 11/26 03:01 Order name: IV Saline Lock; Complete Time: 03:03 4 11/26 03:01 Order name: Labs collected and sent; Complete Time: 03:03 4 11/26 03:01 Order name: O2 Per Protocol; Complete Time: 03:03 tw4 11/26 03:01 Order name: O2 Sat Monitoring; Complete Time: 03:07 4 11/26 03:02 Order name: CBC with Automated Diff EDMS 11/26 03:32 Order name: Manual Differential EDMS EC:24 Rate is 132 beats/min. Rhythm is regular, Sinus tachycardia. QRS Ubly is Normal. AK tw4 interval is normal. QRS interval is normal. QT interval is normal. No Q waves. T waves are Normal. No ST changes noted. Clinical impression: Sinus tachycardia. Interpreted by me. Reviewed by me. Administered Medications: 03:03 CANCELLED (TACHYCARDIA): DuoNeb (3:1) (2.5 mg - 0.5 mg) 3 ml Nebulizer once rv 03:06 Drug: Xopenex (3) 1.25 mg Route: Inhalation; rv 05:28 Follow up: Response: No adverse reaction; Marked relief of symptoms rv 03:51 Drug: Albuterol 1.25 mg Route: Inhalation; rv 05:28 Follow up: Response: No adverse reaction; Marked relief of symptoms rv 03:51 Drug: TORadol 30 mg Route: IVP; Site: left antecubital; rv 05:28 Follow up: Pain 2/10 Adult; Response: No adverse reaction; Marked relief of symptoms; rv Pain is decreased 03:51 Drug: NS 0.9% 1000 ml Route: IV; Rate: 1 bolus; Site: left antecubital; rv 05:28 Follow up: IV Status: Completed infusion; IV Intake: 1000ml rv Disposition: 11/27/19 04:56 Discharged to Home. Impression: Acute bronchospasm. - Condition is Stable. - Discharge Instructions: Bronchospasm, Adult, How to Use an Inhaler, Asthma, Adult, [id number]. - Prescriptions for Xopenex 0.63 mg/3 mL Inhalation Solution for Nebulization - inhale 1 unit by NEBULIZATION route every 8 hours As needed; 1 box. Tessalon Perles 100 mg Oral Capsule - take 1 capsule by ORAL route every 8 hours As needed; 15 capsule. Albuterol Sulfate 2.5 mg /3 mL (0.083 %) Inhalation Solution for Nebulization - inhale 1 unit by NEBULIZATION route every 8 hours As needed; 1 box. Medrol (Melvin) 4 mg Oral Tablets, Dose Pack - take 1 tablet by ORAL route as directed - follow package instructions; 1 packet. Albuterol Sulfate 90 mcg/actuation - inhale 1-2 puff by INHALATION route every 4-6 hours; 1 Inhaler. - Medication Reconciliation Form, Thank You Letter, Antibiotic Education, Prescription Opioid Use form. - Follow up: Private Physician; When: Upon discharge from the Emergency Department; Reason: Recheck today's complaints, Continuance of care, Re-evaluation by your physician. - Problem is new. - Symptoms have improved. Signatures: Dispatcher [employer] EDDov Beard MD MD tw4 Ronan Carvajal RN RN rv Corrections: (The following items were deleted from the chart) 03:03 02:58 DuoNeb (3:1) (2.5 mg - 0.5 mg) 3 ml Nebulizer once ordered. tw4 rv 05:29 04:56 11/27/2019 04:56 Discharged to Home. Impression: Acute bronchospasm. Condition is rv Stable. Forms are Medication Reconciliation Form, Thank You Letter, Antibiotic Education, Prescription Opioid Use. Follow up: Private Physician; When: Upon discharge from the Emergency Department; Reason: Recheck today's complaints, Continuance of care, Re-evaluation by your physician. Problem is new. Symptoms have improved. tw4
--- NOTE | 2019-11-27 04:57 | ER ---
Nurse's Notes [facility] Name: Oni Barroso Age: 49 yrs Sex: Male : 1970 Arrival Date: 11/27/2019 Time: 02:55 Bed 6 Private MD: Diagnosis: Acute bronchospasm Presentation: 11/26 02:59 Chief complaint: EMS states: PATIENT CALLED IN FOR SOB. WITH HISTORY OF COPD. HE WAS rv TACHYPNEIC AND TACHYCARDIC AT SCENE, EXHAUSTED AFTER WALKING A FEW STEPS TO THE STRETCHER. WHEEZING ON BOTH LUNGS. WE GAVE HIM ALBUTEROL AND ATROVENT 1:1, AND SOLU-MEDROL 125MG EN ROUTE. INITIALLY AT 8LPM OXYGEN, SATURATION MAINTAINED AT 98% ON 2 LPM VIA NC. 02:59 Method Of Arrival: EMS: [facility] rv 03:08 Coronavirus screen: The patient has NOT traveled to a country currently being monitored rv by the [facility] within the last 14 days. Proceed with normal triage procedures. The patient has NOT had contact with any known and/or suspected case of coronavirus. Proceed with normal triage procedures. Ebola Screen: No symptoms or risks identified at this time. Initial Sepsis Screen: Does the patient meet any 2 criteria? No. Patient's initial sepsis screen is negative. Does the patient have a suspected source of infection? No. Patient's initial sepsis screen is negative. Risk Assessment: Do you want to hurt yourself or someone else? Patient reports no desire to harm self or others. 03:08 Acuity: LASHAUN 2 rv 03:09 Onset of symptoms was November 26, 2019 at 21:00. rv Historical: - Allergies: 03:07 No Known Allergies; rv - PMHx: 03:07 Asthma; COPD; rv - PSHx: 03:07 None; rv - Immunization history:: Adult Immunizations up to date. - Social history:: Smoking status: Patient denies any tobacco usage or history of. Screenin:08 Abuse screen: Denies threats or abuse. Denies injuries from another. Nutritional rv screening: No deficits noted. Tuberculosis screening: No symptoms or risk factors identified. Fall Risk None identified. Assessment: 03:07 General: Appears distressed, Behavior is calm, cooperative. Pain: Complains of pain in rv chest. Neuro: Level of Consciousness is awake, alert, obeys commands, Oriented to person, place, time, situation. Cardiovascular: Patient's skin is warm and dry. Rhythm is sinus tachycardia. Respiratory: Airway is patent Respiratory effort is labored, Breath sounds with wheezes bilaterally. Derm: Skin is intact. 03:57 Reassessment: PATIENT IS STILL TACHYPNEIC AND TACHYCARDIC. WHEEZING STILL HEARD rv BILATERALLY BUT HAS IMPROVED COMPARED TO BEFORE. CHEST PAIN REASSESSED. REFERRED TO DR FORMAN, GIVEN PAIN MEDICATION AND ANOTHER DOSE OF BREATHING TREATMENT. 05:26 Reassessment: Patient appears in no apparent distress at this time. Patient and/or rv family updated on plan of care and expected duration. Pain level reassessed. Patient is alert, oriented x 3, equal unlabored respirations, skin warm/dry/pink. FEELING BETTER. DENIES ANY PAIN. WHEEZING IS DIMINISHED ON BOTH LUNG STONE. EXPLAINED THE TEST RESULTS. UNDERSTOOD AND AGREED ON THE PLAN OF CARE. DISCHARGED AMBULATORY WITH GIRLFRIEND. Vital Signs: 03:08 BP 124 / 92; Pulse 130; Resp 21; Temp 98.5; Pulse Ox 99% on 2 lpm NC; Weight 79.38 kg; rv Height 5 ft. 10 in. (177.80 cm); 03:59 BP 108 / 86; Pulse 125; Resp 18; Pulse Ox 98% on Nebulizer Mask; rv 04:30 BP 147 / 75; Pulse 119; Resp 17; Temp 98; Pulse Ox 96% on R/A; rv 05:00 BP 128 / 83; Pulse 120; Resp 14; Pulse Ox 98% on R/A; rv 05:28 Pain 2/10; rv 03:08 Body Mass Index 25.11 (79.38 kg, 177.80 cm) rv Vitals: 04:00 Cardiac Rhythm Assessment Sinus tach. rv ED Course: 02:55 Patient arrived in ED. aa1 02:58 Ronan Carvajal, REBECCA is Primary Nurse. rv 03:01 Dov Forman MD is Attending Physician. tw4 03:06 Maintain EMS IV. Dressing intact. Good blood return noted. Site clean \T\ dry. Gauge \T\ rv site: 20 G LEFT AC. 03:07 Arm band placed on Patient placed Patient notified of wait time. rv 03:09 Triage completed. rv 03:09 Patient has correct armband on for positive identification. front desk monitor on. Pulse rv ox on. NIBP on. 03:17 XRAY CXR (1 view) In Process Unspecified. EDMS 05:29 No provider procedures requiring assistance completed. IV discontinued, intact, rv bleeding controlled, No redness/swelling at site. Pressure dressing applied. Administered Medications: 03:03 CANCELLED (TACHYCARDIA): DuoNeb (3:1) (2.5 mg - 0.5 mg) 3 ml Nebulizer once rv 03:06 Drug: Xopenex (3) 1.25 mg Route: Inhalation; rv 05:28 Follow up: Response: No adverse reaction; Marked relief of symptoms rv 03:51 Drug: Albuterol 1.25 mg Route: Inhalation; rv 05:28 Follow up: Response: No adverse reaction; Marked relief of symptoms rv 03:51 Drug: TORadol 30 mg Route: IVP; Site: left antecubital; rv 05:28 Follow up: Pain 2/10 Adult; Response: No adverse reaction; Marked relief of symptoms; rv Pain is decreased 03:51 Drug: NS 0.9% 1000 ml Route: IV; Rate: 1 bolus; Site: left antecubital; rv 05:28 Follow up: IV Status: Completed infusion; IV Intake: 1000ml rv Intake: 05:28 IV: 1000ml; Total: 1000ml. rv Outcome: 04:56 Discharge ordered by . twAjay 05:29 Discharged to home ambulatory, with friend. rv 05:29 Condition: improved 05:29 Discharge instructions given to patient, Instructed on discharge instructions, follow up and referral plans. medication usage, Demonstrated understanding of instructions, follow-up care, medications, Prescriptions given X 4. 05:29 Patient left the ED. rv Signatures: Dispatcher [employer] EDMS Nellie Barnes, RN RN aa1 Dov Forman MD MD tw4 Ronan Carvajal RN RN rv
[2019-11-27 05:38] VITALS: TEMP 98
[2019-11-27 05:39] VITALS: BP 128/83; O2SAT 98
--- NOTE | 2019-11-27 08:18 | RAD REPORT ---
EXAM DESCRIPTION: Neyda Single View11/27/2019 3:17 am CLINICAL HISTORY: Shortness of breath COMPARISON: July 2019 FINDINGS: The lungs are hyperaerated The lungs appear clear of acute infiltrate. The heart is normal size IMPRESSION: No acute abnormalities displayed
--- NOTE | 2019-11-27 11:37 | EKG ---
Test Date: 2019-11-27 Test Time: 02:54:41 Accounts Receivable Representative: RV MEASUREMENT RESULTS: Intervals: Rate: 132 RI: 134 QRSD: 78 QT: 300 QTc: 444 [place]: P: 67 RI: 134 QRS: 60 T: 41 INTERPRETIVE STATEMENTS: Sinus tachycardia Otherwise normal ECG Compared to ECG 08/06/2019 22:03:59 No significant changes Electronically Signed On 11-27-19 11:36:15 MANAGER RESPIRATORY CARE by Ben Medina
== END 2019-11-27 05:29 | disposition home or self-care (01) ==
LOC: ER 02:52
DX: J98.01 Acute bronchospasm (principal)
CPT/HCPCS: 36415; 71045; 80048; 80076; 82550; 82553; 83690; 83735; 83880; 84484; 85025; 85610; 85730; 87040; 93005; 96361; 96374; 99285; J7030

== ENCOUNTER 2021-06-19 12:07 | Emergency (ER) | payer SELFPAY ==
[2021-06-19] MEDS ORDERED: METHYLPREDNISOLONE 125 MG INJ ONE (12:55)
[2021-06-19] MEDS ORDERED: LEVALBUTEROL 1.25 MG/3 ML NEB ONE ×2 (12:56→14:25)
[2021-06-19 13:03] LABS: Absolute Lymphocytes (CBC) 1.5 K/uL (0.7-4.9); Basophils % 0.4 % (0-1.3); Hematocrit 47.1 % (39.6-49.0); Lymphocytes % 8.6 % (15.3-44.8); MPV 8.7 fL (7.6-11.3); RBC Red Blood Cell Count 5.05 M/uL (4.33-5.43)
[2021-06-19 13:04] LABS: Protime INR 1.13
[2021-06-19 13:26] LABS: ALT/SGPT 30 U/L (12-78); AST/SGOT 12 U/L (15-37); Albumin 4.5 g/dL (3.4-5.0); Alkaline Phosphatase 90 U/L (45-117); BUN Blood Urea Nitrogen 7 mg/dL (7-18); Bicarbonate 27 mmol/L (21-32); Bilirubin Direct 0.3 mg/dL (0-0.2); Bilirubin Total 1.6 mg/dL (0.2-1.0); Glucose Level 132 mg/dL (74-106); Magnesium 2.2 mg/dL (1.8-2.4); NT PRO-BNP 13 pg/mL (<125); Potassium 3.5 mmol/L (3.5-5.1); Protein, Total 8.2 g/dL (6.4-8.2); Sodium Level 139 mmol/L (136-145); Troponin (Emerg Dept Use Only) < 0.02 ng/mL (0.0-0.045)
[2021-06-19] MEDS ORDERED: NA CHLORIDE 0.9% 1,000 ML ONE (13:30)
[2021-06-19 13:49] LABS: SARS-COV-2 RT PCR NEGATIVE (NEGATIVE)
--- NOTE | 2021-06-19 14:09 | RAD REPORT ---
EXAM DESCRIPTION: RAD - Chest Single View - 06/19/2021 1:02 pm CLINICAL HISTORY: SOB COMPARISON: Portable November 27, 2019 TECHNIQUE: AP portable chest image was obtained 06/19/2021 1:02 pm . FINDINGS: Lungs are clear. Interstitial pattern matches comparison. Heart and vasculature are normal . No measurable pleural effusion and no pneumothorax. No acute bony abnormality seen. No acute aortic findings suspected. IMPRESSION: No acute cardiopulmonary process. No significant change from comparison study.
--- NOTE | 2021-06-19 15:24 | EDPHYS ---
Physician Documentation [facility] Name: Oni Barroso Age: 51 yrs Sex: Male : 1970 Arrival Date: 06/19/2021 Time: 12:11 Bed 20 Private MD: ED Physician Livan Lund HPI: 06/19 12:49 This 51 yrs old Male presents to ER via EMS with complaints of SOB. pm1 12:49 The patient has shortness of breath at rest. Onset: The symptoms/episode began/occurred pm1 4 day(s) ago. Duration: The symptoms are continuous. The patient's shortness of breath is aggravated by exertion, Lack of breathing treatment, is alleviated by nebulizer treatment, In route by EMS. Associated signs and symptoms: Pertinent positives: chest pain, Pertinent negatives: fever. Severity of symptoms: in the emergency department the symptoms have improved mildly, By EMS treatment. The patient has experienced similar episodes in the past, several times. The patient has not recently seen a physician. Historical: - Home Meds: 12:13 albuterol sulfate 1.25 mg/3 mL Inhl nebu 3 mL as needed [Active]; albuterol sulfate 90 tr6 mcg/actuation Inhl HFAA 1 puff every 4-6 hours [Active]; - PMHx: 12:13 Asthma; COPD; tr6 - Immunization history:: Adult Immunizations up to date, Client reports having NOT received the Covid vaccine. - Social history:: Smoking status: Patient denies any tobacco usage or history of. Patient uses street drugs, marijuana. ROS: 12:49 Constitutional: Negative for fever, chills, and weight loss. pm1 12:49 Abdomen/GI: Negative for abdominal pain, nausea, vomiting, diarrhea, and constipation, Back: Negative for injury and pain, MS/Extremity: Negative for injury and deformity, Skin: Negative for injury, rash, and discoloration, Neuro: Negative for headache, weakness, numbness, tingling, and seizure. 12:49 Cardiovascular: Positive for chest pain, Negative for edema, palpitations. 12:49 Respiratory: Positive for shortness of breath, wheezing, Negative for cough. 12:49 All other systems are negative. Exam: 12:49 Constitutional: This is a well developed, well nourished patient who is awake, alert, pm1 and in no acute distress. Head/Face: Normocephalic, atraumatic. 12:49 Skin: Warm, dry with normal turgor. Normal color with no rashes, no lesions, and no evidence of cellulitis. MS/ Extremity: Pulses equal, no cyanosis. Neurovascular intact. Full, normal range of motion. 12:49 Cardiovascular: Exam negative for acute changes, Rate: tachycardic, Rhythm: regular, Pulses: no pulse deficits are appreciated. 12:49 Respiratory: the patient does not display signs of respiratory distress, Breath sounds: wheezing: expiratory is heard diffusely. 12:49 Abdomen/GI: Inspection: abdomen appears normal, Palpation: abdomen is soft and non-tender. 12:49 Neuro: Exam negative for acute changes, Orientation: is normal, Mentation: is normal, Motor: is normal, moves all fours. Vital Signs: 12:19 BP 166 / 150; Pulse 130; Resp 20; Temp 98.6(O); Pulse Ox 98% on R/A; Weight 77.11 kg; tr6 Height 5 ft. 10 in. (177.80 cm); Pain 0/10; 12:30 BP 126 / 99; Pulse 130; Resp 15; Pulse Ox 98% on R/A; tr6 14:45 BP 139 / 87; Pulse 120; Resp 15; Pulse Ox 97% on R/A; tr6 15:30 BP 141 / 86; Pulse 119; Resp 18; Pulse Ox 96% on R/A; tr6 12:19 Body Mass Index 24.39 (77.11 kg, 177.80 cm) tr6 MDM: 12:20 Patient medically screened. pm1 15:22 Data reviewed: vital signs. Data interpreted: Pulse oximetry: on room air is 97 %. pm1 Interpretation: normal. Counseling: I had a detailed discussion with the patient and/or guardian regarding: the historical points, exam findings, and any diagnostic results supporting the discharge/admit diagnosis, lab results, radiology results, the need for outpatient follow up, a family practitioner, a scarf gluer, to return to the emergency department if symptoms worsen or persist or if there are any questions or concerns that arise at home. 06/19 12:18 Order name: Basic Metabolic Panel; Complete Time: 13:26 pm1 06/19 12:18 Order name: CBC with Diff; Complete Time: 13:26 pm1 06/19 12:18 Order name: LFT's; Complete Time: 13:26 pm06/19 12:18 Order name: Magnesium; Complete Time: 13:26 pm06/19 12:18 Order name: NT PRO-BNP; Complete Time: 13:26 pm06/19 12:18 Order name: PT-INR; Complete Time: 13:26 pm06/19 12:18 Order name: Troponin (emerg Dept Use Only); Complete Time: 13:26 pm06/19 12:18 Order name: XRAY Chest (1 view); Complete Time: 14:10 pm1 06/19 13:49 Order name: COVID-19/FLU A+B; Complete Time: 14:00 EDMS 06/19 12:18 Order name: EKG; Complete Time: 12:19 pm1 06/19 12:18 Order name: Cardiac monitoring; Complete Time: 12:22 pm1 06/19 12:18 Order name: EKG - Nurse/Tech; Complete Time: 13:03 pm06/19 12:18 Order name: IV Saline Lock; Complete Time: 12:50 pm1 06/19 12:18 Order name: Labs collected and sent; Complete Time: 12:50 pm06/19 12:18 Order name: O2 Per Protocol; Complete Time: 12:22 pm06/19 12:18 Order name: O2 Sat Monitoring; Complete Time: 12:22 pm1 Administered Medications: 12:35 Drug: Xopenex (levalbuterol) 1.25 mg Route: Inhalation; tr6 12:35 Drug: Xopenex (levalbuterol) 1.25 mg Route: Inhalation; tr6 12:50 Drug: SOLU-Medrol (methylPrednisoLONE) 125 mg Route: IVP; Site: right antecubital; tr6 13:05 Follow up: Response: No adverse reaction tr6 13:07 Drug: NS 0.9% 1000 ml Route: IV; Rate: 1000 ml; Site: right antecubital; tr6 16:06 Follow up: Response: No adverse reaction; IV Status: Completed infusion; IV Intake: tr6 1000ml 14:04 Drug: Xopenex (levalbuterol) 1.25 mg Route: Inhalation; tr6 15:45 Drug: Rocephin (cefTRIAXone) 1 grams Route: IV; Rate: calculated rate; Site: right tr6 antecubital; 16:06 Follow up: Response: No adverse reaction; IV Status: Completed infusion; IV Intake: tr6 100ml Disposition Summary: 06/19/21 15:23 Discharge Ordered Location: Home pm1 Problem: new pm1 Symptoms: have improved pm1 Condition: Stable pm1 Diagnosis - COPD/ Chronic obstructive pulmonary disease with (acute) exacerbation pm1 Followup: pm1 - With: Emergency Department - When: As needed - Reason: Worsening of condition Followup: pm1 - With: Private Physician - When: 2 - 3 days - Reason: Recheck today's complaints, Continuance of care, Re-evaluation by your physician Discharge Instructions: - Discharge Summary Sheet pm1 - Chronic Obstructive Pulmonary Disease Exacerbation pm1 Forms: - Medication Reconciliation Form pm1 - Thank You Letter pm1 - Antibiotic Education pm1 - Prescription Opioid Use pm1 Prescriptions: - Ventolin HFA 90 mcg/actuation Inhalation HFA aerosol inhaler - inhale 2 puff by INHALATION route every 4-6 hours As needed; 1 Inhaler; pm1 Refills: 0, Product Selection Permitted - Prednisone 20 mg Oral Tablet - take 3 tablets by ORAL route once daily for 5 days; 15 tablet; Refills: 0, pm1 Product Selection Permitted - Albuterol Sulfate 2.5 mg /3 mL (0.083 %) Inhalation Solution for Nebulization - inhale 1 unit by NEBULIZATION route every 8 hours As needed; 1 box; Refills: 0, pm1 Product Selection Permitted - Zithromax Z-Melvin 250 mg Oral Tablet - take 1 tablet by ORAL route as directed for 5 days Day 1 - take two (2) tablets pm1 one time. Day 2, 3, 4 , 5 take one (1) tablet once daily.; 6 tablet; Refills: 0, Product Selection Permitted Addendum: 06/24/2021 04:37 Co-signature as Attending Physician, Livan Lund MD PA/AIRPLANE FLIGHT ATTENDANT SUPERVISOR's history reviewed, m a2 patient interviewed, and examined. I agree with assessment and care plan and confirm the diagnosis (es) above. Signatures: Dispatcher [employer] EDValeriy Harrell, AIRPLANE FLIGHT ATTENDANT SUPERVISOR AIRPLANE FLIGHT ATTENDANT SUPERVISOR pm1 Livan Lund MD MD ma2 Antonia Chavez RN RN tr6 Corrections: (The following items were deleted from the chart) 06/19 13: 12: CORONAVIRUS+MR.LAB.COSME ordered. EDMS EDMS : 12:22 Influenza Screen (A \T\ B)+BA.SONDRA.COSME ordered. EDMS EDMS
--- NOTE | 2021-06-19 15:24 | ER ---
Nurse's Notes [facility] Name: Oni Barroso Age: 51 yrs Sex: Male : 1970 Arrival Date: 06/19/2021 Time: 12:11 Bed 20 Private MD: Diagnosis: COPD/ Chronic obstructive pulmonary disease with (acute) exacerbation Presentation: 06/19 12:11 Chief complaint: EMS states: SOB and chest tightness beginning about 4 days ago while tr6 pt was moving boxes up and down the stairs. pt took breathing treatments that he had at home, but they were and had no relief. pt received 1 neb en route with some relief. pt able to speak in full sentences easily and states symptoms have some what improved since treatment. Coronavirus screen: At this time, unable to obtain information related to travel outside the [place] Ebola Screen: No symptoms or risks identified at this time. Initial Sepsis Screen: Does the patient meet any 2 criteria? No. Patient's initial sepsis screen is negative. Does the patient have a suspected source of infection? No. Patient's initial sepsis screen is negative. Risk Assessment: Do you want to hurt yourself or someone else? Patient reports no desire to harm self or others. Onset of symptoms was June 15, 2021. 12:11 Method Of Arrival: EMS: [facility] tr6 12:19 Acuity: LASHAUN 2 tr6 Triage Assessment: 12:19 General: Appears in no apparent distress. comfortable, Behavior is calm, cooperative, tr6 appropriate for age. Pain: Denies pain. EENT: No deficits noted. Neuro: No deficits noted. Cardiovascular: Rhythm is sinus tachycardia. Respiratory: Airway is patent Trachea midline Respiratory effort is with retractions, Respiratory pattern is regular, tachypnea Breath sounds with wheezes bilaterally. GI: No deficits noted. : No deficits noted. Derm: No deficits noted. Musculoskeletal: No deficits noted. Historical: - Home Meds: 12:13 albuterol sulfate 1.25 mg/3 mL Inhl nebu 3 mL as needed [Active]; albuterol sulfate 90 tr6 mcg/actuation Inhl HFAA 1 puff every 4-6 hours [Active]; - PMHx: 12:13 Asthma; COPD; tr6 - Immunization history:: Adult Immunizations up to date, Client reports having NOT received the Covid vaccine. - Social history:: Smoking status: Patient denies any tobacco usage or history of. Patient uses street drugs, marijuana. Screenin:14 Abuse screen: Denies threats or abuse. Denies injuries from another. Nutritional tr6 screening: No deficits noted. Tuberculosis screening: No symptoms or risk factors identified. Fall Risk None identified. Assessment: 12:21 Reassessment: see triage assessment. tr6 Vital Signs: 12:19 BP 166 / 150; Pulse 130; Resp 20; Temp 98.6(O); Pulse Ox 98% on R/A; Weight 77.11 kg; tr6 Height 5 ft. 10 in. (177.80 cm); Pain 0/10; 12:30 BP 126 / 99; Pulse 130; Resp 15; Pulse Ox 98% on R/A; tr6 14:45 BP 139 / 87; Pulse 120; Resp 15; Pulse Ox 97% on R/A; tr6 15:30 BP 141 / 86; Pulse 119; Resp 18; Pulse Ox 96% on R/A; tr6 12:19 Body Mass Index 24.39 (77.11 kg, 177.80 cm) tr6 ED Course: 12:11 Patient arrived in ED. tr6 12:11 Antonia Chavez, REBECCA is Primary Nurse. tr6 12:14 Resting quietly. Awaiting ED provider evaluation. tr6 12:14 Patient has correct armband on for positive identification. Bed in low position. Call tr6 light in reach. Side rails up X 1. casting and pasting supervisor on. Pulse ox on. NIBP on. Door closed. Noise minimized. Visitors limited. Lights dimmed. Moved to private room. Warm blanket given. Diet: Patient is NPO. 12:14 No provider procedures requiring assistance completed. Patient maintains SpO2 tr6 saturation greater than 95% on room air. 12:19 Valeriy Ceja NP is PHCP. pm1 12:20 Livan Lund MD is Attending Physician. pm1 12:20 Triage completed. tr6 12:21 Patient placed in an exam room. tr6 12:49 Subsequent Neb Treatment Given as ordered Patient tolerated procedure well without tr6 adverse effect. Inserted saline lock: 18 gauge in right antecubital area, using aseptic technique. Blood collected. 13:03 XRAY Chest (1 view) In Process Unspecified. EDMS 15:47 IV discontinued, intact, bleeding controlled, No redness/swelling at site. Pressure tr6 dressing applied. Administered Medications: 12:35 Drug: Xopenex (levalbuterol) 1.25 mg Route: Inhalation; tr6 12:35 Drug: Xopenex (levalbuterol) 1.25 mg Route: Inhalation; tr6 12:50 Drug: SOLU-Medrol (methylPrednisoLONE) 125 mg Route: IVP; Site: right antecubital; tr6 13:05 Follow up: Response: No adverse reaction tr6 13:07 Drug: NS 0.9% 1000 ml Route: IV; Rate: 1000 ml; Site: right antecubital; tr6 16:06 Follow up: Response: No adverse reaction; IV Status: Completed infusion; IV Intake: tr6 1000ml 14:04 Drug: Xopenex (levalbuterol) 1.25 mg Route: Inhalation; tr6 15:45 Drug: Rocephin (cefTRIAXone) 1 grams Route: IV; Rate: calculated rate; Site: right tr6 antecubital; 16:06 Follow up: Response: No adverse reaction; IV Status: Completed infusion; IV Intake: tr6 100ml Intake: 16:06 IV: 100ml; Total: 100ml. tr6 16:06 IV: 1000ml; Total: 1100ml. tr6 Outcome: 15:23 Discharge ordered by . pm1 15:46 Discharged to home ambulatory, pt refused wheelchair at this time tr6 15:46 Condition: improved 15:46 Discharge instructions given to patient, Instructed on discharge instructions, follow up and referral plans. medication usage, safety practices, Demonstrated understanding of instructions, follow-up care, medications, Prescriptions given X 4. 16:10 Patient left the ED. tr6 Signatures: Dispatcher [employer] EDMS Valeriy Ceja NP GLACIOLOGIST pm1 Antonia Chavez, RN RN tr6
[2021-06-19] MEDS ORDERED: CEFTRIAXONE 1000 MG/VIAL ONE (16:03)
[2021-06-19] MEDS ORDERED: NA CHLORIDE 0.9% 100 ML ONE (16:03)
[2021-06-19 16:18] VITALS: TEMP 98.6
[2021-06-19 16:22] VITALS: BP 141/86; O2SAT 96
== END 2021-06-19 16:10 | disposition home or self-care (01) ==
LOC: ER 12:07
DX: J44.1 Chronic obstructive pulmonary disease with (acute) exacerbation (principal); Z20.822 Contact with and (suspected) exposure to COVID-19
CPT/HCPCS: 0240U; 36415; 71045; 80048; 80076; 83735; 83880; 84484; 85025; 85610; 93005; 96361; 96365; 96375; 99285; J2930; J7030

== ENCOUNTER 2021-07-05 00:48 | Emergency (ER) | payer SELFPAY ==
[2021-07-05] MEDS ORDERED: Magnesium Sulfate 2gm IVPB 2 G/50 ML BAG IV ONE (01:36)
[2021-07-05] MEDS ORDERED: NA CHLORIDE 0.9% 1,000 ML ONE (01:36)
[2021-07-05 01:47] LABS: Absolute Lymphocytes (CBC) 2.4 K/uL (0.7-4.9); Basophils % 0.6 % (0-1.3); Hematocrit 45.4 % (39.6-49.0); Lymphocytes % 14.1 % (15.3-44.8); MPV 8.4 fL (7.6-11.3); RBC Red Blood Cell Count 4.86 M/uL (4.33-5.43)
[2021-07-05 01:50] LABS: Potassium 3.7 mmol/L (3.5-5.1)
--- NOTE | 2021-07-05 02:02 | EDPHYS ---
Physician Documentation [facility] Name: Oni Barroso Age: 51 yrs Sex: Male : 1970 Arrival Date: 07/05/2021 Time: 00:54 Bed 24 Private MD: ED Physician Kole Barger HPI: 07/05 01:51 This 51 yrs old Male presents to ER via EMS with complaints of shortness of kb breath. 01:51 The patient has shortness of breath with light activity. Onset: The symptoms/episode kb began/occurred 3 hour(s) ago. Duration: The symptoms are continuous. The patient's shortness of breath is aggravated by exertion, is alleviated by nothing. Associated signs and symptoms: Pertinent positives: non-productive cough. Severity of symptoms: At their worst the symptoms were moderate in the emergency department the symptoms are unchanged. The patient has experienced similar episodes in the past. The patient has not recently seen a physician. Pt reports shortness of breath for 3 hours after running after and carrying 90# dog. States he tried multiple albuterol treatments and about 5 puffs of albuterol inhaler without relief. States "when I get a flareup like this I need steroids." . Historical: - Allergies: 01:00 Bees; bc5 - Home Meds: 01:07 albuterol sulfate 90 mcg/actuation Inhl HFAA 1 puff every 4-6 hours [Active]; albuterol bc5 sulfate 1.25 mg/3 mL Inhl nebu 3 mL as needed [Active]; - PMHx: 01:00 COPD; Asthma; bc5 - PSHx: 01:06 None; bc5 - Immunization history:: Client reports having NOT received the Covid vaccine. - Social history:: Smoking status: Patient denies any tobacco usage or history of. ROS: 01:20 Constitutional: Negative for fever, chills, and weight loss. kb 01:20 Respiratory: Positive for cough, dyspnea on exertion, shortness of breath, wheezing. 01:20 All other systems are negative. Exam: 01:19 Constitutional: This is a well developed, well nourished patient who is awake, alert, kb and in no acute distress. Head/Face: Normocephalic, atraumatic. ENT: Moist Mucous membranes Cardiovascular: Regular rate and rhythm with a normal S1 and S2. No gallops, murmurs, or rubs. No pulse deficits. Abdomen/GI: Soft, non-tender. No distention Skin: Warm, dry with normal turgor. Normal color. MS/ Extremity: Pulses equal, no cyanosis. Neurovascular intact. Full, normal range of motion. Neuro: Awake and alert, GCS 15, oriented to person, place, time, and situation. Moves all extremities. Normal gait. Psych: Awake, alert, with orientation to person, place and time. Behavior, mood, and affect are within normal limits. 01:19 Respiratory: the patient does not display signs of respiratory distress, Respirations: normal, Breath sounds: wheezing: inspiratory expiratory that is mild, is scattered. 01:20 ECG was reviewed by the Attending Physician. Vital Signs: 00:57 BP 135 / 94; Pulse 118; Resp 22; Temp 97.9(O); Pulse Ox 98% ; Weight 79.38 kg (R); bc5 Height 5 ft. 10 in. (177.80 cm) (R); Pain 3/10; 02:02 BP 135 / 78; Pulse 106; Resp 19; Temp 97.8(O); Pulse Ox 100% on R/A; Pain 0/10; bc5 00:57 Body Mass Index 25.11 (79.38 kg, 177.80 cm) bc5 MDM: 00:57 Patient medically screened. 01:20 Data reviewed: vital signs, nurses notes. Data interpreted: Pulse oximetry: on room air kb is 98 %. Interpretation: normal. 01:51 Counseling: I had a detailed discussion with the patient and/or guardian regarding: the kb historical points, exam findings, and any diagnostic results supporting the discharge/admit diagnosis, lab results, radiology results, the need for outpatient follow up, a family practitioner, to return to the emergency department if symptoms worsen or persist or if there are any questions or concerns that arise at home. 02:02 Response to treatment: the patient's symptoms have markedly improved after treatment. 07/05 01:06 Order name: CBC with Diff; Complete Time: 01:50 kb 07/05 01:06 Order name: Basic Metabolic Panel; Complete Time: 01:50 kb 07/05 01:06 Order name: IV Start; Complete Time: 01:08 kb 07/05 01:06 Order name: Chest Single View XRAY kb EC:20 Rate is 117 beats/min. Rhythm is regular. QRS [place] is Normal. ND interval is normal at kb 116 msec. QRS interval is normal at 78 msec. QT interval is normal at 310 msec. Administered Medications: 01:28 Drug: Magnesium Sulfate 1 grams Route: IVPB; Infused Over: 30 mins; Site: left 5 antecubital; 02:01 Follow up: IV Status: Completed infusion; IV Intake: 25ml bc5 01:28 Drug: NS 0.9% 1000 ml Route: IV; Rate: 1000 ml; Site: left antecubital; bc5 02:01 Follow up: IV Status: Completed infusion; IV Intake: 1000ml bc5 Disposition: 08:46 Co-signature as Attending Physician, Kole Barger MD I agree with the assessment and radha plan of care. Disposition Summary: 07/05/21 02:02 Discharge Ordered Location: Home kb Condition: Stable kb Diagnosis - COPD/ Chronic obstructive pulmonary disease with (acute) exacerbation kb Followup: kb - With: Emergency Department - When: As needed - Reason: Worsening of condition Followup: kb - With: Private Physician - When: 2 - 3 days - Reason: Recheck today's complaints, Continuance of care, Re-evaluation by your physician Discharge Instructions: - Discharge Summary Sheet kb - Chronic Obstructive Pulmonary Disease Exacerbation kb Forms: - Medication Reconciliation Form kb - Thank You Letter kb - Antibiotic Education kb - Prescription Opioid Use kb Prescriptions: - Prednisone 20 mg Oral Tablet - take 1 tablet by ORAL route once daily for 5 days; 5 tablet; Refills: 0, kb Product Selection Permitted Signatures: Dispatcher [employer] Candy Brito, DANIELLA DIAZ-Kole Alvarado MD MD cha Corado, Bella, RN RN bc5
--- NOTE | 2021-07-05 02:02 | ER ---
Nurse's Notes [facility] Name: Oni Barroso Age: 51 yrs Sex: Male : 1970 Arrival Date: 07/05/2021 Time: 00:54 Bed 24 Private MD: Diagnosis: COPD/ Chronic obstructive pulmonary disease with (acute) exacerbation Presentation: 07/05 00:57 Chief complaint: Patient states: BIBA. 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 A\T\O x 3, RR is even and unlabored, speaking in clear and complete sentences a this time. Ebola Screen: Patient negative for fever greater than or equal to 101.5 degrees Fahrenheit, and additional compatible Ebola Virus Disease symptoms Patient denies exposure to infectious person. Patient denies travel to an Ebola-affected area in the 21 days before illness onset. No symptoms or risks identified at this time. Initial Sepsis Screen: Does the patient meet any 2 criteria? No. Patient's initial sepsis screen is negative. Does the patient have a suspected source of infection? No. Patient's initial sepsis screen is negative. Risk Assessment: Do you want to hurt yourself or someone else? Patient reports no desire to harm self or others. Onset of symptoms was July 05, 2021. 00:57 Method Of Arrival: EMS: [place] [id number] 00:57 Acuity: LASHAUN [address] [facility] 01:06 Coronavirus screen: Vaccine status: Patient reports being unvaccinated. [facility] Triage Assessment: 01:05 General: Appears comfortable, Behavior is calm, cooperative, appropriate for age. Pain: 5 Complains of pain in chest. Historical: - Allergies: 01:00 Bees; bc5 - Home Meds: 01:07 albuterol sulfate 90 mcg/actuation Inhl HFAA 1 puff every 4-6 hours [Active]; albuterol bc5 sulfate 1.25 mg/3 mL Inhl nebu 3 mL as needed [Active]; - PMHx: 01:00 COPD; Asthma; bc5 - PSHx: 01:06 None; bc5 - Immunization history:: Client reports having NOT received the Covid vaccine. - Social history:: Smoking status: Patient denies any tobacco usage or history of. Screenin:05 Abuse screen: Denies threats or abuse. Denies injuries from another. Nutritional bc5 screening: No deficits noted. Tuberculosis screening: No symptoms or risk factors identified. Fall Risk No fall in past 12 months (0 pts). No secondary diagnosis (0 pts). IV access (20 points). Ambulatory Aid- None/Bed Rest/Nurse Assist (0 pts). Gait- Normal/Bed Rest/Wheelchair (0 pts) Mental Status- Oriented to own ability (0 pts). Total Brar Fall Scale indicates No Risk (0-24 pts). Assessment: 02:02 Neuro: No deficits noted. Cardiovascular: No deficits noted. Respiratory: Reports bc5 shortness of breath. Vital Signs: 00:57 BP 135 / 94; Pulse 118; Resp 22; Temp 97.9(O); Pulse Ox 98% ; Weight 79.38 kg (R); bc5 Height 5 ft. 10 in. (177.80 cm) (R); Pain 3/10; 02:02 BP 135 / 78; Pulse 106; Resp 19; Temp 97.8(O); Pulse Ox 100% on R/A; Pain 0/10; bc5 00:57 Body Mass Index 25.11 (79.38 kg, 177.80 cm) bc5 ED Course: 00:54 Patient arrived in ED. wg 00:57 Savannah Voss, RN is Primary Nurse. bc5 00:57 Candy Parra FNP-C [facility]. kb 00:57 Kole Barger MD is Attending Physician. kb 00:59 Triage completed. bc5 00:59 EKG done, by ED staff, reviewed by Kole Barger MD EKG reviewed by narciso Arizmendi. 01:05 Arm band placed on right wrist. bc5 01:05 Patient has correct armband on for positive identification. Bed in low position. Call [facility] light in reach. Side rails up X 1. 01:28 Inserted saline lock: 20 gauge in left antecubital area, using aseptic technique. bc5 01:32 Chest Single View XRAY In Process Unspecified. EDMS 02:20 No provider procedures requiring assistance completed. IV discontinued, intact, bc5 bleeding controlled, No redness/swelling at site. Pressure dressing applied. Administered Medications: 01:28 Drug: Magnesium Sulfate 1 grams Route: IVPB; Infused Over: 30 mins; Site: left bc5 antecubital; 02:01 Follow up: IV Status: Completed infusion; IV Intake: 25ml bc5 01:28 Drug: NS 0.9% 1000 ml Route: IV; Rate: 1000 ml; Site: left antecubital; bc5 02:01 Follow up: IV Status: Completed infusion; IV Intake: 1000ml bc5 Intake: 02:01 IV: 25ml; Total: 25ml. bc5 02:01 IV: 1000ml; Total: 1025ml. bc5 Outcome: 02:02 Discharge ordered by . rashard 02:20 Discharged to home ambulatory. bc5 02:20 Condition: improved 02:20 Discharge instructions given to patient, Instructed on discharge instructions, follow up and referral plans. medication usage, Prescriptions given X 1. 02:20 Patient left the ED. bc5 Signatures: Dispatcher [employer] EDMS Candy Parra FNP-C FNP-Erik Meza tt3 Ike Robert RN Savannah Voss RN RN bc5 Corrections: (The following items were deleted from the chart) 01:00 00:59 EKG done, by ED staff, reviewed by Kole Barger MD tt3 tt3
[2021-07-05 02:29] VITALS: BP 135/78; TEMP 97.8; O2SAT 100
--- NOTE | 2021-07-05 09:10 | RAD REPORT ---
EXAM DESCRIPTION: RAD - Chest Single View - 07/05/2021 1:32 am CLINICAL HISTORY: DYSPNEA Chest pain. COMPARISON: Chest Single View dated 06/19/2021; Chest Single View dated 11/27/2019; Chest Single View d ated 08/06/2019; Chest Single View dated 12/03/2018 FINDINGS: Portable technique limits examination quality. The lungs are grossly clear. The heart is normal in size. No displaced fractures. IMPRESSION: No acute intrathoracic process suspected.
--- NOTE | 2021-07-06 16:41 | EKG ---
Test Date: 2021-07-05 Test Time: 00:57:21 Shipping/Receiving Manager: TLT MEASUREMENT RESULTS: Intervals: Rate: 117 LA: 116 QRSD: 78 QT: 310 QTc: 432 Treichlers: P: 9 LA: 116 QRS: 59 T: 52 INTERPRETIVE STATEMENTS: Sinus tachycardia Otherwise normal ECG Compared to ECG 06/19/2021 12:58:20 Short LA interval no longer present T-wave abnormality no longer present Electronically Signed On 07-06-21 16:36:11 CDT by Ben Medina
== END 2021-07-05 02:20 | disposition home or self-care (01) ==
LOC: ER 00:48
DX: J44.1 Chronic obstructive pulmonary disease with (acute) exacerbation (principal); Z91.030 Bee allergy status
CPT/HCPCS: 36415; 71045; 80048; 85025; 93005; 96365; 99284; J3475; J7030

== ENCOUNTER 2021-07-24 02:26 | Inpatient (IN) | payer SELFPAY ==
[2021-07-24 02:51] LABS: Absolute Lymphocytes (CBC) 7.8 K/uL (0.7-4.9); Basophils % 1.1 % (0-1.3); Hematocrit 49.1 % (39.6-49.0); Lymphocytes % 41.5 % (15.3-44.8); MPV 8.6 fL (7.6-11.3); RBC Red Blood Cell Count 5.04 M/uL (4.33-5.43)
[2021-07-24 02:54] LABS: Urine Blood 2+ (Negative); Urine Glucose Negative (Negative); Urine Protein 3+ (Negative); Urine Specific Gravity 1.015 (1.005-1.030)
[2021-07-24 02:57] LABS: Protime INR 1.15
--- NOTE | 2021-07-24 03:05 | ER ---
Nurse's Notes [facility] Name: Oni Barroso Age: 51 yrs Sex: Male : 1970 Arrival Date: 07/24/2021 Time: 02:26 Bed 28 Private MD: Diagnosis: COPD/ Chronic obstructive pulmonary disease with (acute) exacerbation;Acute and chronic respiratory failure with hypoxia Presentation: 07/24 02:30 Chief complaint: EMS states: they were toned out for report of pt with respiratory bb distress. They were told pt has had increasing SOB over the last month and has been using his inhaler more frequently but symptoms got worse tonight. Coronavirus screen: difficulty breathing, shortness of breath, Client presents with at least one sign or symptom that may indicate coronavirus-19. Standard/surgical mask placed on the client. Ebola Screen: No symptoms or risks identified at this time. Initial Sepsis Screen: Does the patient meet any 2 criteria? RR > 20 per min. Altered Mental Status. HR > 90 bpm. Yes Does the patient have a suspected source of infection? Yes: Other: hypoxia. Risk Assessment: Do you want to hurt yourself or someone else? Unable to obtain. Onset of symptoms was July 24, 2021. 02:30 Method Of Arrival: EMS: [facility] bb 02:30 Acuity: LASHAUN 1 bb Historical: - Allergies: 03:12 Bees; bb - Home Meds: 03:12 albuterol sulfate 1.25 mg/3 mL Inhl nebu 3 mL as needed [Active]; albuterol sulfate 90 bb mcg/actuation Inhl HFAA 1 puff every 4-6 hours [Active]; - PMHx: 03:12 Asthma; COPD; bb - Immunization history:: Adult Immunizations unknown. - Social history:: Smoking status: unknown. Screenin:41 Abuse screen: Denies threats or abuse. Denies injuries from another. Nutritional lp1 screening: No deficits noted. Tuberculosis screening: No symptoms or risk factors identified. Fall Risk Total Brar Fall Scale indicates High Risk Score (45 or more points). Fall prevention measures have been instituted. Side Rails Up X 2 Placed Close to Nursing Station Frequent Obs/Assessments Occuring. Assessment: 02:20 General: Appears distressed, Behavior is combative, restless, uncooperative. Pain: lp1 Unable to use pain scale. Patient is disoriented. Neuro: Level of Consciousness is awake, Oriented to unable to assess, patient uncooperative. Cardiovascular: Capillary refill < 3 seconds in bilateral fingers toes Rhythm is sinus tachycardia. Respiratory: Airway is patent Trachea midline Respiratory effort is gasping, Respiratory pattern is tachypnea Breath sounds are diminished bilaterally. Derm: Skin is diaphoretic, Skin is dusky. 02:25 Reassessment: Patient agitated, kicking, uncooperative; injury noted, Lacerative noted lp1 to left heel, minimal bleeding. 03:00 Neuro:. Respiratory: Airway via oral intubation Breath sounds are clear bilaterally. lp1 GI: Oral gastric tube in place, to suction. : Sutton in place to gravity drainage. Derm: Skin is intact, Skin is dry, Skin is normal. 03:40 Reassessment: Patient appears in no apparent distress at this time. No changes from lp1 previously documented assessment. Patient waking intermittently, Propofol increased; eyes opening. 04:27 Reassessment: Patient continued intermittent restlessness, agitation, kicking feet; lp1 Verbal order from Dr. Armijo to increase Propofol to 60 mcg/kg/min. Vital Signs: 02:25 Pulse 142; Resp 50; Pulse Ox 59% on 15% Non-rebreather mask; lp1 02:40 BP 167 / 12; Pulse 136; Resp 22; Pulse Ox 100% on 40% FiO2 ETT vent; lp1 02:50 BP 147 / 103; Pulse 140; Resp 24; Pulse Ox 100% on 40% FiO2 ETT vent; lp1 03:00 Temp 99.9(R); lp1 03:05 BP 100 / 78; Pulse 131; Resp 29; Pulse Ox 100% on 40% FiO2 ETT vent; lp1 03:13 Weight 80 kg; lp1 03:20 BP 125 / 85; Pulse 127; Resp 26; Pulse Ox 100% on 40% FiO2 ETT vent; lp1 03:40 BP 121 / 72; Pulse 117; Resp 24; Pulse Ox 100% on 40% FiO2 ETT vent; lp1 04:00 BP 111 / 78; Pulse 116; Resp 25; Pulse Ox 100% on 40% FiO2 ETT vent; lp1 04:33 BP 97 / 67; Pulse 107; Resp 16; Pulse Ox 94% on 30% FiO2 ETT vent; lp1 04:48 BP 99 / 65; Pulse 101; Resp 16; Pulse Ox 96% on 30% FiO2 ETT vent; lp1 ED Course: 02:26 Patient arrived in ED. mw2 02:30 Assisted provider with intubation using 7.5 mm ETT via oral route. ET tube secured at lp1 22cm at the lips. Set up intubation tray. Intubated by Idris Armijo MD Placement verified by CO2 detector w/ + color change, auscultating bilateral breath sounds, CXR. 02:30 Arm band placed on Patient placed in an exam room, on a stretcher, on oxygen, on bb monitoring engineer, on pulse oximetry, RT at bedside for intubation. 02:30 Placed in gown. Bed in low position. Side rails up X2. panel monitor on. Pulse ox on. lp1 NIBP on. 02:40 Inserted saline lock: 18 gauge in right antecubital area, using aseptic technique. ds4 Blood collected. 02:45 Sutton cath inserted, using sterile technique, 16 Fr., by nc, balloon inflated, to lp1 gravity drainage, urine specimen collected. NGT: inserted 16 Fr. other Oral. 02:47 Idris Armijo MD is Attending Physician. sp3 02:58 Chest Single View XRAY In Process Unspecified. EDMS 03:04 Gaurav Valdez MD is Hospitalizing Provider. sp3 03:08 Alexey Curry DO is Hospitalizing Provider. la1 03:12 Triage completed. bb 03:12 Shereen Reynoso, RN is Primary Nurse. lp1 03:53 Notified Nurse Practitioner and/or Physician Junior Bookkeeper of a critical lab result(s), bb lactic acid of 4.9 Jose Ennis SCRIPT MANAGER notified. 04:05 Patient admitted, IV remains in place. lp1 Restraints: 02:30 Non-Violent Restraint: Order Initiated on July 24, 2021 at 02:30 Restraint Education lp1 provided to family/significant other/legally authorized territory representative. Actions/Behavior observed: Confused/disoriented, has difficulty remembering/follow instructions, has impaired decision making, unable to follow instructions, repeated attempts to remove artifical airway/mechanical resp support, Less restrictive alternatives attempted: reoriented to location, medicated for pain/anxiety, lines/tubes covered, verbal de-escalation performed, Alternative interventions: Ineffective. Clinical justification for use: airway protection, line protection, patient safety, Mental status: agitated/restless, Cognition: poor judgement, poor safety awareness, impulsive, unable to follow commands, Circulation: Within defined parameters (based on Cardiovascular assessment) Skin integrity: Within defined parameters (based on Integumentary assessment) Signs of injury related to restraint: Small laceration to back of left heel of foot from kicking prior to intubation . Range of Motion (ROM): performed. 04:30 Non-Violent Restraint: Actions/Behavior observed: Confused/disoriented, has decreased lp1 level of consciousness, repeated attempts to remove artifical airway/mechanical resp support, Mental status: agitated/restless, Cognition: Unable to assess. poor safety awareness, impulsive, unable to follow commands, Circulation: Within defined parameters (based on Cardiovascular assessment) Skin integrity: Within defined parameters (based on Integumentary assessment) Signs of injury related to restraint: No injuries noted. Range of Motion (ROM): performed. Elimination/Hygiene: with urinary catheter. Administered Medications: 02:26 Drug: Etomidate 20 mg Route: IVP; Site: right antecubital; lp1 03:38 Follow up: Response: No adverse reaction lp1 02:28 Drug: Succinylcholine 120 mg Route: IVP; Site: right antecubital; lp1 03:38 Follow up: Response: No adverse reaction lp1 02:30 Drug: Propofol 5 mcg/kg/min Route: IV; Rate: calculated rate; Site: right antecubital; lp1 04:31 Follow up: Rate change 60 mcg/kg/min lp1 05:00 Follow up: IV Status: Infusion continued upon admission lp1 02:30 Drug: NS 0.9% 1000 ml Route: IV; Rate: 1 bolus; Site: right antecubital; lp1 04:02 Follow up: IV Status: Completed infusion; IV Intake: 1000ml lp1 02:34 CANCELLED (Other Intervention Used): NS 0.9% (30 ml/kg) 30 ml/kg IV at bolus once; la1 Sepsis Protocol 02:35 Drug: SOLU-Medrol (methylPrednisoLONE) 125 mg Route: IVP; Site: right antecubital; lp1 03:38 Follow up: Response: No adverse reaction lp1 02:35 Drug: Magnesium Sulfate 2 grams Route: IVPB; Infused Over: 2 hrs; Site: right lp1 antecubital; 03:38 Follow up: IV Status: Completed infusion lp1 02:45 Drug: Albuterol - atroVENT (ipratropium) (3:1) (2.5 mg - 0.5 mg) 3 ml Route: Nebulizer; lp1 04:29 Follow up: Response: No adverse reaction lp1 02:58 Drug: Versed (midazolam) 4 mg Route: IVP; Site: left antecubital; lp1 03:37 Follow up: Response: No adverse reaction lp1 03:30 Drug: Rocephin (cefTRIAXone) 1 grams Route: IV; Rate: calculated rate; Site: left lp1 antecubital; 03:56 Follow up: IV Status: Completed infusion; IV Intake: 50ml lp1 03:56 Drug: Zithromax (azithromycin) 500 mg Route: IVPB; Infused Over: 1 hrs; Site: left lp1 antecubital; 04:59 Follow up: IV Status: Completed infusion; IV Intake: 250ml lp1 04:02 Drug: NS 0.9% 1000 ml Route: IV; Rate: 1000 ml; Site: left antecubital; lp1 04:59 Follow up: IV Status: Completed infusion; IV Intake: 1000ml lp1 04:02 Drug: Versed (midazolam) 2 mg {Note: Verbal order per EMILY Durate.} Route: IVP; lp1 Site: left antecubital; 04:16 Follow up: Response: No change in condition lp1 04:31 Drug: Nimbex (cisatracurium) 10 mg Route: IVP; Site: left antecubital; lp1 04:59 Follow up: Response: Marked relief of symptoms lp1 06:14 Drug: Nimbex (cisatracurium) 10 mg {Note: Verbal order per Dr. Armijo.} Route: IVP; lp1 Site: left antecubital; 06:56 Follow up: Response: Marked relief of symptoms lp1 Intake: 03:56 IV: 50ml; Total: 50ml. lp1 04:02 IV: 1000ml; Total: 1050ml. lp1 04:59 IV: 1000ml; Total: 2050ml. lp1 04:59 IV: 250ml; Total: 2300ml. lp1 Outcome: 03:05 Decision to Hospitalize by Provider. sp3 05:04 Admitted to ER Hold. Please see [facility] for further documentation. lp1 05:04 critical 05:04 Instructed on the need for admit. 07/28 04:01 Patient left the ED. bb Signatures: Dispatcher [employer] EDMaricel Bronson, RN RN bb Shereen Reynoso RN RN lp1 Ricky Glass ds4 Jose Ennis, SOFTWARE DESIGN ANALYST-C SOFTWARE DESIGN ANALYST-Malik1 Dacia Qureshi mw2 Idris Armijo MD MD sp3 Corrections: (The following items were deleted from the chart) 07/24 03:13 03:12 Arm band placed on Patient placed in an exam room, on a stretcher, on oxygen, on bb monitoring engineer, on pulse oximetry, RT at bedside for intubation bb
--- NOTE | 2021-07-24 03:05 | EDPHYS ---
Physician Documentation [facility] Name: Oni Barroso Age: 51 yrs Sex: Male : 1970 Arrival Date: 07/24/2021 Time: 02:26 Bed 28 Private MD: ED Physician Idris Armijo HPI: 07/24 02:48 This 51 yrs old Male presents to ER via Unassigned with complaints of sp3 Shortness of Breath. 02:48 51-year-old male with history of COPD and asthma presents via EMS in extremis for sp3 shortness of breath. EMS arrived on scene and was called by patient's for difficulty breathing and initially had a room air pulse oxygenation of 86%. EMS placed patient on nonrebreather mask established IV access and presented here. In route patient decompensated and became more altered it was pulse oxygenation dropped further and patient became severely agitated. No other history is available including medications, past surgical history, other medical history or med compliance. is not yet here to the emergency department. Review of systems is not obtainable secondary to patient extremitas and later intubation.. Historical: - Allergies: 03:12 Bees; bb - Home Meds: 03:12 albuterol sulfate 1.25 mg/3 mL Inhl nebu 3 mL as needed [Active]; albuterol sulfate 90 bb mcg/actuation Inhl HFAA 1 puff every 4-6 hours [Active]; - PMHx: 03:12 Asthma; COPD; bb - Immunization history:: Adult Immunizations unknown. - Social history:: Smoking status: unknown. ROS: 02:51 Unable to obtain ROS due to patient distress, patient is on ventilator. sp3 Exam: 02:51 Head/Face: Normocephalic, atraumatic. Chest/axilla: Normal chest wall appearance and sp3 motion. Nontender with no deformity. No lesions are appreciated. 02:51 Constitutional: The patient appears anxious, diaphoretic, in obvious distress, severely distressed. 02:51 Cardiovascular: Rate: tachycardic. 02:51 Respiratory: severe repiratory distress is noted, Respirations: labored breathing, accessory muscle usage, grunting, nasal flaring, prolonged exhalation, Breath sounds: decreased breath sounds, stridor, wheezing: Patient in extreme respiratory distress and was intubed -- please see MDM for further notes.. 03:02 Respiratory: sp3 03:05 ECG was reviewed by the Attending Physician. EKG demonstrates sinus tachycardia at 130 sp3 bpm with normal intervals, normal QRS, normal axis, nonspecific ST/T changes without evidence of ischemia. Vital Signs: 02:25 Pulse 142; Resp 50; Pulse Ox 59% on 15% Non-rebreather mask; lp1 02:40 BP 167 / 12; Pulse 136; Resp 22; Pulse Ox 100% on 40% FiO2 ETT vent; lp1 02:50 BP 147 / 103; Pulse 140; Resp 24; Pulse Ox 100% on 40% FiO2 ETT vent; lp1 03:00 Temp 99.9(R); lp1 03:05 BP 100 / 78; Pulse 131; Resp 29; Pulse Ox 100% on 40% FiO2 ETT vent; lp1 03:13 Weight 80 kg; lp1 03:20 BP 125 / 85; Pulse 127; Resp 26; Pulse Ox 100% on 40% FiO2 ETT vent; lp1 03:40 BP 121 / 72; Pulse 117; Resp 24; Pulse Ox 100% on 40% FiO2 ETT vent; lp1 04:00 BP 111 / 78; Pulse 116; Resp 25; Pulse Ox 100% on 40% FiO2 ETT vent; lp1 04:33 BP 97 / 67; Pulse 107; Resp 16; Pulse Ox 94% on 30% FiO2 ETT vent; lp1 04:48 BP 99 / 65; Pulse 101; Resp 16; Pulse Ox 96% on 30% FiO2 ETT vent; lp1 MDM: 02:47 Patient medically screened. sp3 03:01 Data reviewed: vital signs, nurses notes. sp3 03:02 ED course: Patient in extreme respiratory distress and after evaluating for 2 to 3 sp3 minutes in the emergency department and patient continuing to deteriorate, combative and a danger to himself. Patient was immediately intubated after that with 120 mg of succinylcholine and 20 mg of etomidate using a 7.5 endotracheal tube and a MAC 4 blade which was placed without difficulty with equal chest rise and fall and CO2 color change on color changing device. Subsequent chest x-ray determined that ET tube is approximate 4 cm above the janki with no pneumothorax and OG tube successfully traversing into the stomach. Blood gas demonstrated 7.08/65/372 with a bicarb of 18. Patient likely in a respiratory acidosis we will maintain minute volume such abreast on stack and focus on oxygenation with a slow correction of the acidosis. Patient is being sedated with propofol as needed and Versed as a secondary agent. Antibiotics will be started, magnesium is already been started, and Solu-Medrol is already been given. Patient likely to be intubated for 24 to 48 hours and will be kept here at this facility and admitted to the internal medicine service.. 07/24 02:33 Order name: Amylase, Serum la07/24 02:33 Order name: Basic Metabolic Panel id07/24 02:33 Order name: Blood Culture Adult (2) id07/24 02:33 Order name: CBC with Diff id07/24 02:33 Order name: CPK id07/24 02:33 Order name: Ckmb id07/24 02:33 Order name: LFT's id07/24 02:33 Order name: Lactate id07/24 02:33 Order name: Lipase; Complete Time: 03:32 id07/24 02:33 Order name: Procalcitonin; Complete Time: 03:32 id07/24 02:33 Order name: Protime (+inr); Complete Time: 03:00 id07/24 02:33 Order name: Ptt, Activated; Complete Time: 03:00 id07/24 02:33 Order name: Troponin (emerg Dept Use Only); Complete Time: 03:32 id07/24 02:33 Order name: Urine Microscopic Only; Complete Time: 03:32 id07/24 02:34 Order name: Amylase; Complete Time: 03:32 EDOK 07/24 02:34 Order name: Basic Metabolic Panel; Complete Time: 03:32 EDOK 07/24 02:34 Order name: Blood Culture [facility] 07/24 02:34 Order name: CBC with Automated Diff; Complete Time: 02:56 OK 07/24 02:34 Order name: Creatine Phosphokinase; Complete Time: 03:32 OK 07/24 02:34 Order name: CKMB Creatine Kinase MB; Complete Time: 03:32 EDMS 07/24 02:34 Order name: Liver (Hepatic) Function; Complete Time: 03:32 EDOK 07/24 02:34 Order name: Lactate; Complete Time: 03:53 EDMS 07/24 02:35 Order name: ABG la1 07/24 02:36 Order name: ABG Arterial Blood Gas; Complete Time: 05:08 EDMS 07/24 02:45 Order name: Glucose, Ancillary Testing; Complete Time: 02:56 EDMS 07/24 02:50 Order name: COVID-19 (Coronavirus) Document "Date of Onset" if Symptomatic mw2 07/24 02:54 Order name: Urine Dipstick-Ancillary EDMS 07/24 02:55 Order name: Urine Drug Screen; Complete Time: 03:32 ds4 07/24 02:58 Order name: ETOH Level; Complete Time: 03:53 la1 07/24 03:16 Order name: Urine Culture EDOK 07/24 02:33 Order name: Chest Single View XRAY la1 07/24 04:23 Order name: SARS-COV-2 RT PCR; Complete Time: 05:08 EDMS 07/24 06:49 Order name: ABG Arterial Blood Gas EDOK 07/24 07:47 Order name: Lactate Sepsis 2 HR Follow-up EDOK 07/24 09:41 Order name: Glucose, Ancillary Testing EDOK 07/24 09:55 Order name: Hemoglobin A1c EDOK 07/24 09:58 Order name: Troponin I EDOK 07/24 09:58 Order name: T4 Free EDOK 07/24 09:58 Order name: Thyroid Stimulating Hormone EDOK 07/24 12:38 Order name: Glucose, Ancillary Testing EDOK 07/24 17:10 Order name: Troponin I EDOK 07/24 17:37 Order name: Glucose, Ancillary Testing EDOK 07/25 00:39 Order name: Glucose, Ancillary Testing EDOK 07/25 05:16 Order name: CBC with Automated Diff EDMS 07/25 05:57 Order name: Comprehensive Metabolic Panel EDOK 07/25 05:57 Order name: Troponin I EDOK 07/25 05:57 Order name: Lipid Profile EDOK 07/25 05:57 Order name: Magnesium EDMS 07/25 07:37 Order name: RAD EDOK 07/25 08:28 Order name: Manual Differential EDMS 07/25 12:28 Order name: Glucose, Ancillary Testing EDOK 07/25 17:37 Order name: Glucose, Ancillary Testing EDOK 07/25 19:50 Order name: CXR XRAY 07/25 20:23 Order name: RAD EDMS 07/25 22:10 Order name: RAD EDMS 07/26 00:35 Order name: Glucose, Ancillary Testing EDMS 07/26 04:31 Order name: CBC with Automated Diff EDMS 07/26 05:03 Order name: Comprehensive Metabolic Panel EDMS 07/26 05:03 Order name: Magnesium EDMS 07/27 03:55 Order name: CBC with Automated Diff EDMS 07/27 04:03 Order name: Comprehensive Metabolic Panel EDMS 07/27 04:03 Order name: Magnesium EDMS 07/24 02:33 Order name: Accucheck; Complete Time: 02:43 07/24 02:33 Order name: Cardiac monitoring; Complete Time: 02:43 07/24 02:33 Order name: EKG - Nurse/Tech; Complete Time: 03:06 07/24 02:33 Order name: IV Saline Lock - Large Bore; Complete Time: 02:43 07/24 02:33 Order name: Labs collected and sent; Complete Time: 02:43 07/24 02:33 Order name: O2 Per Protocol; Complete Time: 02:43 07/24 02:33 Order name: O2 Sat Monitoring; Complete Time: 02:43 07/24 02:33 Order name: Urine Dipstick-Ancillary (obtain specimen); Complete Time: 02:55 07/24 02:35 Order name: NG Tube; Complete Time: 03:12 07/24 02:35 Order name: [place]; Complete Time: 03:05 07/24 05:29 Order name: Restrain Patient; Complete Time: 05:29 lp1 Administered Medications: 02:26 Drug: Etomidate 20 mg Route: IVP; Site: right antecubital; lp1 03:38 Follow up: Response: No adverse reaction lp1 02:28 Drug: Succinylcholine 120 mg Route: IVP; Site: right antecubital; lp1 03:38 Follow up: Response: No adverse reaction lp1 02:30 Drug: Propofol 5 mcg/kg/min Route: IV; Rate: calculated rate; Site: right antecubital; lp1 04:31 Follow up: Rate change 60 mcg/kg/min lp1 05:00 Follow up: IV Status: Infusion continued upon admission lp1 02:30 Drug: NS 0.9% 1000 ml Route: IV; Rate: 1 bolus; Site: right antecubital; lp1 04:02 Follow up: IV Status: Completed infusion; IV Intake: 1000ml lp1 02:34 CANCELLED (Other Intervention Used): NS 0.9% (30 ml/kg) 30 ml/kg IV at bolus once; la1 Sepsis Protocol 02:35 Drug: SOLU-Medrol (methylPrednisoLONE) 125 mg Route: IVP; Site: right antecubital; lp1 03:38 Follow up: Response: No adverse reaction lp1 02:35 Drug: Magnesium Sulfate 2 grams Route: IVPB; Infused Over: 2 hrs; Site: right lp1 antecubital; 03:38 Follow up: IV Status: Completed infusion lp1 02:45 Drug: Albuterol - atroVENT (ipratropium) (3:1) (2.5 mg - 0.5 mg) 3 ml Route: Nebulizer; lp1 04:29 Follow up: Response: No adverse reaction lp1 02:58 Drug: Versed (midazolam) 4 mg Route: IVP; Site: left antecubital; lp1 03:37 Follow up: Response: No adverse reaction lp1 03:30 Drug: Rocephin (cefTRIAXone) 1 grams Route: IV; Rate: calculated rate; Site: left lp1 antecubital; 03:56 Follow up: IV Status: Completed infusion; IV Intake: 50ml lp1 03:56 Drug: Zithromax (azithromycin) 500 mg Route: IVPB; Infused Over: 1 hrs; Site: left lp1 antecubital; 04:59 Follow up: IV Status: Completed infusion; IV Intake: 250ml lp1 04:02 Drug: NS 0.9% 1000 ml Route: IV; Rate: 1000 ml; Site: left antecubital; lp1 04:59 Follow up: IV Status: Completed infusion; IV Intake: 1000ml lp1 04:02 Drug: Versed (midazolam) 2 mg {Note: Verbal order per EMILY Duarte.} Route: IVP; lp1 Site: left antecubital; 04:16 Follow up: Response: No change in condition lp1 04:31 Drug: Nimbex (cisatracurium) 10 mg Route: IVP; Site: left antecubital; lp1 04:59 Follow up: Response: Marked relief of symptoms lp1 06:14 Drug: Nimbex (cisatracurium) 10 mg {Note: Verbal order per Dr. Armijo.} Route: IVP; lp1 Site: left antecubital; 06:56 Follow up: Response: Marked relief of symptoms lp1 Disposition: 03:03 Critical Care:. sp3 Disposition Summary: 07/24/21 03:05 Hospitalization Ordered Hospitalization Status: Inpatient Admission sp3 Condition: Critical sp3 Problem: an acute exacerbation sp3 Symptoms: have worsened sp3 Bed/Room Type: Standard sp3 Provider: Alexey Curry(07/24/21 03:08) la1 Location: [facility] ER HOLD(07/24/21 03:08) Room Assignment: ERHOLD-(07/24/21 03:08) cg Diagnosis - COPD/ Chronic obstructive pulmonary disease with (acute) exacerbation sp3 - Acute and chronic respiratory failure with hypoxia sp3 Forms: - Medication Reconciliation Form sp3 - SBAR form sp3 Critical care time excluding procedures: 03:03 Critical care time: Bedside Care: 20 minutes, Consultation: 10 minutes, Family sp3 Intervention: 5 minutes. Total time: 35 minutes Signatures: Dispatcher [employer] EDMS Maricel Reece RN RN bb Shereen Reynoso RN RN lp1 Jose Ennis FNP-C FNP-Sangita Palomino RN RN cg Idris Armijo MD MD sp3 Corrections: (The following items were deleted from the chart) 02:34 02:33 NS 0.9% (30 ml/kg) 30 ml/kg IV at bolus once; Sepsis Protocol ordered. la1 la1 03:01 02:51 Respiratory: severe repiratory distress is noted, Respirations: labored sp3 breathing, accessory muscle usage, grunting, nasal flaring, prolonged exhalation, Breath sounds: decreased breath sounds, stridor, wheezing: Patient in extreme respiratory distress and after evaluating for 2 to 3 minutes in the emergency department and patient continuing to deteriorate, combative and a danger to himself. Patient was immediately intubated after that with 120 mg of succinylcholine and 20 mg of etomidate using a 7.5 endotracheal tube which was placed without difficulty with equal chest rise and fall and CO2 color change on color changing device. Subsequent chest x-ray determined that ET tube is approximate 4 cm above the janki with no pneumothorax and OG tube successfully traversing into the stomach. Blood gas demonstrated 7.08/65/372 with a bicarb of 18. Patient likely in a respiratory acidosis we will maintain minute volume such abreast on stack and focus on oxygenation with a slow correction of the acidosis. Patient is being sedated with propofol as needed and Versed as a secondary agent. Antibiotics will be started, magnesium is already been started, and Solu-Medrol is already been given. Patient likely to be intubated for 24 to 48 hours and will be kept here at this facility and admitted to the internal medicine service., sp3 03:01 02:51 Respiratory: severe repiratory distress is noted, Respirations: labored sp3 breathing, accessory muscle usage, grunting, nasal flaring, prolonged exhalation, Breath sounds: decreased breath sounds, stridor, wheezing: Patient in extreme respiratory distress and after evaluating for 2 to 3 minutes in the emergency department and patient continuing to deteriorate, combative and a danger to himself. Patient was immediately intubated after that with 120 mg of succinylcholine and 20 mg of etomidate using a 7.5 endotracheal tube which was placed without difficulty with equal chest rise and fall and CO2 color change on color changing device. Subsequent chest x-ray determined that ET tube is approximate 4 cm above the janki with no pneumothorax and OG tube successfully traversing into the stomach. Blood gas demonstrated 7.08/65/372 with a bicarb of 18. Patient likely in a respiratory acidosis we will maintain minute volume such abreast on stack and focus on oxygenation with a slow correction of the acidosis. Patient is being sedated with propofol as needed and Versed as a secondary agent. Antibiotics will be started, magnesium is already been started, and Solu-Medrol is already been given. Patient likely to be intubated for 24 to 48 hours and will be kept here at this facility and admitted to the internal medicine service., sp3 03:03 03:02 ED course: Patient in extreme respiratory distress and after evaluating for 2 to sp3 3 minutes in the emergency department and patient continuing to deteriorate, combative and a danger to himself. Patient was immediately intubated after that with 120 mg of succinylcholine and 20 mg of etomidate using a 7.5 endotracheal tube which was placed without difficulty with equal chest rise and fall and CO2 color change on color changing device. Subsequent chest x-ray determined that ET tube is approximate 4 cm above the janki with no pneumothorax and OG tube successfully traversing into the stomach. Blood gas demonstrated 7.08/65/372 with a bicarb of 18. Patient likely in a respiratory acidosis we will maintain minute volume such abreast on stack and focus on oxygenation with a slow correction of the acidosis. Patient is being sedated with propofol as needed and Versed as a secondary agent. Antibiotics will be started, magnesium is already been started, and Solu-Medrol is already been given. Patient likely to be intubated for 24 to 48 hours and will be kept here at this facility and admitted to the internal medicine service.. sp3 03:03 02:51 Respiratory: severe repiratory distress is noted, Respirations: labored sp3 breathing, accessory muscle usage, grunting, nasal flaring, prolonged exhalation, Breath sounds: decreased breath sounds, stridor, wheezing: Patient in extreme respiratory distress and after evaluating for 2 to 3 minutes in the emergency department and patient continuing to deteriorate, combative and a danger to himself. Patient was immediately intubated after that with 120 mg of succinylcholine and 20 mg of etomidate using a 7.5 endotracheal tube which was placed without difficulty with equal chest rise and fall and CO2 color change on color changing device. Subsequent chest x-ray determined that ET tube is approximate 4 cm above the janki with no pneumothorax and OG tube successfully traversing into the stomach. Blood gas demonstrated 7.08/65/372 with a bicarb of 18. Patient likely in a respiratory acidosis we will maintain minute volume such abreast on stack and focus on oxygenation with a slow correction of the acidosis. Patient is being sedated with propofol as needed and Versed as a secondary agent. Antibiotics will be started, magnesium is already been started, and Solu-Medrol is already been given. Patient likely to be intubated for 24 to 48 hours and will be kept here at this facility and admitted to the internal medicine service., sp3 03:08 03:05 Gaurav Valdez sp3 la1 03:08 03:05 Intensive Care Unit sp3 cg 03:08 03:05 sp3 cg
[2021-07-24 03:14] LABS: Urine Bacteria 20-50 /HPF (NONE SEEN); Urine Mucus 1+ /HPF (NONE SEEN)
[2021-07-24 03:16] LABS: ALT/SGPT 32 U/L (12-78); AST/SGOT 18 U/L (15-37); Albumin 4.2 g/dL (3.4-5.0); Alkaline Phosphatase 88 U/L (45-117); Amylase 62 U/L (25-115); BUN Blood Urea Nitrogen 14 mg/dL (7-18); Bicarbonate 25 mmol/L (21-32); Bilirubin Direct 0.1 mg/dL (0-0.2); Bilirubin Total 0.8 mg/dL (0.2-1.0); CKMB Creatine Kinase MB < 1.0 ng/mL (1.0-3.6); Creatine Phosphokinase 94 U/L (39-308); Glucose Level 194 mg/dL (74-106); Lipase 135 U/L (73-393); Potassium 4.1 mmol/L (3.5-5.1); Sodium Level 138 mmol/L (136-145); Troponin (Emerg Dept Use Only) < 0.02 ng/mL (0.0-0.045)
[2021-07-24] MEDS ORDERED: RSI MEDICATION KIT IV ONE (03:18)
[2021-07-24] MEDS ORDERED: NA CHLORIDE 0.9% 1,000 ML ONE ×4 (03:19→13:46)
[2021-07-24] MEDS ORDERED: propofoL 1,000 MG/100 ML VIAL IV ONE ×6 (03:19→23:25)
[2021-07-24 03:21] LABS: Barbiturates NEGATIVE (NEGATIVE); Benzodiazepines NEGATIVE (NEGATIVE); Cocaine NEGATIVE (NEGATIVE); METHAMPHETAM NEGATIVE (NEGATIVE); Methadone NEGATIVE (NEGATIVE); Opiates NEGATIVE (NEGATIVE); Phencyclidine NEGATIVE (NEGATIVE); THC Cannibis POSITIVE (NEGATIVE)
[2021-07-24] MEDS ORDERED: METHYLPREDNISOLONE 125 MG INJ ONE (03:21)
[2021-07-24] MEDS ORDERED: IPRATROPIUM BROM 0.5MG/2.5ML ONE ×4 (03:30→21:59)
[2021-07-24] MEDS ORDERED: ALBUTEROL 2.5 MG/3 ML NEB SOL ONE ×4 (03:30→21:59)
[2021-07-24] MEDS ORDERED: Magnesium Sulfate 2gm IVPB 2 G/50 ML BAG IV ONE (03:30)
--- NOTE | 2021-07-24 03:43 | P.HP ---
Certification for Inpatient Patient admitted to: Inpatient With expected LOS: >2 Midnights Patient will require the following post-hospital care: None Practitioner: I am a practitioner with admitting privileges, knowledge of patient current condition, hospital course, and medical plan of care. Services: Services provided to patient in accordance with Admission requirements found in Title 42 Section 412.3 of the Code of Federal Regulations Patient History Date of Service: 07/24/21 Primary Care Provider: None Reason for admission: Respiratory failure History of Present Illness: 51-year-old male with history of asthma/COPD presents emergency department and severe respiratory distress, EMS reports that when they arrived on site patient was severely hypoxic they were only able to get his sats to around 81% on nebulizer treatment at 10 L. When patient arrived to the emergency department he was in extreme respiratory distress, pale, diaphoretic with severe expiratory wheezing, agitation and hypoxia. Patient required immediate intubation both for his respiratory status and protection from self- harm as patient was extremely agitated and confused. Patient was intubated successfully on first pass by ED provider and started on treatment for severe COPD exacerbation with IV steroids, magnesium, albuterol/Atrovent and vent management. After discussing further with patient spouse he has been having increasing shortness of breath over the course of the last 1 month but significantly worse today. Labs were significant for white blood cell count 18.9 creatinine 1.4 GFR 53 glucose 195 UDS positive for THC, ABG demonstrated pH of 7 PCO2 60. ED provider wishes to admit to ICU for further management. Allergies No Known Allergies Allergy (Verified 12/04/18 03:04) Home Medications: Albuterol Inhaler [Ventolin Inhaler*] 2 puff IH Q6H PRN #1 hfa.aer.ad 10/23/18 Albuterol Neb [Proventil 0.083% Neb Soln] 2.5 mg IH TIDP PRN #1 amp 12/05/18 Azithromycin [Zithromax] 500 mg PO DAILY #7 tablet 12/05/18 Mometasone/Formoterol [Dulera 200 Mcg/5 Mcg Inhaler] 2 puff IH BID #1 inhaler 12/05/18 Prednisone [Sterapred Ds] 10 mg PO BID #30 tab.ds.pk 12/05/18 - Past Medical/Surgical History Diabetic: No -: COPD/asthma -: right hip surgery Psychosocial/ Personal History: Patient lives at home with his significant other - Family History Sister -: Lung disease Notes: Asthma - Social History Smoking Status: Never smoker Alcohol use: No CD- Drugs: No Caffeine use: Yes Place of Residence: Home Review of Systems Sedated Physical Examination - Physical Exam General: Unresponsive HEENT: Atraumatic, Normocephalic Neck: Supple Respiratory: Diminished (Bilaterally), Expiratory wheezes (Severe) Cardiovascular: Irregular heart rate/rhythm (Sinus tachycardia rate 115) Capillary refill: <2 Seconds Gastrointestinal: Normal bowel sounds, Soft and benign Musculoskeletal: No contractures, No erythema, No tenderness Integumentary: No significant lesion, No tenderness/swelling, No erythema Neurological: Other (Sedated, on ventilator) - Studies Laboratory Data (last 24 hrs) 07/24/21 02:33: PT 13.3 H, INR 1.15, APTT 35.3 07/24/21 02:33: WBC 18.90 H, Hgb 16.1, Hct 49.1 H, Plt Count 358 07/24/21 02:33: Sodium 138, Potassium 4.1, BUN 14, Creatinine 1.40 H, Glucose 194 H, Total Bilirubin 0.8, AST 18, ALT 32, Alkaline Phosphatase 88, Amylase 62, Lipase 135 Assessment and Plan - Plan Assessment: Acute hypoxic/hypercapnic respiratory failure secondary to COPD with exacerbation Acute kidney injury THC abuse Plan: Acute hypoxic/hypercapnic respiratory failure secondary to COPD with exacerbation: Patient required emergent intubation upon arrival to the emergency department, continue with ventilator management, scheduled nebs, IV steroids. Pulmonology consult in place, blood cultures obtained in the ER, have ordered sputum cultures as well. Patient with leukocytosis white blood cell 18.9, covered with IV Rocephin/Zithromax. Appreciate further input from pulmonology, patient can likely be extubated the next 24 to 48 hours. Acute kidney injury: Continue with IV fluids overnight, recheck renal function. THC abuse: If patient is smoking likely contributing to COPD, will address cessation in detail and patient is off ventilator and coherent. DVT PPX: Lovenox Code status: Full Discharge Plan: Home Plan to discharge in: Greater than 2 days - Advance Directives Does patient have a Living Will: No Does patient have a Durable POA for Healthcare: No - Code Status/Comfort Care Code Status Assessed: Yes (Full code) Critical Care: No Time Spent Managing Pts Care (In Minutes): 55
[2021-07-24] MEDS ORDERED: MIDAZOLAM HCL 2 MG/2 ML INJ ONE ×5 (03:54→22:07)
[2021-07-24] MEDS ORDERED: CEFTRIAXONE 1000 MG/VIAL ONE (04:22)
[2021-07-24] MEDS ORDERED: NA CHLORIDE 0.9% 250 ML ONE (04:22)
[2021-07-24] MEDS ORDERED: AZITHROMYCIN 500 MG INJ IVPB ONE (04:22)
[2021-07-24] MEDS ORDERED: NA CHLORIDE 0.9% 50 ML ONE (04:23)
[2021-07-24 04:38] LABS: Blood O2 Saturation 98.9 % (92-98.5)
[2021-07-24] MEDS ORDERED: ONDANSETRON 4 MG/2 ML VIAL IV PRN (04:38)
[2021-07-24] MEDS: NA CHLORIDE 0.9% 1,000 ML IV SCH ×2 (04:38→13:10)
[2021-07-24] MEDS: ALBUTEROL 2.5 MG/3 ML NEB SOL NEB SCH ×4 (04:38→20:00)
[2021-07-24] MEDS: IPRATROPIUM BROM 0.5MG/2.5ML NEB SCH ×4 (04:38→20:00)
[2021-07-24] MEDS: METHYLPREDNISOLONE 40 MG INJ IV SCH ×3 (05:01→16:29)
[2021-07-24] MEDS: propofoL 1,000 MG/100 ML VIAL IV PRN ×5 (05:24→22:35)
[2021-07-24] MEDS ORDERED: CISATRACURIUM INJECTION 2 MG/ML (10 ML Vial) IV ONE (05:26)
--- NOTE | 2021-07-24 06:07 | P.PN ---
Subjective Date of Service: 07/24/21 Primary Care Provider: None Chief Complaint: Respiratory failure Subjective: Other (Patient remains intubated and sedated.) Physical Examination - Vital Signs Blood Pressure: 110/97 Pulse: 116 Respirations: 25 Pulse Ox (%): 100 - Studies Laboratory Data (last 24 hrs) 07/24/21 02:33: PT 13.3 H, INR 1.15, APTT 35.3 07/24/21 02:33: WBC 18.90 H, Hgb 16.1, Hct 49.1 H, Plt Count 358 07/24/21 02:33: Sodium 138, Potassium 4.1, BUN 14, Creatinine 1.40 H, Glucose 194 H, Total Bilirubin 0.8, AST 18, ALT 32, Alkaline Phosphatase 88, Amylase 62, Lipase 135 Assessment & Plan Discharge Plan: Home Plan to discharge in: Greater than 2 days Physician Review Additional Text: COVID: negative Physical exam: General: Patient remains intubated and sedated. Vital signs stable HEENT: Atraumatic, Normocephalic Neck: Supple Respiratory: Better air movement bilateral. Cardiovascular: Regular rate and rhythm Capillary refill: <2 Seconds Gastrointestinal: Normal bowel sounds, Soft and benign Musculoskeletal: No contractures, No erythema, No tenderness Integumentary: No significant lesion, No tenderness/swelling, No erythema Neurological: Other (Sedated, on ventilator) Impression: Acute hypoxic/hypercapnic respiratory failure secondary to COPD with exacerbation Acute kidney injury likely dehydration THC abuse Plan: Acute hypoxic/hypercapnic respiratory failure secondary to COPD with exacerbation: Patient remains intubated and sedated. Continue ventilator protocol. Continue IV steroid and COPD treatment. Respiratory to continue to wean off ventilator. Pulmonology consulted. Await recommendations. Procalcitonin negative. Patient covered for opportunistic infection. Continue IV antibiotic therapy. Await further recommendations from pulmonology. Anticipate continued improvement with likely extubation within the next 48 hours. I will turn the service over to the hospitalist team tomorrow. I'll go over the plan of care with him. Acute kidney injury likely dehydration: Continue IV fluids. Electrolyte protocol in place. THC abuse: We'll address cessation education once patient is extubated and alert. Leukocytosis possible underlying UTI: Continue with antibiotic therapy. Continue IV fluids. Await blood, urine and sputum culture results.. DVT PPX: Lovenox Code status: Full code Discharge Plan: Home at discharge Time Spent Managing Pts Care (In Minutes): 55
[2021-07-24 06:48] LABS: Arterial Blood Carboxyhemoglob 0.9 % (0-1.5); Blood Gas Oxyhemoglobin 95.7 % (94-97); Blood O2 Saturation 97.9 % (92-98.5)
[2021-07-24] MEDS: MIDAZOLAM HCL 2 MG/2 ML INJ IV PRN ×3 (07:57→21:33)
[2021-07-24] MEDS: FAMOTIDINE 20 MG/2 ML VIAL IV SCH ×2 (08:01→20:16)
[2021-07-24] MEDS ORDERED: D50W 25 GM/50 ML SYRINGE IV PRN (08:37)
[2021-07-24] MEDS ORDERED: GLUCAGON 1 MG/VIAL IM PRN (08:37)
[2021-07-24] MEDS ORDERED: ENOXAPARIN 40 MG/0.4 ML SQ ONE ×2 (08:43→11:16)
[2021-07-24] MEDS ORDERED: METHYLPREDNISOLONE 40 MG INJ ONE ×2 (08:43→16:31)
[2021-07-24] MEDS ORDERED: FAMOTIDINE 20 MG/2 ML VIAL IV ONE ×2 (08:44→20:53)
[2021-07-24] MEDS ORDERED: ENOXAPARIN 40 MG/0.4 ML SQ SCH (09:00)
[2021-07-24] MEDS: HALOPERIDOL LACT 5 MG/ML INJ IV PRN (09:15)
[2021-07-24 09:55] LABS: Thyroid Stimulating Hormone 0.436 uIU/mL (0.360-3.740)
[2021-07-24 09:57] LABS: Troponin I 2.07 ng/mL (0.0-0.045)
[2021-07-24] MEDS ORDERED: HALOPERIDOL LACT 5 MG/ML INJ ONE (10:13)
[2021-07-24] MEDS: ENOXAPARIN 80 MG/0.8 ML SQ SCH ×2 (10:17→20:15)
[2021-07-24] MEDS: ASPIRIN EC 81 MG TAB PO SCH (10:17)
--- NOTE | 2021-07-24 10:39 | P.CNS ---
Date of Consult: 07/24/21 Reason for Consult: REsp failure Primary Care Provider: None Chief Complaint: Respiratory failure History of Present Illness: Age 51 AW COPD exacerbation on vent and agitated max dose of propofol, Aw severe resp distress to the ER, worse over thepast month Allergies No Known Allergies Allergy (Verified 12/04/18 03:04) Home Medications: Albuterol Inhaler [Ventolin Inhaler*] 2 puff IH Q6H PRN #1 hfa.aer.ad 10/23/18 Albuterol Neb [Proventil 0.083% Neb Soln] 2.5 mg IH TIDP PRN #1 amp 12/05/18 Azithromycin [Zithromax] 500 mg PO DAILY #7 tablet 12/05/18 Mometasone/Formoterol [Dulera 200 Mcg/5 Mcg Inhaler] 2 puff IH BID #1 inhaler 12/05/18 Prednisone [Sterapred Ds] 10 mg PO BID #30 tab.ds.pk 12/05/18 - Past Medical/Surgical History Diabetic: No -: COPD/asthma -: right hip surgery Psychosocial/ Personal History: Patient lives at home with his significant other - Family History Sister Medical History: Lung disease Notes: Asthma - Social History Alcohol use: No CD- Drugs: No Caffeine use: Yes Place of Residence: Home Review of Systems is unable to be obtained Physical Examination Temp Pulse Resp BP Pulse Ox 97.6 F 85 18 101/72 98 07/24/21 08:00 07/24/21 10:00 07/24/21 10:00 07/24/21 10:00 07/24/21 10:00 General: Moderate distress, Unresponsive Respiratory: Diminished, Friction rub, Expiratory wheezes Cardiovascular: Regular rate/rhythm Laboratory Data (last 24 hrs) 07/24/21 02:33: PT 13.3 H, INR 1.15, APTT 35.3 07/24/21 02:33: WBC 18.90 H, Hgb 16.1, Hct 49.1 H, Plt Count 358 07/24/21 02:33: Sodium 138, Potassium 4.1, BUN 14, Creatinine 1.40 H, Glucose 194 H, Total Bilirubin 0.8, AST 18, ALT 32, Alkaline Phosphatase 88, Amylase 62, Lipase 135 - Problems (1) Respiratory failure Current Visit: Yes Status: Acute Plan: Age 51 AW resp failure on vent, Hypoxic hypercarbic resp fialure ,CXRY clear Advacne Et tube chagne ot PC vent/ labs reviewd meds adjusted Qualifiers: Chronicity: unspecified
[2021-07-24] MEDS: HYDROMORPHONE HCL 1 MG/ML INJ IV PRN ×3 (11:02→20:16)
[2021-07-24] MEDS ORDERED: ASPIRIN 81 MG CHEWABLE TABLET ONE (11:15)
[2021-07-24] MEDS: INSULIN -REGULAR HUMAN 50 UNIT/0.5 ML ML SQ SCH ×2 (12:00→18:00)
[2021-07-24] MEDS ORDERED: HYDROMORPHONE HCL 2 MG/ML inj ONE ×3 (12:01→20:52)
[2021-07-24] MEDS ORDERED: propofoL 500 MG/50 ML ML IV PRN (14:54)
[2021-07-24] MEDS ORDERED: ETOMIDATE 20 MG/10 ML VIAL IV ONE (15:44)
[2021-07-24] MEDS ORDERED: SUCCINYLCHOLINE 20 MG/ML (10 ML) IV ONE (15:44)
--- NOTE | 2021-07-24 17:04 | CON ---
Date of Consultation: 07/24/2021 Reason For Consultation: Elevated troponin. History Of Present Illness: Mr. Barroso is a 51-year-old. Has a history of severe COPD, came in respi ratory distress, got intubated. Troponin was elevated. I was consulted. No history was obtainable. Review of Systems: Not obtainable. Family History: Not obtainable. Social History: Not obtainable. Allergies: NONE. Medications: At home include inhalers, azithromycin, and prednisone. Physical Examination: Vital Signs: He was intubated. He was in sinus rhythm. He was afebrile. HEENT: Negative. Neck: Supple with no bruit. Chest: Revealed diffuse expiratory wheezes. Cardiac: Revealed regular rhythm and rate. No murmurs, gallops, or rubs. Abdomen: Benign. Extremities: Revealed 1+ edema. No clubbing. No cyanosis. Diagnostic Data: Showed a creatinine of 1.4. His white count is 18,000. Lactic acid was 4.9. Gluc ose is 185. He had THC positive on his urinalysis. Impression And Plan: 1.Chronic obstructive pulmonary disease exacerbation, requiring intubation. 2.Elevated creatinine. 3.Elevated white count and lactic acid consistent with possible sepsis. 4.Glucose intolerance. 5.Positive THC on urinalysis. 6.Elevated troponin secondary to demand ischemia. I agree with echocardiogram. I will continue to follow. RIMA/YEIMY Voice ID: [id number] Report ID: [id number]
[2021-07-24] MEDS: D5 0.9 NS 1,000 ML IV SCH (17:45)
[2021-07-24] MEDS ORDERED: D5 0.9 NS 1,000 ML IV ONE (18:44)
[2021-07-24] MEDS ORDERED: propofoL 0 MG/0 ML ML IV ONE (18:46)
[2021-07-24] MEDS ORDERED: ARFORMOTEROL TARTRATE 15 MCG/2 ML VIAL.NEB NEB SCH (20:00)
[2021-07-24] MEDS: ATORVASTATIN 40 MG TAB PO SCH (20:15)
[2021-07-24] MEDS ORDERED: ENOXAPARIN 80 MG/0.8 ML SQ ONE (20:53)
[2021-07-25] MEDS: MIDAZOLAM HCL 2 MG/2 ML INJ IV PRN ×4 (00:12→17:38)
[2021-07-25] MEDS: HYDROMORPHONE HCL 1 MG/ML INJ IV PRN ×3 (00:19→08:32)
[2021-07-25] MEDS ORDERED: HYDROMORPHONE HCL 2 MG/ML inj ONE ×6 (00:51→22:30)
[2021-07-25] MEDS: METHYLPREDNISOLONE 40 MG INJ IV SCH ×3 (01:00→17:16)
[2021-07-25] MEDS ORDERED: MIDAZOLAM HCL 2 MG/2 ML INJ ONE ×4 (01:06→18:33)
[2021-07-25] MEDS: HALOPERIDOL LACT 5 MG/ML INJ IV PRN ×3 (01:11→20:24)
[2021-07-25] MEDS: IPRATROPIUM BROM 0.5MG/2.5ML NEB SCH ×4 (02:00→20:00)
[2021-07-25] MEDS: ALBUTEROL 2.5 MG/3 ML NEB SOL NEB SCH ×4 (02:00→20:00)
[2021-07-25] MEDS ORDERED: HALOPERIDOL LACT 5 MG/ML INJ ONE ×3 (02:06→21:22)
[2021-07-25] MEDS ORDERED: IPRATROPIUM BROM 0.5MG/2.5ML ONE ×4 (02:30→21:05)
[2021-07-25] MEDS ORDERED: ALBUTEROL 2.5 MG/3 ML NEB SOL ONE ×4 (02:30→21:05)
[2021-07-25] MEDS: propofoL 1,000 MG/100 ML VIAL IV PRN ×4 (03:08→20:09)
[2021-07-25] MEDS: D5 0.9 NS 1,000 ML IV SCH ×2 (04:00→14:55)
[2021-07-25] MEDS ORDERED: propofoL 1,000 MG/100 ML VIAL IV ONE ×4 (04:01→20:40)
[2021-07-25] MEDS ORDERED: METHYLPREDNISOLONE 40 MG INJ ONE ×3 (04:07→18:08)
[2021-07-25] MEDS ORDERED: AZITHROMYCIN IV 500 MG in NA CHLORIDE 0.9% 250 ML IVPB SCH (05:00)
[2021-07-25 05:12] LABS: Absolute Lymphocytes (CBC) 0.9 K/uL (0.7-4.9); Basophils % 0.5 % (0-1.3); Hematocrit 36.3 % (39.6-49.0); Lymphocytes % 6.1 % (15.3-44.8); MPV 8.5 fL (7.6-11.3); RBC Red Blood Cell Count 3.81 M/uL (4.33-5.43)
[2021-07-25 05:46] LABS: Albumin 2.8 g/dL (3.4-5.0); Bilirubin Total 0.6 mg/dL (0.2-1.0); Magnesium 2.4 mg/dL (1.8-2.4); Potassium 3.9 mmol/L (3.5-5.1); Protein, Total 5.7 g/dL (6.4-8.2)
[2021-07-25] MEDS ORDERED: D5 0.9 NS 1,000 ML IV ONE ×2 (05:54→15:53)
[2021-07-25 05:57] LABS: Troponin I 2.35 ng/mL (0.0-0.045)
[2021-07-25] MEDS: CEFTRIAXONE 1 GM/NS 50 ML 1 GM/50 ML BAG IV SCH (06:00)
[2021-07-25] MEDS: INSULIN -REGULAR HUMAN 50 UNIT/0.5 ML ML SQ SCH ×4 (06:00→17:43)
[2021-07-25] MEDS ORDERED: CEFTRIAXONE 1000 MG/VIAL ONE (07:09)
[2021-07-25] MEDS ORDERED: INSULIN -REGULAR HUMAN 50 UNIT/0.5 ML ML ONE (07:18)
--- NOTE | 2021-07-25 07:36 | RAD REPORT ---
EXAM DESCRIPTION: RAD - Chest Single View - 07/25/2021 5:51 am CLINICAL HISTORY: COPD COMPARISON: July 24, July 05 TECHNIQUE: AP portable chest image was obtained 07/25/2021 5:51 am . FINDINGS: Endotracheal tube tip is positioned between the clavicles in the aortic arch. This is 5 cm above the janki, adequate positioning. NG/OG tube extends below the diaphragm, off the field of vie w. No new mass or consolidation. No pulmonary edema, failure or volume overload findings seen. Interstit ial pattern is prominent, accentuated by shallow inspiration. Heart and vasculature are normal. No me asurable pleural effusion and no pneumothorax. No acute bony abnormality seen. No acute aortic findin gs suspected. IMPRESSION: No focal mass or consolidation seen. Interstitial markings are prominent. A mild interstitial edema or infiltrate may be present. Intersti tial pattern is similar or only slightly worse than July 24.
[2021-07-25] MEDS: ENOXAPARIN 80 MG/0.8 ML SQ SCH (08:14)
[2021-07-25] MEDS: ASPIRIN EC 81 MG TAB PO SCH (08:14)
[2021-07-25] MEDS: FAMOTIDINE 20 MG/2 ML VIAL IV SCH ×2 (08:14→21:35)
[2021-07-25 08:28] LABS: Blood Morphology Comment NOT SEEN (NOT SEEN); Platelet Estimate ADEQ
[2021-07-25] MEDS ORDERED: LORazepam 2 MG/ML VIAL IV PRN (08:58)
[2021-07-25] MEDS ORDERED: ASPIRIN 81 MG CHEWABLE TABLET ONE (09:09)
[2021-07-25] MEDS ORDERED: FAMOTIDINE 20 MG/2 ML VIAL IV ONE ×2 (09:10→22:16)
[2021-07-25] MEDS ORDERED: ENOXAPARIN 80 MG/0.8 ML SQ ONE (09:10)
[2021-07-25] MEDS: LORazepam 2 MG/ML VIAL IV PRN ×2 (10:09→20:05)
--- NOTE | 2021-07-25 10:36 | RAD REPORT ---
EXAM DESCRIPTION: RAD - Chest Single View - 07/24/2021 2:59 am COMPARISON: Chest radiograph July 05, 2021 CLINICAL HISTORY: [facility] MAIN SOB FINDINGS: A single AP view of the chest demonstrates a normal cardiomediastinal silhouette. The endo tracheal tube tip measures 6.9 cm from the janki. Enteric tube tip projects off the edge of the film . No pneumothorax or pleural effusion. No consolidation or pulmonary edema. Osseous structures are intact. IMPRESSION: No acute chest process. Endotracheal and enteric tubes are in place. Electronically signed by: Vasile Garcia MD 07/24/2021 4:35 AM CDT Due to temporary technical issues with the PACS/Fluency reporting system, reports are being signed by the in house radiologists without review as a courtesy to insure prompt reporting. The interpreting radiologist is fully responsible for the content of the report.
--- NOTE | 2021-07-25 10:50 | PN ---
Date of Progress Note: 07/25/2021 Subjective: Mr. Barroso was admitted and seen on 07/24/2021 with respiratory failure requiring intubat ion, elevated troponin. Today, he remained intubated. Objective: He is in sinus tach at 102, temperature 99, blood pressure 100/58. His O2 saturation is adequate on mechanical ventilation. Laboratory Data: His creatinine has improved from 1.4 to 0.91. He still has an elevated white count . Echocardiogram is pending. His troponin was 2.35. Assessment And Plan: This is not an acute coronary syndrome. I think his troponin is elevated becau se of demand ischemia. We will see what the echo shows before making any further decisions. Present ly, he is on antibiotics, steroids, inhalers, insulin, Lovenox, aspirin, and I agree with the present regimen. RIMA/YEIMY Voice ID: [id number] Report ID: [id number]
[2021-07-25] MEDS ORDERED: LORazepam 2 MG/ML VIAL ONE ×2 (11:06→21:01)
[2021-07-25] MEDS ORDERED: VITAL AF 1,000 ML BOT RTH SCH (12:00)
--- NOTE | 2021-07-25 12:03 | P.PN ---
Subjective Date of Service: 07/25/21 Primary Care Provider: None Chief Complaint: Respiratory failure Patient still continues to remain very agitated on a propofol drip Review of Systems is unable to be obtained Physical Examination - Vital Signs Temperature: 98.8 F Blood Pressure: 95/57 Pulse: 91 Respirations: 15 Pulse Ox (%): 96 - Physical Exam General: Unresponsive Respiratory: Expiratory wheezes Cardiovascular: No edema - Studies Microbiology Data (last 24 hrs): 07/24/21 02:50 Clean Catch Urine [place] Count - Final No growth. 07/24/21 02:50 Clean Catch Urine - Final No growth. Assessment & Plan - Problems (Diagnosis) (1) Respiratory failure Current Visit: Yes Status: Acute Plan: Respiratory failure condition stable patient now is on pressure control will re duce pressure control to 20 wean off propofol use Ativan and Dilaudid as needed troponins elevated probably non-STEMI white count blood cultures negative start tube feeds otherwise no other changes in medication chest x-ray reviewed echocardiogram pending patient is anticoagulated reduce dose of Solu-Medrol on minimal oxygen Qualifiers: Chronicity: unspecified
[2021-07-25] MEDS: HYDROMORPHONE HCL 2 MG/ML inj IV PRN ×2 (14:55→20:11)
--- NOTE | 2021-07-25 15:09 | ECHO ---
HEIGHT: 5 ft 9 in WEIGHT: 176 lb 5.917 oz DATE OF STUDY: 07/25/[address]: Alexey Curry DO 2-DIMENSIONAL: YES M.MODE: YES DOPPLER: YES COLOR FLOW: YES TDS: NO PORTABLE: NO DEFINITY: NO BUBBLE STUDY: NO DIAGNOSIS: ACUTE RESPIRATORY FAILURE CARDIAC HISTORY: CATHERIZATION: NO SURGERY: NO PROSTHETIC VALVE: NO PACEMAKER: NO MEASUREMENTS (cm) DIASTOLIC (NORMALS) SYSTOLIC (NORMALS) IVSd 1.1 (0.6-1.2) LA Diam 1.9 (1.9-4.0) LVEF 64% LVIDd 2.4 (3.5-5.7) LVIDs 1.6 (2.0-3.5) %FS 33% LVPWd 1.1 (0.6-1.2) Ao Diam 2.0 (2.0-3.7) 2 DIMENSIONAL ASSESSMENT: RIGHT ATRIUM: NORMAL LEFT ATRIUM: NORMAL RIGHT VENTRICLE: NORMAL LEFT VENTRICLE: NORMAL TRICUSPID VALVE: NORMAL MITRAL VALVE: NORMAL PULMONIC VALVE: NORMAL AORTIC VALVE: NORMAL PERICARDIAL EFFUSION: NONE AORTIC ROOT: NORMAL LEFT VENTRICULAR WALL MOTION: NORMAL DOPPLER/COLOR FLOW: NORMAL COMMENTS: NORMAL LEFT VENTRICULAR EJECTION FRACTION 60-65%. NORMAL WALL MOTION. TECHNOLOGIST: Franko PARRA
--- NOTE | 2021-07-25 20:22 | RAD REPORT ---
EXAM DESCRIPTION: RAD - Chest Single View - 07/25/2021 8:01 pm CLINICAL HISTORY: SOB COMPARISON: Chest Single View dated 07/25/2021; Chest Single View dated 07/24/2021; Chest Single View dated 07/05/2021; Chest Single View dated 06/19/2021 FINDINGS: Lines: Endotracheal tube above the janki. NG tube below the diaphragm. Lungs: No evidence of edema or pneumonia. Pleural: No significant pleural effusions or pneumothorax. Cardiac: The heart size is within normal limits. Bones: No acute fractures. Other: IMPRESSION: No acute cardiopulmonary disease. Endotracheal tube and NG tube noted.
[2021-07-25] MEDS ORDERED: propofoL 200 MG/20 ML VIAL IV ONE (20:38)
[2021-07-25] MEDS: ATORVASTATIN 40 MG TAB PO SCH (21:00)
[2021-07-25] MEDS: ENOXAPARIN 40 MG/0.4 ML SQ SCH (21:35)
--- NOTE | 2021-07-25 22:09 | RAD REPORT ---
EXAM DESCRIPTION: RAD - Chest Single View - 07/25/2021 10:04 pm CLINICAL HISTORY: tube placement COMPARISON: Chest Single View dated 07/25/2021; Chest Single View dated 07/25/2021; Chest Single View dated 07/24/2021; Chest Single View dated 07/05/2021 FINDINGS: The endotracheal tube is been advanced to the level of the aortic arch. NG tube below the diaphragm. IMPRESSION: Endotracheal tube is been advanced to the level of the aortic arch and remains in satisf actory position.
[2021-07-25] MEDS ORDERED: ENOXAPARIN 40 MG/0.4 ML SQ ONE (22:15)
[2021-07-26] MEDS: HYDROMORPHONE HCL 2 MG/ML inj IV PRN ×3 (00:17→08:23)
[2021-07-26] MEDS: HALOPERIDOL LACT 5 MG/ML INJ IV PRN ×2 (01:10→06:05)
[2021-07-26] MEDS: METHYLPREDNISOLONE 40 MG INJ IV SCH ×2 (01:10→08:54)
[2021-07-26] MEDS: LORazepam 2 MG/ML VIAL IV PRN (01:43)
[2021-07-26] MEDS: IPRATROPIUM BROM 0.5MG/2.5ML NEB SCH ×4 (02:00→20:00)
[2021-07-26] MEDS: ALBUTEROL 2.5 MG/3 ML NEB SOL NEB SCH ×4 (02:00→20:00)
[2021-07-26] MEDS ORDERED: HALOPERIDOL LACT 5 MG/ML INJ ONE ×2 (02:04→07:01)
[2021-07-26] MEDS ORDERED: METHYLPREDNISOLONE 40 MG INJ ONE ×2 (02:05→09:42)
[2021-07-26] MEDS ORDERED: LORazepam 2 MG/ML VIAL ONE (02:37)
[2021-07-26] MEDS: MIDAZOLAM HCL 2 MG/2 ML INJ IV PRN (03:04)
[2021-07-26] MEDS: D5 0.9 NS 1,000 ML IV SCH ×2 (03:04→11:32)
[2021-07-26] MEDS ORDERED: IPRATROPIUM BROM 0.5MG/2.5ML ONE ×4 (03:43→20:22)
[2021-07-26] MEDS ORDERED: D5 0.9 NS 0 ML IV ONE (03:59)
[2021-07-26] MEDS ORDERED: MIDAZOLAM HCL 2 MG/2 ML INJ ONE (04:02)
[2021-07-26] MEDS: propofoL 1,000 MG/100 ML VIAL IV PRN ×2 (04:23→09:01)
[2021-07-26 04:28] LABS: Absolute Lymphocytes (CBC) 0.7 K/uL (0.7-4.9); Basophils % 0.4 % (0-1.3); Hematocrit 35.2 % (39.6-49.0); MPV 8.2 fL (7.6-11.3); RBC Red Blood Cell Count 3.69 M/uL (4.33-5.43)
[2021-07-26 05:03] LABS: ALT/SGPT 23 U/L (12-78); AST/SGOT 29 U/L (15-37); Albumin 2.8 g/dL (3.4-5.0); Alkaline Phosphatase 47 U/L (45-117); BUN Blood Urea Nitrogen 14 mg/dL (7-18); Bicarbonate 23 mmol/L (21-32); Bilirubin Total 0.6 mg/dL (0.2-1.0); Glucose Level 153 mg/dL (74-106); Magnesium 2.5 mg/dL (1.8-2.4); Potassium 4.3 mmol/L (3.5-5.1); Protein, Total 5.7 g/dL (6.4-8.2); Sodium Level 140 mmol/L (136-145)
[2021-07-26] MEDS ORDERED: propofoL 1,000 MG/100 ML VIAL IV ONE ×2 (05:17→09:58)
[2021-07-26] MEDS ORDERED: HYDROMORPHONE HCL 2 MG/ML inj ONE ×3 (05:39→19:35)
[2021-07-26] MEDS: INSULIN -REGULAR HUMAN 50 UNIT/0.5 ML ML SQ SCH ×3 (06:00→12:00)
[2021-07-26] MEDS: CEFTRIAXONE 1 GM/NS 50 ML 1 GM/50 ML BAG IV SCH (06:00)
[2021-07-26] MEDS: FAMOTIDINE 20 MG/2 ML VIAL IV SCH (08:55)
[2021-07-26] MEDS: ENOXAPARIN 40 MG/0.4 ML SQ SCH ×2 (08:56→20:23)
[2021-07-26] MEDS: ASPIRIN EC 81 MG TAB PO SCH (08:56)
[2021-07-26] MEDS ORDERED: ALBUTEROL 2.5 MG/3 ML NEB SOL ONE ×3 (09:00→20:21)
[2021-07-26] MEDS ORDERED: ASPIRIN 81 MG CHEWABLE TABLET ONE (09:41)
[2021-07-26] MEDS ORDERED: FAMOTIDINE 20 MG/2 ML VIAL IV ONE (09:42)
[2021-07-26] MEDS ORDERED: ENOXAPARIN 40 MG/0.4 ML SQ ONE ×2 (09:42→20:19)
[2021-07-26] MEDS ORDERED: D5 0.9 NS 1,000 ML IV ONE (09:42)
--- NOTE | 2021-07-26 13:49 | P.PN ---
Subjective Date of Service: 07/26/21 Primary Care Provider: None Chief Complaint: Respiratory failure Much better extubated/ Smokes weed/ Used to take Advair Review of Systems Respiratory: Shortness of Breath Physical Examination - Vital Signs Temperature: 98.2 F Blood Pressure: 127/83 Pulse: 106 Respirations: 15 Pulse Ox (%): 92 - Physical Exam General: Alert, In no apparent distress, Oriented x3 Respiratory: Expiratory wheezes Cardiovascular: No edema, Normal S1 S2 Assessment & Plan - Problems (Diagnosis) (1) Respiratory failure Current Visit: Yes Status: Acute Plan: Doign much better extubated chiquis underling COPD/Asthma, Extubated tody/ poss DC am on Advair and pred Qualifiers: Chronicity: unspecified
[2021-07-26] MEDS ORDERED: PROMETHAZINE INJ 25 MG/ML AMP ONE (19:34)
[2021-07-26] MEDS ORDERED: NA CHLORIDE 0.9% 1,000 ML ONE (19:35)
[2021-07-26] MEDS ORDERED: ATORVASTATIN 20 MG TAB ONE ×2 (20:18→20:26)
[2021-07-26] MEDS ORDERED: predniSONE 20 MG TAB ONE (20:21)
[2021-07-26] MEDS: predniSONE 20 MG TAB PO SCH (20:23)
[2021-07-26] MEDS: ATORVASTATIN 40 MG TAB PO SCH (20:27)
[2021-07-26] MEDS: DULERA 200/5 (MOMETASONE/FORMOTEROL) INHALER IH SCH (21:00)
[2021-07-27] MEDS: ALBUTEROL 2.5 MG/3 ML NEB SOL NEB SCH ×3 (02:00→14:00)
[2021-07-27] MEDS: IPRATROPIUM BROM 0.5MG/2.5ML NEB SCH ×3 (02:00→14:00)
[2021-07-27 03:48] LABS: Absolute Lymphocytes (CBC) 0.9 K/uL (0.7-4.9); Basophils % 0.7 % (0-1.3); Hematocrit 36.6 % (39.6-49.0); Lymphocytes % 6.4 % (15.3-44.8); MPV 8.5 fL (7.6-11.3); RBC Red Blood Cell Count 3.87 M/uL (4.33-5.43)
[2021-07-27 04:03] LABS: Bilirubin Total 0.7 mg/dL (0.2-1.0); Magnesium 2.5 mg/dL (1.8-2.4); Protein, Total 6.1 g/dL (6.4-8.2)
[2021-07-27 05:03] VITALS: BMI 25.9
[2021-07-27] MEDS ORDERED: IPRATROPIUM BROM 0.5MG/2.5ML ONE ×3 (08:13→20:47)
[2021-07-27] MEDS ORDERED: ALBUTEROL 2.5 MG/3 ML NEB SOL ONE ×3 (08:13→20:47)
[2021-07-27] MEDS ORDERED: ASPIRIN 81 MG CHEWABLE TABLET ONE (08:22)
[2021-07-27] MEDS ORDERED: ENOXAPARIN 40 MG/0.4 ML SQ ONE (08:23)
[2021-07-27] MEDS ORDERED: FAMOTIDINE 20 MG/2 ML VIAL IV ONE (08:23)
[2021-07-27] MEDS ORDERED: predniSONE 20 MG TAB ONE (08:24)
[2021-07-27] MEDS: ASPIRIN EC 81 MG TAB PO SCH (08:42)
[2021-07-27] MEDS: predniSONE 20 MG TAB PO SCH (08:43)
[2021-07-27] MEDS: ENOXAPARIN 40 MG/0.4 ML SQ SCH (08:43)
[2021-07-27 08:52] VITALS: O2SAT 97
--- NOTE | 2021-07-27 10:29 | P.PN ---
Subjective Date of Service: 07/25/21 Chart reviewed. Patient remains intubated. Patient oxygenation status is stable. Patient is waking up and following some commands according to the nursing staff but he gets really agitated whenever his sedation is stopped completely. Continued gradually waking him up and then plan to extubate in the morning if okay with Pulmonary Review of Systems is unable to be obtained Physical Examination - Vital Signs Temperature: 98.3 F Blood Pressure: 151/81 Pulse: 106 Respirations: 18 Pulse Ox (%): 92 - Physical Exam General: Other (Intubated and sedated in following commands) Respiratory: Clear to auscultation bilaterally, Normal air movement, Expiratory wheezes Cardiovascular: Regular rate/rhythm, Normal S1 S2, No murmurs Gastrointestinal: Normal bowel sounds, Soft and benign, Non-distended, No tenderness Musculoskeletal: No clubbing, No swelling, No tenderness Neurological: Other (Intubated and sedated) - Studies Medications List Reviewed: Yes Assessment & Plan - Problems (Diagnosis) (1) Respiratory failure Current Visit: Yes Status: Acute Qualifiers: Chronicity: unspecified (2) Acute exacerbation of emphysema Current Visit: No Status: Acute (3) Exposed to tobacco smoke by family members smoking indoors Current Visit: No Status: Acute - Plan Plan: 1. Continue with albuterol and Atrovent nebs 2. Continue with IV steroids 3. Continue mechanical ventilation management per Pulmonary 4. Pulmonary consultation appreciated 5. Wean off the ventilator in a.m. 6. Repeat chest x-ray in the morning 7. GI and DVT prophylaxis Discharge Plan: Home Plan to discharge in: Greater than 2 days - Advance Directives Does patient have a Living Will: No Does patient have a Durable POA for Healthcare: No - Code Status/Comfort Care Code Status Assessed: Yes Code Status: Full Code Critical Care: Yes Time Spent Managing PTS Care (In Minutes): 45
--- NOTE | 2021-07-27 10:33 | P.PN ---
Date of Service: 07/26/21 Subjective Patient was extubated; patient clinically doing well with no issues. Transfer to the floor in a.m. possible discharge home in the morning Review of Systems is unable to be obtained Physical Examination - Vital Signs reviewed - Physical Exam General: Awake and following commands. Respiratory: Clear to auscultation bilaterally, Normal air movement, Expiratory wheezes Cardiovascular: Regular rate/rhythm, Normal S1 S2, No murmurs Gastrointestinal: Normal bowel sounds, Soft and benign, Non-distended, No tenderness Musculoskeletal: No clubbing, No swelling, No tenderness Neurological: Following commands and moving all his extremities Assessment & Plan - Problems (Diagnosis) (1) Respiratory failure Current Visit: Yes Status: Acute (2) Acute exacerbation of emphysema Current Visit: No Status: Acute (3) Exposed to tobacco smoke by family members smoking indoors Current Visit: No Status: Acute - Plan Plan: 1. Continue with albuterol and Atrovent nebs 2. Continue with IV steroids 3. Extubated and monitor off the ventilator 4. Pulmonary consultation appreciated 5. Weaned off the ventilator 6. Chest x-ray normal 7. GI and DVT prophylaxis
[2021-07-27] MEDS: DULERA 200/5 (MOMETASONE/FORMOTEROL) INHALER IH SCH (11:01)
[2021-07-27 16:07] VITALS: TEMP 98.5
[2021-07-27 18:21] VITALS: BP 144/96
== END 2021-07-28 | disposition home or self-care (01) | DRG 208 ==
LOC: ER 02:26 → ERHOLD 03:20
PROVIDERS: ADMIT Family Medicine; ATTEND Family Medicine
PROC: 0BH17EZ Insertion of Endotracheal Airway into Trachea, Via Natural or Artificial Opening (ICD-10-PCS; principal; 2021-07-24)
PROC: 5A1945Z Respiratory Ventilation, 24-96 Consecutive Hours (ICD-10-PCS; 2021-07-24)
DX: J96.02 Acute respiratory failure with hypercapnia (principal); J44.1 Chronic obstructive pulmonary disease with (acute) exacerbation; N17.9 Acute kidney failure, unspecified; N39.0 Urinary tract infection, site not specified; I24.8 Other forms of acute ischemic heart disease; J96.01 Acute respiratory failure with hypoxia; F12.10 Cannabis abuse, uncomplicated; R73.03 Prediabetes; E86.0 Dehydration; Z77.22 Contact with and (suspected) exposure to environmental tobacco smoke (acute) (chronic)
CPT/HCPCS: 31500; 36415; 51702; 71045; 80048; 80053; 80061; 80076; 80307; 80320; 81003; 81015; 82150; 82550; 82553; 82805; 82947; 83036; 83605; 83690; 83735; 84145; 84439; 84443; 84484; 85025; 85610; 85730; 87040; 87086; 87088; 92610; 93005; 93306; 94002; 94003; 94640; 97116; 97161; 99291; J0330; J0456; J0696; J1170; J1630; J1650; J2250; J2550; J2704; J2920; J2930; J3475; J7030; J7042; J7050; J7512; J7606; U0003

== ENCOUNTER 2024-09-01 15:12 | Emergency (ER) | payer OTHER ==
--- NOTE | 2024-09-01 17:32 | RAD REPORT ---
EXAMINATION: XR Foot Left 3 View CLINICAL INDICATION: Male, 54 years old. [facility] MAIN stepped on nail;Pain Bed Name: [id number] TECHNIQUE: 3 view radiographs of the left foot were obtained. COMPARISON: No prior exam. FINDINGS: No evidence of fracture or dislocation. Normal alignment. No evidence of arthropathy or oth er focal bone lesion. Soft tissues are unremarkable. No soft tissue swelling. No significant degenerative changes. Small calcaneal spur IMPRESSION: No acute or significant osseous abnormalities. Small calcaneal spur.
[2024-09-01] MEDS ORDERED: TDAP (DIPHTH,PERTUSS(ACELL),TET VAC) 0.5 ML VIAL IMVAC ONE (17:34)
--- NOTE | 2024-09-01 17:40 | EDPHYS ---
Physician Documentation [facility] Name: Oni Barroso Age: 54 yrs Sex: Male : 1970 Arrival Date: 09/01/2024 Time: 15:12 Bed 19 Private MD: ED Physician Liban Valdez HPI: 09/01 16:00 This 54 yrs old Male presents to ER via Ambulatory with complaints of stepped on nail cp (left foot). 16:00 The patient presents with an injury, a puncture wound, from a nail. The complaints cp affect the left foot. Context: stepped on nail in yard while taking out trash late last night while wearing shoes. 16:00 Associated signs and symptoms: The patient has no apparent associated signs or cp symptoms. Patient also reports left great toenail is partially seperated. Historical: - Allergies: 15:54 Bees; hb - PMHx: 15:54 Asthma; COPD; hb - PSHx: 15:54 Right hip (COPD); hb ROS: 16:05 Constitutional: History per HPI cp 16:05 Constitutional: Negative for body aches, chills, fever, cp 16:05 Respiratory: Negative for cough, shortness of breath, wheezing, 16:05 Abdomen/GI: Negative for abdominal pain, nausea, vomiting, and diarrhea, 16:05 MS/extremity: Positive for injury or acute deformity, puncture, of the left foot, 16:05 All other systems are negative, Exam: 16:10 Constitutional: The patient appears in no acute distress, alert, awake, non-toxic, well cp developed, well nourished, uncomfortable, 16:10 Head/Face: Normocephalic, atraumatic. cp 16:10 Chest/axilla: Inspection: normal, 16:10 Cardiovascular: Rate: normal, 16:10 Respiratory: the patient does not display signs of respiratory distress, Respirations: normal, no use of accessory muscles, no retractions, 16:10 Abdomen/GI: Exam negative for discomfort, distension, guarding, Inspection: abdomen appears normal, 16:10 Back: pain, is absent, 16:10 Musculoskeletal/extremity: Extremities: noted in the left foot: deep puncture wound noted to ball of foot in area of second and third toes, exam of left great toenail reveals mild purulent drainage with nail partially , mild swelling and redness of toe, Perfusion: the extremity is normally perfused throughout, Vital Signs: 15:53 BP 136 / 86; Pulse 82; Resp 16; Temp 97.8; Pulse Ox 100% ; hb MDM: 15:46 Medical Screening Exam initiated cp 17:40 Data reviewed: vital signs, nurses notes, radiologic studies, plain films, and as a cp result, I will discharge patient. 17:40 Differential diagnosis: fracture, foreign body, penetrating trauma, cellulitis. I cp considered the following discharge prescriptions or medication management in the emergency department Medications were administered in the Emergency Department. See MAR. Independent interpretation of the following test(s) in the Emergency Department X-Ray: My interpretation is images of left foot negative for foreign body and fracture. ED course: VSS. Patient declines removal of left great toenail at this time. Will prescribe antibiotics, discharge to home for continued monitoring. 09/01 15:56 Order name: XRAY Foot LEFT 3 View; Complete Time: 17:42 cp 09/01 17:42 Interpretation: Reviewed report. cp Administered Medications: 17:43 Drug: Boostrix Tdap IM 0.5 ml IM once; as a single dose Route: IM; Site: right deltoid; jb4 18:06 Follow up: Response: No adverse reaction jb4 18:00 Drug: LevOfloxacin PO 500 mg PO once Route: PO; jb4 18:07 Follow up: Response: Medication administered at discharge. jb4 Disposition Summary: 09/01/24 17:40 Discharge Ordered Notes: Location: Home cp Problem: new cp Symptoms: have improved cp Condition: Stable cp Diagnosis - Puncture wound without foreign body of foot - left cp - Open wound of toe with damage to nail - left great toe cp Followup: cp - With: Private Physician - When: 2 - 3 days - Reason: Worsening of condition Discharge Instructions: - Discharge Summary Sheet cp - Nail Avulsion cp - Puncture Wound cp Forms: - Medication Reconciliation Form cp - Antibiotic Education cp - Prescription Opioid Use cp - Patient Portal Instructions cp - Leadership Thank You Letter cp Prescriptions: - Ibuprofen 800 mg Oral Tablet - take 1 tablet ORAL route every 8 hours As needed take with food; 30 tablet; cp Refills: 0, Product Selection Permitted - levofloxacin 500 mg Oral tablet - take 1 tablet ORAL route once daily for 7 days continue taking evening of cp 09/02/2024; 6 tablet; Refills: 0, Product Selection Permitted Signatures: Dispatcher [employer] EDMS Kole Winston PA PA cp Baxter, Heather, RN RN Gene Quispe, RN RN jb4
--- NOTE | 2024-09-01 17:40 | ER ---
Nurse's Notes [facility] Name: Oni Barroso Age: 54 yrs Sex: Male : 1970 Arrival Date: 09/01/2024 Time: 15:12 Bed 19 Private MD: Diagnosis: Puncture wound without foreign body of foot-left;Open wound of toe with damage to nail-left great toe Presentation: 09/01 15:53 Chief complaint: Stepped on nail with left foot 2 nights ago, needs tetanus vaccine hb updated. Coronavirus screen: At this time, the client does not indicate any symptoms associated with coronavirus-19. Ebola Screen: No symptoms or risks identified at this time. Initial Sepsis Screen: Does the patient meet any 2 criteria? No. Patient's initial sepsis screen is negative. Does the patient have a suspected source of infection? No. Patient's initial sepsis screen is negative. Risk Assessment: Do you want to hurt yourself or someone else? Patient reports no desire to harm self or others. Onset of symptoms was August 30, 2024. 15:53 Method Of Arrival: Ambulatory hb 15:53 Acuity: LASHAUN 4 hb Historical: - Allergies: 15:54 Bees; hb - PMHx: 15:54 Asthma; COPD; hb - PSHx: 15:54 Right hip (COPD); hb Screenin:07 [facility] ED Fall Risk Assessment (Adult) History of falling in the last 3 months, jb4 including since admission No falls in past 3 months (0 pts) Confusion or Disorientation No (0 pts) Intoxicated or Sedated No (0 pts) Impaired Gait No (0 pts) Mobility Assist Device Used No (0 pt) Altered Elimination No (0 pt) Score/Fall Risk Level 0 - 2 = Low Risk Oriented to surroundings, Maintained a safe environment. Abuse screen: Denies threats or abuse. Nutritional screening: No deficits noted. Tuberculosis screening: No symptoms or risk factors identified. Assessment: 18:07 General: Appears in no apparent distress. comfortable, Behavior is calm, cooperative, jb4 appropriate for age. Pain: Complains of pain in left foot Pain radiates to left foot Pain currently is 5 out of 10 on a pain scale. Neuro: Level of Consciousness is awake, alert, obeys commands, Oriented to person, place, time, situation. Cardiovascular: Patient's skin is warm and dry. Respiratory: Airway is patent Respiratory effort is even, unlabored, Respiratory pattern is regular, symmetrical. Derm: Skin is intact, Skin is pink, warm \T\ dry. Musculoskeletal: Circulation, motion, and sensation intact. Range of motion: intact in all extremities. Vital Signs: 15:53 BP 136 / 86; Pulse 82; Resp 16; Temp 97.8; Pulse Ox 100% ; hb ED Course: 15:24 Patient arrived in ED. al6 15:33 Kole Wniston PA is PHCP. cp 15:33 Liban Valdez MD is Attending Physician. cp 15:54 Triage completed. hb 15:54 Arm band placed on. hb 16:29 XRAY Foot LEFT 3 View In Process Unspecified. EDMS 18:07 Patient has correct armband on for positive identification. Bed in low position. Call jb4 light in reach. Side rails up X 1. Provided Education on: discharge instructions.. 18:07 No provider procedures requiring assistance completed. Patient did not have IV access jb4 during this emergency room visit. Administered Medications: 17:43 Drug: Boostrix Tdap IM 0.5 ml IM once; as a single dose Route: IM; Site: right deltoid; jb4 18:06 Follow up: Response: No adverse reaction jb4 18:00 Drug: LevOfloxacin PO 500 mg PO once Route: PO; jb4 18:07 Follow up: Response: Medication administered at discharge. jb4 Medication: 18:07 VIS not applicable for this client. jb4 Outcome: 17:40 Discharge ordered by MD. cp 18:07 Discharged to home ambulatory, jb4 18:07 Condition: stable 18:07 Discharge instructions given to patient, Instructed on discharge instructions, follow up and referral plans. medication usage, Demonstrated understanding of instructions, follow-up care, medications, Prescriptions given X 2, 18:09 Patient left the ED. jb4 Signatures: Dispatcher [employer] EDLA Kole Winston PA PA cp Baxter, Heather, RN RN Gene Antoine RN RN jb4 Nellie Simental al6
[2024-09-01] MEDS ORDERED: levoFLOXacin 250 MG TAB ONE (17:57)
[2024-09-01 23:12] VITALS: BP 136/86; TEMP 97.8; O2SAT 100
== END 2024-09-01 18:09 | disposition home or self-care (01) ==
LOC: ER 15:12
DX: S91.332A Puncture wound without foreign body, left foot, initial encounter (principal); S91.202A Unspecified open wound of left great toe with damage to nail, initial encounter
CPT/HCPCS: 96372; 99284